=== PATIENT | female | born 1980 | race American Indian/Alaskan Native ===

== ENCOUNTER 2017-04-12 13:33 | Emergency (ER) | payer MEDICAID ==
[2017-04-12 13:44] VITALS: BMI 25.9
[2017-04-12] MEDS ORDERED: Sodium Chloride 0.9% 1,000 ML IV ONE (14:11)
--- NOTE | 2017-04-12 14:15 | C.PDOC ---
History Of Present Illness <Beryl Arenas - Last Filed: 04/12/17 20:17> <Hamlet Gonzalez DO - Last Filed: 04/13/17 08:08> 36 y/o female presents to ED with complaints of nausea and vomiting associated with decreased PO intake that began few days ago. Patient also reports few episodes of diarrhea since last night. Denies fever, blood in vomit or stool. Patient states she had an endoscopy done yesterday at another facility. She will follow up with PMD in 2 days then a GI the following days. (Carlos WARRENHamlet) <Beryl Arenas - Last Filed: 04/12/17 20:17> History Per: Patient History/Exam Limitations: no limitations Onset/Duration Of Symptoms: Days Current Symptoms Are (Timing): Still Present Radiation Of Pain To:: None Associated Symptoms: Nausea, Vomiting, Diarrhea. denies: Fever, Chest Pain, Constipation Exacerbating Factors: None Alleviating Factors: None Recent travel outside of the [place]: No Abnormal Vaginal Bleeding: No <Carlos WARRENHamlet - Last Filed: 04/13/17 08:08> Chief Complaint (Nursing): Abdominal Pain Past Medical History Reviewed: Historical Data, Nursing Documentation, Vital Signs - Medical History PMH: Seizures Surgical History: No Surg Hx Family History: States: No Known Family Hx - Social History Hx Alcohol Use: No Hx Substance Use: No - Immunization History Hx Tetanus Toxoid Vaccination: No Hx Influenza Vaccination: Yes Hx Pneumococcal Vaccination: No <Juliandavie Hamlet WARREN - Last Filed: 04/13/17 08:08> Vital Signs: Last Vital Signs Temp 97.8 F 04/12/17 19:24 Pulse 80 04/12/17 19:24 Resp 16 04/12/17 19:24 BP 132/81 04/12/17 19:24 Pulse Ox 100 04/12/17 19:24 Review Of Systems Constitutional: Negative for: Fever, Chills Cardiovascular: Negative for: Chest Pain Respiratory: Negative for: Cough, Shortness of Breath Gastrointestinal: Positive for: Nausea, Vomiting, Diarrhea Genitourinary: Negative for: Dysuria, Hematuria, Vaginal Bleeding Neurological: Negative for: Weakness, Numbness <Carlos WARRENHamlet - Last Filed: 04/13/17 08:08> Physical Exam - Physical Exam Appears: Well, Non-toxic, No Acute Distress Skin: Normal Color, Warm, Dry Head: Atraumatic, Normacephalic Eye(s): bilateral: Normal Inspection Oral Mucosa: Moist Neck: Supple Chest: Symmetrical, No Tenderness Cardiovascular: Rhythm Regular Respiratory: Normal Breath Sounds, No Decreased Breath Sounds, No Rales, No Rhonchi, No Wheezing Gastrointestinal/Abdominal: Soft, Tenderness (mild epigastric ), No Distention, No Guarding, No Rebound Neurological/Psych: Oriented x3, Normal Speech, Normal Cognition <Hamlet Gonzalez DO - Last Filed: 04/13/17 08:08> ED Course And Treatment - Laboratory Results Result Diagrams: 04/12/17 15:12 04/12/17 15:12 Pulse Ox Interpretation: Normal Progress Note: tolerating po Reevaluation Time: 20:17 Reassessment Condition: Improved <Beryl Arenas - Last Filed: 04/12/17 20:17> - Laboratory Results Result Diagrams: 04/12/17 15:12 04/12/17 15:12 O2 Sat by Pulse Oximetry: 96 (RA) Pulse Ox Interpretation: Normal - CT Scan/US Abdomen US Other Rad Studies (CT/US): Read By Radiologist, Radiology Report Reviewed CT/US Interpretation: Right upper quadrant abdominal ultrasound. History: Epigastric abdominal pain. Elevated liver enzymes. Comparison: None available. Technique: Real-time sonography was performed through the right upper quadrant of the abdomen. Findings: Liver: 17.9 centimeters in length. Increased echogenicity of hepatic parenchymal cortex suggestive for fatty infiltration versus hepatic parenchymal disease. Clinical correlation. Gallbladder: Cholelithiasis. Normal gallbladder wall thickness of 2 millimeters. Negative sonographic Pinzon's sign. Common bile duct measures 4 millimeters, within normal limits. Visualized portions of the pancreas are preserved. Pancreatic tail not well visualized. Visualized aorta and IVC are preserved. Right kidney: 11.8 x 5.3 x 5.8 centimeters. No calculi or hydronephrosis. Impression: 1. Cholelithiasis. Normal gallbladder wall thickness of 2 millimeters. No gross wall edema. Negative sonographic Pinzon's sign. 2. Prominent liver with diffuse increased echogenicity suggestive for fatty infiltration versus hepatic parenchymal disease. Clinical correlation. 3. Limited visualization of the pancreas. <Hamlet Gonzalez DO - Last Filed: 04/13/17 08:08> Medical Decision Making <Beryl Arenas - Last Filed: 04/12/17 20:17> <Hamlet Gonzalez DO - Last Filed: 04/13/17 08:08> Medical Decision Making: Administered Pepcid, Zofran, IV fluids. Ordered CT abdomen&pelvis, US of abdomen, blood work, urine culture and urinalysis. (Hamlet Gonzalez DO) Disposition Counseled Patient/Family Regarding: Studies Performed, Diagnosis, Need For Followup, Rx Given - Disposition Disposition Time: 20:18 <Beryl Arenas - Last Filed: 04/12/17 20:17> <Carlos WARRENHamlet - Last Filed: 04/13/17 08:08> - Disposition Referrals: Darvin Fortune MD [Staff Provider] - Disposition: HOME/ ROUTINE Condition: FAIR Additional Instructions: Please return if symptoms recur Prescriptions: Ondansetron ODT [Zofran ODT] 1 odt PO TID #15 odt Instructions: Nausea and Vomiting, Adult, Colic (DC) Forms: [employer] ([place]), Work Excuse - Clinical Impression Clinical Impression: Abdominal pain, Nausea, Vomiting, Diarrhea <Beryl Arenas - Last Filed: 04/12/17 20:17> - Scribe Statement The provider has reviewed the documentation as recorded by the Scribe <Carlos WARRENHamlet - Last Filed: 04/13/17 08:08> - Scribe Statement Flores Phillips All medical record entries made by the Scribe were at my direction and personally dictated by me. I have reviewed the chart and agree that the record accurately reflects my personal performance of the history, physical exam, medical decision making, and the department course for this patient. I have also personally directed, reviewed, and agree with the discharge instructions and disposition. (Hamlet Gonzalez DO)
[2017-04-12] MEDS ORDERED: Sodium Chloride 0.9% 1,000 ML ONE (14:37)
[2017-04-12 15:15] LABS: BASO % 0.3 % (0.0-2.0); EOS % 0.3 % (0.0-4.0); HEMOGLOBIN 10.8 g/dL (11.0-16.0); LYMPH # 0.7 K/uL (1.0-4.3); LYMPH % 15.7 % (20.0-40.0); MEAN CELL VOLUME 85.6 fL (81.0-99.0); MEAN CORPUSCULAR HEMOGLOBIN 28.6 pg (27.0-31.0); MEAN CORPUSCULAR HGB CONC 33.4 g/dL (33.0-37.0); MEAN PLATELET VOLUME 9.6 fL (7.2-11.7); MONO # 0.4 K/uL (0.0-0.8); MONO % 8.2 % (0.0-10.0); NEUT # 3.3 K/uL (1.8-7.0); NEUT % 75.5 % (50.0-75.0); NRBC % 0.1 % (0.0-2.0); RBC 3.76 Mil/uL (3.80-5.20); RED CELL DISTRIBUTION WIDTH 13.1 % (11.5-14.5); WHITE BLOOD COUNT 4.4 K/uL (4.8-10.8)
[2017-04-12 15:27] LABS: ALB/GLOB RATIO 0.7 (1.0-2.1); ALBUMIN 3.5 g/dL (3.5-5.0); CALCIUM 8.8 mg/dl (8.6-10.4)
--- NOTE | 2017-04-12 16:53 | US ---
Right upper quadrant abdominal ultrasound History: Epigastric abdominal pain. Elevated liver enzymes. Comparison: None available. Technique: Real-time sonography was performed through the right upper quadrant of the abdomen. Findings: Liver: 17.9 centimeters in length. Increased echogenicity of hepatic parenchymal cortex suggestive for fatty infiltration versus hepatic parenchymal disease. Clinical correlation. Gallbladder: Cholelithiasis. Normal gallbladder wall thickness of 2 millimeters. Negative sonographic Pinzon's sign. Common bile duct measures 4 millimeters, within normal limits. Visualized portions of the pancreas are preserved. Pancreatic tail not well visualized. Visualized aorta and IVC are preserved. Right kidney: 11.8 x 5.3 x 5.8 centimeters. No calculi or hydronephrosis. Impression: 1. Cholelithiasis. Normal gallbladder wall thickness of 2 millimeters. No gross wall edema. Negative sonographic Pinzon's sign. 2. Prominent liver with diffuse increased echogenicity suggestive for fatty infiltration versus hepatic parenchymal disease. Clinical correlation. 3. Limited visualization of the pancreas.
[2017-04-12 17:04] LABS: SQUAMOUS EPITHIAL 1 /hpf (0-5); URINE BACTERIA RARE (<OCC); URINE BILIRUBIN NEGATIVE (NEGATIVE); URINE BLOOD NEGATIVE (NEGATIVE); URINE CLARITY Hazy (Clear); URINE COLOR Yellow (YELLOW); URINE GLUCOSE (UA) NORMAL (Normal); URINE LEUKOCYTE ESTERASE NEG Leu/uL (Negative); URINE NITRATE NEGATIVE (NEGATIVE); URINE PROTEIN 2+ mg/dL (NEGATIVE); URINE UROBILINOGEN NORMAL mg/dL (0.2-1.0)
[2017-04-12 19:25] VITALS: BP 132/81; PULSE 80; RESP 16; TEMP 97.8
--- NOTE | 2017-04-12 20:02 | CT ---
EXAM: CT Abdomen and Pelvis Without Intravenous Contrast EXAM DATE/TIME: Exam ordered 04/12/2017 5:46 PM CLINICAL HISTORY: 36 years old, female; Pain; Abdominal pain; Flank; Right upper quadrant (ruq); Additional info: Upper abdominal pain TECHNIQUE: Axial computed tomography images of the abdomen and pelvis without intravenous contrast. All CT scans at this facility use one or more dose reduction techniques, viz.: automated exposure control; ma/kV adjustment per patient size (including targeted exams where dose is matched to indication; i.e. head); or iterative reconstruction technique. Coronal and sagittal reformatted images were created and reviewed. COMPARISON: No relevant prior studies available. FINDINGS: Lower thorax: Hypoventilatory changes are noted in the dependent portion of both lung bases. ABDOMEN: Liver: Unremarkable. Gallbladder and bile ducts: Unremarkable. No calcified stones. No ductal dilation. Pancreas: Unremarkable. No ductal dilation. Spleen: Unremarkable. No splenomegaly. Adrenals: Unremarkable. No mass. Kidneys and ureters: There is a 2.2 mm calcification in the lower pole the right kidney. The distal right ureter is not clearly seen. A 2 mm calcification is noted in the region of the right distal ureter proximal to the ureterovesicular junction. There is minimal asymmetric stranding of the intrarenal that of the right kidney. Stomach and bowel: Unremarkable. No obstruction. No mucosal thickening. Appendix: No findings to suggest acute appendicitis. PELVIS: Bladder: Unremarkable. No stones. Reproductive: Unremarkable as visualized. ABDOMEN and PELVIS: Intraperitoneal space: Unremarkable. No free air. No significant fluid collection. Bones/joints: A cyst is noted on the iliac side of the left sacroiliac joint. No acute fracture. No dislocation. Soft tissues: Unremarkable. Vasculature: Unremarkable. No abdominal aortic aneurysm. Lymph nodes: Unremarkable. No enlarged lymph nodes. IMPRESSION: 1. 2.2 mm calcification in the lower pole of the right kidney with minimal asymmetric stranding of the intrarenal fat. 2. Poor visualization of the distal ureter as a discrete structure. 2 mm calcification noted in the region of the distal right ureter proximal to the ureterovesicular junction. This could represent a ureteral calculus or a vascular calcification.
[2017-04-13 08:09] VITALS: O2SAT 96
== END 2017-04-12 20:45 | disposition home or self-care (01) ==
LOC: C.ER 13:33
DX: R19.7 Diarrhea, unspecified (principal); R11.2 Nausea with vomiting, unspecified; R10.9 Unspecified abdominal pain
CPT/HCPCS: 74176; 76705; 80053; 81001; 83690; 85025; 87086; 87181; 96374; 96375; 99285; J2405; J7040

== ENCOUNTER 2017-05-04 14:28 | Emergency (ER) | payer MEDICAID ==
[2017-05-04 14:57] VITALS: BMI 25.8
[2017-05-04] MEDS ORDERED: Sodium Chloride 0.9% 1,000 ML IV ONE (15:34)
[2017-05-04] MEDS ORDERED: DiphenhydrAMINE 50 mg/ml Inj IVP STA (15:35)
--- NOTE | 2017-05-04 15:39 | C.PDOC ---
History Of Present Illness 36 yo female w/PMHx of SLE come in for evaluation of gradual onset of generalized bodyaches since today 5 AM. Pt sts, " all my muscle hurts". Pt denies recent illness, fever, chills, headache, dizziness, visual changes, neck pain, drooling, dysphasia, cough, dyspnea, CP, SOB, wheezing, palpitation, abd. pain, N/V/D, UTi sx, vaginal irritation or discharges. Ambulate to Ed, appears in pain, crying. Time Seen by Provider: 05/04/17 14:58 Chief Complaint (Nursing): Pain, Chronic History Per: Patient Onset/Duration Of Symptoms: Gradual Past Medical History Reviewed: Historical Data, Nursing Documentation, Vital Signs Vital Signs: Last Vital Signs Temp 98 F 05/04/17 17:14 Pulse 100 H 05/04/17 17:14 Resp 25 H 05/04/17 17:14 BP 154/100 H 05/04/17 17:14 Pulse Ox 100 05/04/17 17:14 - Medical History PMH: Gall Bladder Disease (Gallstones), Seizures Family History: States: No Known Family Hx - Social History Hx Tobacco Use: No Hx Alcohol Use: No Hx Substance Use: No - Immunization History Hx Tetanus Toxoid Vaccination: No Hx Influenza Vaccination: No Hx Pneumococcal Vaccination: No Review Of Systems Except As Marked, All Systems Reviewed And Found Negative. Constitutional: Negative for: Fever, Chills Eyes: Negative for: Vision Change ENT: Negative for: Ear Discharge, Nose Discharge, Throat Pain Cardiovascular: Negative for: Chest Pain Respiratory: Negative for: Cough, Shortness of Breath, Wheezing Gastrointestinal: Negative for: Nausea, Vomiting, Abdominal Pain, Diarrhea Genitourinary: Negative for: Dysuria Musculoskeletal: Positive for: Other (generalized bodyaches) Skin: Negative for: Rash Neurological: Negative for: Weakness, Numbness, Altered Mental Status, Headache , Dizziness Physical Exam - Physical Exam Appears: Well, Non-toxic, No Acute Distress Skin: Normal Color, Warm, Dry, No Rash Head: Normacephalic Eye(s): bilateral: PERRL Ear(s): Bilateral: Normal Nose: No Flaring, No Discharge Oral Mucosa: Moist, No Drooling Gingiva: No Erythema Throat: No Erythema, No Drooling Neck: Trachea Midline, No Midline Cervical Tenderness, No Paracervical Tenderness, No Step Off Deformity, Supple Cardiovascular: Rhythm Regular, No Murmur, No JVD Respiratory: No Decreased Breath Sounds, No Accessory Muscle Use, No Stridor, No Wheezing Gastrointestinal/Abdominal: Soft, No Tenderness, No Distention, No Guarding Back: No CVA Tenderness Extremity: Normal ROM, No Deformity, No Swelling Neurological/Psych: Oriented x3, Normal Speech, Normal Motor, Normal Sensation, Normal Reflexes ED Course And Treatment - Laboratory Results Result Diagrams: 05/04/17 15:48 05/04/17 15:48 Lab Interpretation: No Changes Compared To Prior Results ECG: Interpreted By Me, Viewed By Me (and ED attending) ECG Rhythm: Sinus Tachycardia Interpretation Of ECG: Sinus tachy@102/min, LAD, no acute T wave or ST-T changes. - Radiology CXR: Interpreted by Me, Viewed By Me CXR Interpretation: Yes: No Acute Disease Progress Note: AT 16:30, pt still in pain, crying, c/o generalized pain " my all muscle and joint aches". Morphine given. Pt was OBS in ED for 3.5 hour in ED. At 18:02, pt resting comfortably in bed, not in any apparent distress now. Pt admits, moderate improvement in pain after ED treatment. On re-evaluation, pt is afebrile, hemodynamicaly stable. Non-toxic. Ambulatory in ED with stable gait. PulseOx 100% RA. Neck: Supple, (-) meningeal sign, (-) JVD, (-) carotid bruits B/L. ENT: no acute findings. Lungs: CTA B/L, BS equal B/L. CVS : (+)S1S2, reg. Abd: benign, (-) guarding, (-) rebound. back: (-) CVA tenderness. Neurologicaly intact. Case discussed with ED attending , blood work review and appears without acute changes compare to previous visits. UA- (+)RBC pt admits on menstrual now. As per , steroid initiated, pt improved, and pt is stable for discharge with outpt f/u now. Attempt to call and have made, no response for 3 hours. results review and discussed with patient. Pt advised. ref. to f/u with PMD, Rh in 1 day for re- eval without fail. Return to ED if any worsening or new changes. Pt understand and agrees with discharges. Disposition Counseled Patient/Family Regarding: Studies Performed, Diagnosis, Need For Followup, Rx Given - Disposition Referrals: Hamlet Gillette DO [Doctor Osteopathy] - Darvin Fortune MD [Staff Provider] - Disposition: HOME/ ROUTINE Disposition Time: 18:15 Condition: STABLE Additional Instructions: Encourage fluids Take medication as prescribed Follow up with PMD, Rheumatology in 1 day without fail for re-evaluation. Return to ED if any worsening or new changes. Prescriptions: Prednisone [Deltasone] 40 mg PO DAILY #8 tablet traMADol [Ultram] 50 mg PO TID #10 tab Instructions: Lupus Forms: [facility] (Japanese), Work Excuse - Clinical Impression Clinical Impression: Myalgia, Arthralgia, Lupus (systemic lupus erythematosus)
[2017-05-04] MEDS ORDERED: DiphenhydrAMINE 50 mg/ml Inj ONE (15:40)
[2017-05-04] MEDS ORDERED: Sodium Chloride 0.9% 1,000 ML ONE (15:42)
[2017-05-04 15:56] LABS: BASO % 0.2 % (0.0-2.0); EOS % 0.9 % (0.0-4.0); HEMOGLOBIN 10.5 g/dL (11.0-16.0); LYMPH # 0.7 K/uL (1.0-4.3); LYMPH % 15.3 % (20.0-40.0); MEAN CELL VOLUME 84.6 fL (81.0-99.0); MEAN CORPUSCULAR HEMOGLOBIN 28.2 pg (27.0-31.0); MEAN CORPUSCULAR HGB CONC 33.3 g/dL (33.0-37.0); MEAN PLATELET VOLUME 9.5 fL (7.2-11.7); MONO # 0.3 K/uL (0.0-0.8); MONO % 6.1 % (0.0-10.0); NEUT # 3.8 K/uL (1.8-7.0); NEUT % 77.5 % (50.0-75.0); RBC 3.74 Mil/uL (3.80-5.20); RED CELL DISTRIBUTION WIDTH 13.5 % (11.5-14.5); WHITE BLOOD COUNT 4.9 K/uL (4.8-10.8)
[2017-05-04 16:09] LABS: ALB/GLOB RATIO 0.6 (1.0-2.1); ALBUMIN 3.5 g/dL (3.5-5.0); CALCIUM 8.5 mg/dl (8.6-10.4)
[2017-05-04 16:19] LABS: HCG,QUALITATIVE URINE NEGATIVE (NEGATIVE)
[2017-05-04 16:28] LABS: SQUAMOUS EPITHIAL 2 /hpf (0-5); URINE BACTERIA RARE (<OCC); URINE BILIRUBIN NEGATIVE (NEGATIVE); URINE BLOOD 2+ (NEGATIVE); URINE CLARITY Hazy (Clear); URINE COLOR Yellow (YELLOW); URINE GLUCOSE (UA) NORMAL (Normal); URINE HYALINE CAST 0-2 /lpf (0-2); URINE LEUKOCYTE ESTERASE TRACE Leu/uL (Negative); URINE PROTEIN 2+ mg/dL (NEGATIVE); URINE UROBILINOGEN NORMAL mg/dL (0.2-1.0)
[2017-05-04] MEDS ORDERED: Morphine 4 MG/ML VIAL ONE (16:47)
--- NOTE | 2017-05-04 17:12 | RAD ---
HISTORY: pain gen COMPARISON: No prior. TECHNIQUE: Chest PA and lateral FINDINGS: LUNGS: No active pulmonary disease. PLEURA: No significant pleural effusion identified. No pneumothorax apparent. CARDIOVASCULAR: Normal. OSSEOUS STRUCTURES: No significant abnormalities. VISUALIZED UPPER ABDOMEN: Normal. OTHER FINDINGS: None. IMPRESSION: No active disease.
[2017-05-04 18:13] LABS: BARBITURATES, UR NEGATIVE (NEGATIVE); BENZODIAZEPINES, UR NEGATIVE (NEGATIVE); OPIATES, UR NEGATIVE (NEGATIVE); PHENCYCLIDINE, UR NEGATIVE (NEGATIVE)
[2017-05-04 18:33] VITALS: BP 120/97; PULSE 101; TEMP 98.3
[2017-05-04 18:54] VITALS: RESP 18; O2SAT 100
== END 2017-05-04 18:54 | disposition home or self-care (01) ==
LOC: C.ER 14:28
DX: M79.1 Myalgia (principal); M32.9 Systemic lupus erythematosus, unspecified; M25.50 Pain in unspecified joint
CPT/HCPCS: 71046; 80053; 80324; 80345; 80346; 80349; 80353; 80358; 80361; 81001; 82550; 83992; 84703; 85025; 87804; 93005; 96361; 96374; 96375; 99285; J1200; J1885; J2270; J2930; J7040

== ENCOUNTER 2017-05-11 21:15 | Inpatient (IN) | payer BC, MEDICAID ==
[2017-05-11 21:16] VITALS: BMI 25.8
[2017-05-11] MEDS ORDERED: Sodium Chloride 0.9% 1,000 ML IV ONE (21:45)
--- NOTE | 2017-05-11 21:50 | C.PDOC ---
History Of Present Illness 36 y/o female presents to the ED with abdominal pain. Patient seen here for the same complaint earlier this month and was diagnosed with gall stones. States she followed up with Dr. Edward, with no plan for surgical intervention and was advised to return for persisting pain. Today patient had creamy soup and around 8pm she developed sudden onset of right upper quadrant pain associated with nausea and vomiting. No fevers or diarrhea. Time Seen by Provider: 05/11/17 21:37 Chief Complaint (Nursing): Abdominal Pain History Per: Patient History/Exam Limitations: no limitations Onset/Duration Of Symptoms: Hrs Current Symptoms Are (Timing): Still Present Context: Food Location Of Pain/Discomfort: RUQ Past Medical History Reviewed: Historical Data, Nursing Documentation, Vital Signs Vital Signs: Last Vital Signs Temp 97.8 F 05/11/17 21:31 Pulse 91 H 05/11/17 21:31 Resp 18 05/11/17 21:31 BP 128/83 05/11/17 21:31 Pulse Ox 96 05/11/17 22:37 - Medical History PMH: Gall Bladder Disease (Gallstones), HTN, Seizures Denies: Chronic Kidney Disease Surgical History: No Surg Hx Family History: States: No Known Family Hx - Social History Hx Tobacco Use: No Hx Alcohol Use: No Hx Substance Use: No - Immunization History Hx Tetanus Toxoid Vaccination: No Hx Influenza Vaccination: Yes Hx Pneumococcal Vaccination: No Review Of Systems Except As Marked, All Systems Reviewed And Found Negative. Constitutional: Negative for: Fever, Chills Gastrointestinal: Positive for: Nausea, Vomiting, Abdominal Pain (RUQ). Negative for: Diarrhea Physical Exam - Physical Exam Appears: No Acute Distress, Other (Uncomfortable) Skin: Normal Color, Warm, Dry Head: Atraumatic, Normacephalic Eye(s): bilateral: Normal Inspection, PERRL, EOMI Nose: Normal Oral Mucosa: Moist Neck: Normal ROM, Supple Chest: Symmetrical Cardiovascular: Rhythm Regular Respiratory: Normal Breath Sounds, No Accessory Muscle Use Gastrointestinal/Abdominal: Soft, Tenderness (to epigastrium and right upper quadrant), Guarding Back: Normal Inspection, No CVA Tenderness, No Vertebral Tenderness Extremity: Bilateral: Atraumatic, Normal Color And Temperature, Normal ROM Neurological/Psych: Oriented x3, Normal Speech ED Course And Treatment - Laboratory Results Result Diagrams: 05/11/17 21:55 05/11/17 21:55 Lab Interpretation: Abnormal (Lipase 730, BUN 28, AST 52) O2 Sat by Pulse Oximetry: 96 (RA) Pulse Ox Interpretation: Normal Progress Note: Patient seen in the ED by surgery resident covering Dr Edward. - Physician Consult Information Time Consulting Physician Contacted: 23:27 Physician Contacted: Blane Edward Jr. Outcome Of Conversation: Patient to be admitted for treatment of gallstone pancreatitis. Medical Decision Making Medical Decision Making: Time: 21:43 Initial Plan: --Basic blood work --Lipase --IVF hydration --Toradol 30 mg IVP -- urine preg --US Abdomen Complete Disposition - Disposition Disposition: HOSPITALIZED Disposition Time: 23:27 Condition: STABLE - POA Present On Arrival: None - Clinical Impression Clinical Impression: Gallstone pancreatitis - Scribe Statement The provider has reviewed the documentation as recorded by the Lavern Méndez Provider Attestation: All medical record entries made by the Lavern were at my direction and personally dictated by me. I have reviewed the chart and agree that the record accurately reflects my personal performance of the history, physical exam, medical decision making, and the department course for this patient. I have also personally directed, reviewed, and agree with the discharge instructions and disposition.
[2017-05-11 21:58] LABS: BASO % 0.1 % (0.0-2.0); EOS % 0.2 % (0.0-4.0); HEMOGLOBIN 10.2 g/dL (11.0-16.0); LYMPH % 19.4 % (20.0-40.0); MEAN CELL VOLUME 84.1 fL (81.0-99.0); MEAN CORPUSCULAR HEMOGLOBIN 27.7 pg (27.0-31.0); MEAN CORPUSCULAR HGB CONC 32.9 g/dL (33.0-37.0); MEAN PLATELET VOLUME 8.6 fL (7.2-11.7); MONO # 0.4 K/uL (0.0-0.8); MONO % 7.5 % (0.0-10.0); NEUT # 3.8 K/uL (1.8-7.0); NEUT % 72.8 % (50.0-75.0); NRBC % 0.1 % (0.0-2.0); RBC 3.7 Mil/uL (3.80-5.20); RED CELL DISTRIBUTION WIDTH 13.8 % (11.5-14.5); WHITE BLOOD COUNT 5.2 K/uL (4.8-10.8)
[2017-05-11 22:16] LABS: ALB/GLOB RATIO 0.7 (1.0-2.1); ALBUMIN 3.6 g/dL (3.5-5.0); ALT/SGPT 36 U/L (9-52); AST/SGOT 52 U/L (14-36); BLOOD UREA NITROGEN 28 mg/dL (7-17); CALCIUM 8.8 mg/dl (8.6-10.4); GFR AFRICAN-AMERICAN > 60; GFR NON-AFRICAN AMERICAN > 60; LIPASE 730 U/L (23-300)
--- NOTE | 2017-05-11 23:04 | CP.PCM.CON ---
Past Patient History - Infectious Disease Hx of Infectious Diseases: None - Past Social History Smoking Status: Never Smoked - CARDIAC Hx Hypertension: Yes - PULMONARY Hx Respiratory Disorders: No - NEUROLOGICAL Hx Seizures: Yes - HEENT Hx HEENT Problems: No - RENAL Hx Chronic Kidney Disease: No - ENDOCRINE/METABOLIC Hx Endocrine Disorders: Yes Hx Systemic Lupus Erythematosus: Yes - HEMATOLOGICAL/ONCOLOGICAL Hx Blood Disorders: No - INTEGUMENTARY Hx Dermatological Problems: No - MUSCULOSKELETAL/RHEUMATOLOGICAL Hx Musculoskeletal Disorders: No - GASTROINTESTINAL Hx Gall Bladder Disease: Yes (Gallstones) - GENITOURINARY/GYNECOLOGICAL Hx Genitourinary Disorders: No - PSYCHIATRIC Hx Substance Use: No - SURGICAL HISTORY Hx Surgeries: No - ANESTHESIA Hx Anesthesia: No Meds Allergies/Adverse Reactions: Allergies Allergy/AdvReac Type Severity Reaction Status Date / Time No Known Allergies Allergy Verified 05/11/17 21:35 Results - Vital Signs Recent Vital Signs: Last Vital Signs Temp 97.8 F 05/11/17 21:31 Pulse 91 H 05/11/17 21:31 Resp 18 05/11/17 21:31 BP 128/83 05/11/17 21:31 Pulse Ox 96 05/11/17 22:37 - Labs Result Diagrams: 05/11/17 21:55 05/11/17 21:55 Labs: Laboratory Results - last 24 hr 05/11/17 05/11/17 05/11/17 21:55 21:55 22:43 WBC 5.2 RBC 3.70 L Hgb 10.2 L Hct 31.1 L MCV 84.1 MCH 27.7 MCHC 32.9 L RDW 13.8 Plt Count 266 MPV 8.6 Neut % (Auto) 72.8 Lymph % (Auto) 19.4 L [place] % (Auto) 7.5 Eos % (Auto) 0.2 Baso % (Auto) 0.1 Neut # (Auto) 3.8 Lymph # (Auto) 1.0 [place] # (Auto) 0.4 Eos # (Auto) 0.0 Baso # (Auto) 0.0 Sodium 137 Potassium 4.4 Chloride 104 Carbon Dioxide 24 Anion Gap 14 BUN 28 H Creatinine 1.0 Est GFR ( Amer) > 60 Est GFR (Non-Af Amer) > 60 Random Glucose 108 H Calcium 8.8 Total Bilirubin 0.4 AST 52 H ALT 36 Alkaline Phosphatase 124 Total Protein 8.7 H Albumin 3.6 Globulin 5.1 H Albumin/Globulin Ratio 0.7 L Lipase 730 H Urine HCG, Qual Negative
--- NOTE | 2017-05-11 23:29 | US ---
EXAM: US Abdomen Complete CLINICAL HISTORY: 36 years old, female; Pain; Abdominal pain; Generalized; Additional info: Abd pain TECHNIQUE: Real-time ultrasound of the abdomen (complete) with image documentation. COMPARISON: CT - ABD PELVIS W/O PO OR IV CONT 2017-04-12 19:06 FINDINGS: Liver: Fatty infiltration. No mass. No intrahepatic ductal dilatation. Gallbladder: Gallstones. No wall thickening. No pericholecystic fluid. No sonographic Pinzon's sign. Common bile duct: No dilatation. No stones. Pancreas: Unremarkable as visualized. Kidneys: Normal echogenicity. No hydronephrosis. Spleen: No splenomegaly. Aorta: Unremarkable. No aneurysm. Inferior vena cava: Unremarkable. Free fluid: No significant free fluid. IMPRESSION: 1. Cholelithiasis. 2. Incidental/non-acute findings are described above.
[2017-05-11] MEDS ORDERED: Sodium Chloride 0.9% 1,000 ML IV SCH (23:45)
--- NOTE | 2017-05-12 00:07 | CP.PCM.HP ---
History of Present Illness - History of Present Illness History of Present Illness: Surgery H&P. Dr. Edward 36yo F with PMHx of Lupus, Seizures, HTN here for evaluation of abdominal pain. Patient states that the pain is located in the RUQ, described as sharp, started at 8PM today. Last meal was 5PM (cream soup and beans). She reports mild nausea for the past week and vomiting which started today at 8PM, non bilious, non bloody. She reports similar episodes of pain previously and attributes it to her known gallstones. Denies any F/C. No CP/SOB. No headaches. Denies any urinary complaints. Denies any bowel habit changes. No sick contacts. PMHx: Lupus, Seizures, HTN PSHx: Denies Family Hx: DM, HTN (mother and sister) Social Hx: Denies tobacco use, denies ETOH, Denies illicit drugs. Lives at home with family NKDA Present on Admission - Present on Admission Any Indicators Present on Admission: No Review of Systems - Review of Systems All systems: reviewed and no additional remarkable complaints except - Constitutional Constitutional: Anorexia. absent: Chills, Fever - Cardiovascular Cardiovascular: absent: Chest Pain, Dyspnea - Gastrointestinal Gastrointestinal: Abdominal Pain, Nausea, Vomiting. absent: Change in Bowel Habits, Diarrhea, Hematemesis, Hematochezia - Genitourinary Genitourinary: absent: Difficulty Urinating, Dysuria - Neurological Neurological: absent: Dizziness, Headaches Past Patient History - Infectious Disease Hx of Infectious Diseases: None - Past Social History Smoking Status: Never Smoked Alcohol: None Drugs: Denies Home Situation {Lives}: With Family - CARDIAC Hx Hypertension: Yes - PULMONARY Hx Respiratory Disorders: No - NEUROLOGICAL Hx Seizures: Yes - HEENT Hx HEENT Problems: No - RENAL Hx Chronic Kidney Disease: No - ENDOCRINE/METABOLIC Hx Endocrine Disorders: Yes Hx Systemic Lupus Erythematosus: Yes - HEMATOLOGICAL/ONCOLOGICAL Hx Blood Disorders: No - INTEGUMENTARY Hx Dermatological Problems: No - MUSCULOSKELETAL/RHEUMATOLOGICAL Hx Musculoskeletal Disorders: No - GASTROINTESTINAL Hx Gall Bladder Disease: Yes (Gallstones) - GENITOURINARY/GYNECOLOGICAL Hx Genitourinary Disorders: No - PSYCHIATRIC Hx Substance Use: No - SURGICAL HISTORY Hx Surgeries: No - ANESTHESIA Hx Anesthesia: No Meds Allergies/Adverse Reactions: Allergies Allergy/AdvReac Type Severity Reaction Status Date / Time No Known Allergies Allergy Verified 05/11/17 21:35 Physical Exam - Constitutional Appears: Non-toxic, No Acute Distress - Head Exam Head Exam: ATRAUMATIC, NORMAL INSPECTION, NORMOCEPHALIC - Eye Exam Eye Exam: EOMI, Normal appearance. absent: Scleral icterus - ENT Exam ENT Exam: Mucous Membranes Dry - Respiratory Exam Respiratory Exam: NORMAL BREATHING PATTERN. absent: Accessory Muscle Use, Respiratory Distress - Cardiovascular Exam Cardiovascular Exam: RRR. absent: JVD - GI/Abdominal Exam GI & Abdominal Exam: Soft. absent: Distended, Firm, Guarding, Rebound, Rigid Additional comments: Tender to palpation RUQ and epigastric area. Does exhibit positive Pinzon's sign soft, non-distended. No rebound. no guarding. - Extremities Exam Extremities exam: Positive for: normal inspection. Negative for: calf tenderness - Neurological Exam Neurological exam: Alert, Oriented x3 - Skin Skin Exam: Dry, Intact, Normal Color, Warm Results - Vital Signs Recent Vital Signs: Last Vital Signs Temp 97.8 F 05/11/17 21:31 Pulse 91 H 05/11/17 21:31 Resp 18 05/11/17 21:31 BP 128/83 05/11/17 21:31 Pulse Ox 96 05/11/17 23:34 - Labs Result Diagrams: 05/11/17 21:55 05/11/17 21:55 Labs: Laboratory Results - last 24 hr 05/11/17 05/11/17 05/11/17 21:55 21:55 22:43 WBC 5.2 RBC 3.70 L Hgb 10.2 L Hct 31.1 L MCV 84.1 MCH 27.7 MCHC 32.9 L RDW 13.8 Plt Count 266 MPV 8.6 Neut % (Auto) 72.8 Lymph % (Auto) 19.4 L [place] % (Auto) 7.5 Eos % (Auto) 0.2 Baso % (Auto) 0.1 Neut # (Auto) 3.8 Lymph # (Auto) 1.0 [place] # (Auto) 0.4 Eos # (Auto) 0.0 Baso # (Auto) 0.0 Sodium 137 Potassium 4.4 Chloride 104 Carbon Dioxide 24 Anion Gap 14 BUN 28 H Creatinine 1.0 Est GFR ( Amer) > 60 Est GFR (Non-Af Amer) > 60 Random Glucose 108 H Calcium 8.8 Total Bilirubin 0.4 AST 52 H ALT 36 Alkaline Phosphatase 124 Total Protein 8.7 H Albumin 3.6 Globulin 5.1 H Albumin/Globulin Ratio 0.7 L Lipase 730 H Urine HCG, Qual Negative Assessment & Plan - Assessment and Plan (Free Text) Assessment: 36yo F with possible Gallstone pancreatitis Plan: - IVF - NPO except meds - Pain management - anti-emetics - f/u AM labs - f/u GI consult Further recs as per Dr. Wagner Andrade PGY1 surgery pager: [phone]
[2017-05-12] MEDS ORDERED: Sodium Chloride 0.9% 1,000 ML IV ONE (00:18)
[2017-05-12 01:07] LABS: HDL CHOLESTEROL 37 mg/dL (30-70)
[2017-05-12] MEDS: HYDROmorphone 0.5 mg/0.5 ml ISec IVP PRN (01:14)
[2017-05-12 01:18] LABS: LDL CHOLESTEROL 71 mg/dL (0-129)
[2017-05-12] MEDS: Sodium Chloride 0.45% 1,000 ML IV SCH ×2 (01:23→20:30)
[2017-05-12 08:30] LABS: BASO % 0.3 % (0.0-2.0); EOS % 0.6 % (0.0-4.0); HEMOGLOBIN 10.1 g/dL (11.0-16.0); LYMPH % 27.6 % (20.0-40.0); MEAN CELL VOLUME 84.6 fL (81.0-99.0); MEAN CORPUSCULAR HGB CONC 33.1 g/dL (33.0-37.0); MEAN PLATELET VOLUME 8.3 fL (7.2-11.7); MONO # 0.4 K/uL (0.0-0.8); MONO % 9.3 % (0.0-10.0); NEUT # 2.3 K/uL (1.8-7.0); NEUT % 62.2 % (50.0-75.0); RBC 3.59 Mil/uL (3.80-5.20); RED CELL DISTRIBUTION WIDTH 13.6 % (11.5-14.5); WHITE BLOOD COUNT 3.8 K/uL (4.8-10.8)
[2017-05-12 08:34] LABS: PROTHROMBIN TIME 10.8 SECONDS (9.7-12.2)
[2017-05-12 09:42] LABS: ALB/GLOB RATIO 0.7 (1.0-2.1); ALT/SGPT 58 U/L (9-52); AST/SGOT 122 U/L (14-36); BLOOD UREA NITROGEN 23 mg/dL (7-17); CALCIUM 7.9 mg/dl (8.6-10.4); GFR AFRICAN-AMERICAN > 60; GFR NON-AFRICAN AMERICAN > 60
[2017-05-12] MEDS: Enoxaparin 40 mg Syringe SC SCH (10:38)
--- NOTE | 2017-05-12 10:47 | CP.PCM.PN ---
Subjective - Date & Time of Evaluation Date of Evaluation: 05/12/17 Time of Evaluation: 10:25 - Subjective Subjective: Medicine progress note for Dr. Horvath's service: Patient is a 36 year old female with PMHx lupus, HTN, seizures who presented to the ED on 05/11/17 with complaint of epigastric/ RUQ abdominal pain. Patient was first seen in our ED on 04/12/17 with similar complaint and diagnosed with gallstones by abdominal US/ CT. She was discharged at that time to follow up with Dr. Fortune, her PMD. Patient returned on 05/04/17 to the ED with complaint of diffuse pain. Patient advised to follow up with her PMD and sales applications engineer at that time. Patient now returns to the ED with complaint of persistent abdominal pain. Patient states she saw Dr. Edward as outpatient. Patient states she was advised to return to hospital due to persistent nature of pain. Patient currently NPO as per surgical team and states her pain has decreased although she admits to nausea. Objective - Vital Signs/Intake and Output Vital Signs (last 24 hours): Temp Pulse Resp BP Pulse Ox 97.9 F 91 H 20 122/84 96 05/12/17 08:04 05/12/17 08:04 05/12/17 08:04 05/12/17 08:04 05/12/17 08:04 Intake and Output: 05/12/17 05/12/17 06:59 18:59 Intake Total 1999 Balance 1999 - Medications Medications: Current Medications Enoxaparin Sodium (Lovenox) 40 mg SC DAILY [facility] Hydromorphone HCl (Dilaudid) 0.5 mg IVP Q6H PRN PRN Reason: Pain, severe (8-10) Last Admin: 05/12/17 01:14 Dose: 0.5 mg Hydroxychloroquine Sulfate (Plaquenil) 200 mg PO DAILY [facility] PRN Reason: Protocol Sodium Chloride (Sodium Chloride 0.45%) 1,000 mls @ 200 mls/hr IV .Q5H [facility] Last Admin: 05/12/17 01:23 Dose: 200 mls/hr Ketorolac Tromethamine (Toradol) 15 mg IV Q6 PRN PRN Reason: Pain, moderate (4-7) Levetiracetam (Keppra) 500 mg PO TID [facility] Lisinopril (Zestril) 10 mg PO DAILY [facility] Methotrexate (Methotrexate) 10 mg PO QWK [facility] Ondansetron HCl (Zofran Inj) 4 mg IVP Q6 PRN PRN Reason: Nausea/Vomiting Pneumococcal Polyvalent Vaccine (Pneumovax 23 Vaccine) 0.5 ml IM .ONCE ONE Stop: 05/15/17 10:01 - Labs Labs: 05/12/17 08:27 05/12/17 09:21 PT 10.8 SECONDS (9.7-12.2) 05/12/17 08:27 INR 1.0 05/12/17 08:27 APTT 24 SECONDS (21-34) 05/12/17 08:27 - Eye Exam Eye Exam: EOMI - ENT Exam ENT Exam: Mucous Membranes Moist - Respiratory Exam Respiratory Exam: Clear to Ausculation Bilateral, NORMAL BREATHING PATTERN - Cardiovascular Exam Cardiovascular Exam: +S1, +S2 - GI/Abdominal Exam GI & Abdominal Exam: Soft, Tenderness (epigastric), Normal Bowel Sounds. absent : Distended, Guarding, Rigid - Extremities Exam Extremities Exam: Normal Inspection. absent: Pedal Edema - Neurological Exam Neurological Exam: Alert, Awake - Psychiatric Exam Psychiatric exam: Normal Affect - Skin Skin Exam: Warm Assessment and Plan - Assessment and Plan (Free Text) Assessment: 36 year old female with persistent epigastric/ RUQ pain, possible gallstone pancreatitis Gallstone pancreatitis initial lipase 730 patient NPO per surgical team Abd US 05/11/17: cholelithiasis, no wall thickening or pericholecystic fluid. pancreas unremarkable as visualized Surgery, Dr. Edward, consulted- help appreciated GI, Dr. Oliver, consulted- help appreciated continue toradol and zofran for pain control and nausea, respectively History Lupus continue home medication plaquenil 200mg PO daily continue methotrexate 10mg PO weekly (takes four 2.5mg tablets on Friday) prednisone listed in home medications only for lupus flares- not currently taking History seizures continue home medication keppra 500mg PO TID History HTN continue home medication lisinopril 10mg PO daily Prophylactic measure lovenox 40mg SC daily all management as per Dr. Horvath
--- NOTE | 2017-05-12 12:18 | CP.PCM.CON ---
<Marie Horvath - Last Filed: 05/12/17 12:31> History of Present Illness - History of Present Illness History of Present Illness: PGY 4 GI Initial Consult Note Yanci Fernández is a 36F w/ hx of Lupus, seizures, HTN who presents to the ER with complaints of abd pain. Patient states that the pain is located in the RUQ , described as sharp and radiating towards the back. She states that it started last night after her last meal of cream soup and beans. She reports mild nausea for the past week and vomiting, non bilious, non bloody. She reports similar episode of pain for which she presented to the ER in 03/2017 week prior. At that time it was previously attributes her known gallstones. She was again seen in the ER 1 week ago for joint pain. She was discharged on prednisone 20mg PO daily for likely lupus flare. She notes that she is chronically constipated and only has a BM weekly. She describes her stools as hard. She denies any recent weightloss. She does take plaquenil daily but denies any recent medication changes. She reports have an EGD in Dec at [facility] for abd pain. she was found to have gastritis. She denies any melena or hematemesis. PMHx: Lupus, Seizures, HTN PSHx: Denies Family Hx: DM, HTN (mother and sister) Social Hx: Denies tobacco use, denies ETOH, Denies illicit drugs. Lives at home with family Endo hx: EGD DEC 2016 ROS: 12 point ROS conducted, neg other than above. Past Patient History - Infectious Disease Hx of Infectious Diseases: None - Past Medical History & Family History Past Medical History?: Yes - Past Social History Smoking Status: Never Smoked - CARDIAC Hx Hypertension: Yes - PULMONARY Hx Respiratory Disorders: No - NEUROLOGICAL Hx Neurological Disorder: Yes Hx Seizures: Yes (10/2016 last seizure) - HEENT Hx HEENT Problems: No - RENAL Hx Chronic Kidney Disease: No - ENDOCRINE/METABOLIC Hx Endocrine Disorders: Yes Hx Systemic Lupus Erythematosus: Yes - HEMATOLOGICAL/ONCOLOGICAL Hx Blood Disorders: No - INTEGUMENTARY Hx Dermatological Problems: No - MUSCULOSKELETAL/RHEUMATOLOGICAL Hx Falls: No - GASTROINTESTINAL Hx Gastrointestinal Disorders: Yes Hx Gall Bladder Disease: Yes (Gallstones) - GENITOURINARY/GYNECOLOGICAL Hx Genitourinary Disorders: No - PSYCHIATRIC Hx Substance Use: No - SURGICAL HISTORY Hx Surgeries: No - ANESTHESIA Hx Anesthesia: No Hx Anesthesia Reactions: No Hx Malignant Hyperthermia: No Has any member of the family had a problem w/ anesthesia?: No Meds Allergies/Adverse Reactions: Allergies Allergy/AdvReac Type Severity Reaction Status Date / Time No Known Allergies Allergy Verified 05/11/17 21:35 - Medications Medications: Current Medications Enoxaparin Sodium (Lovenox) 40 mg SC DAILY [facility] Last Admin: 05/12/17 10:38 Dose: Not Given Hydromorphone HCl (Dilaudid) 0.5 mg IVP Q6H PRN PRN Reason: Pain, severe (8-10) Last Admin: 05/12/17 01:14 Dose: 0.5 mg Hydroxychloroquine Sulfate (Plaquenil) 200 mg PO DAILY [facility] PRN Reason: Protocol Last Admin: 05/12/17 10:52 Dose: 200 mg Sodium Chloride (Sodium Chloride 0.45%) 1,000 mls @ 200 mls/hr IV .Q5H [facility] Last Admin: 05/12/17 01:23 Dose: 200 mls/hr Ketorolac Tromethamine (Toradol) 15 mg IV Q6 PRN PRN Reason: Pain, moderate (4-7) Levetiracetam (Keppra) 500 mg PO TID [facility] Last Admin: 05/12/17 10:40 Dose: 500 mg Lisinopril (Zestril) 10 mg PO DAILY [facility] Last Admin: 05/12/17 10:40 Dose: 10 mg Methotrexate (Methotrexate) 10 mg PO QWK [facility] Ondansetron HCl (Zofran Inj) 4 mg IVP Q6 PRN PRN Reason: Nausea/Vomiting Pneumococcal Polyvalent Vaccine (Pneumovax 23 Vaccine) 0.5 ml IM .ONCE ONE Stop: 05/15/17 10:01 Physical Exam - Constitutional Appears: Well, No Acute Distress - Head Exam Head Exam: ATRAUMATIC, NORMOCEPHALIC - Eye Exam Eye Exam: Normal appearance - ENT Exam ENT Exam: Mucous Membranes Moist, Normal Exam - Neck Exam Neck exam: Positive for: Normal Inspection - Respiratory Exam Respiratory Exam: Clear to Auscultation Bilateral, NORMAL BREATHING PATTERN. absent: Rales, Rhonchi, Wheezes, Respiratory Distress - Cardiovascular Exam Cardiovascular Exam: REGULAR RHYTHM, +S1, +S2 - GI/Abdominal Exam GI & Abdominal Exam: Normal Bowel Sounds, Soft, Tenderness (RUQ). absent: Firm , Guarding, Hernia - Extremities Exam Extremities exam: Negative for: joint swelling, pedal edema - Neurological Exam Neurological exam: Alert, Oriented x3 - Psychiatric Exam Psychiatric exam: Normal Affect, Normal Mood - Skin Skin Exam: Dry, Intact, Normal Color, Warm Results - Vital Signs Recent Vital Signs: Last Vital Signs Temp 97.9 F 05/12/17 08:04 Pulse 91 H 05/12/17 08:04 Resp 20 05/12/17 08:04 BP 122/84 05/12/17 08:04 Pulse Ox 96 05/12/17 08:04 - Labs Result Diagrams: 05/12/17 08:27 05/12/17 09:21 Labs: Laboratory Results - last 24 hr 05/11/17 05/11/17 05/11/17 21:55 21:55 22:43 WBC 5.2 RBC 3.70 L Hgb 10.2 L Hct 31.1 L MCV 84.1 MCH 27.7 MCHC 32.9 L RDW 13.8 Plt Count 266 MPV 8.6 Neut % (Auto) 72.8 Lymph % (Auto) 19.[address] [place] % (Auto) 7.5 Eos % (Auto) 0.2 Baso % (Auto) 0.1 Neut # (Auto) 3.8 Lymph # (Auto) 1.0 [place] # (Auto) 0.4 Eos # (Auto) 0.0 Baso # (Auto) 0.0 PT INR APTT Sodium 137 Potassium 4.4 Chloride 104 Carbon Dioxide 24 Anion Gap 14 BUN 28 H Creatinine 1.0 Est GFR ( Amer) > 60 Est GFR (Non-Af Amer) > 60 Random Glucose 108 H Calcium 8.8 Total Bilirubin 0.4 AST 52 H ALT 36 Alkaline Phosphatase 124 Total Protein 8.7 H Albumin 3.6 Globulin 5.1 H Albumin/Globulin Ratio 0.7 L Triglycerides Cholesterol LDL Cholesterol Direct HDL Cholesterol Lipase 730 H Urine HCG, Qual Negative Alcohol, Quantitative 05/12/17 05/12/17 05/12/17 00:58 08:27 08:27 WBC 3.8 L RBC 3.59 L Hgb 10.1 L Hct 30.4 L MCV 84.6 MCH 28.0 MCHC 33.1 RDW 13.6 Plt Count 216 MPV 8.3 Neut % (Auto) 62.2 Lymph % (Auto) 27.6 [place] % (Auto) 9.3 Eos % (Auto) 0.6 Baso % (Auto) 0.3 Neut # (Auto) 2.3 Lymph # (Auto) 1.0 [place] # (Auto) 0.4 Eos # (Auto) 0.0 Baso # (Auto) 0.0 PT 10.8 INR 1.0 APTT 24 Sodium Potassium Chloride Carbon Dioxide Anion Gap BUN Creatinine Est GFR ( Amer) Est GFR (Non-Af Amer) Random Glucose Calcium Total Bilirubin AST ALT Alkaline Phosphatase Total Protein Albumin Globulin Albumin/Globulin Ratio Triglycerides 141 Cholesterol 175 LDL Cholesterol Direct 71 HDL Cholesterol 37 Lipase Urine HCG, Qual Alcohol, Quantitative < 10 05/12/17 09:21 WBC RBC Hgb Hct MCV MCH MCHC RDW Plt Count MPV Neut % (Auto) Lymph % (Auto) [place] % (Auto) Eos % (Auto) Baso % (Auto) Neut # (Auto) Lymph # (Auto) [place] # (Auto) Eos # (Auto) Baso # (Auto) PT INR APTT Sodium 142 Potassium 3.9 Chloride 110 H Carbon Dioxide 21 L Anion Gap 15 BUN 23 H Creatinine 0.9 Est GFR ( Amer) > 60 Est GFR (Non-Af Amer) > 60 Random Glucose 81 Calcium 7.9 L Total Bilirubin 0.4 AST 122 H D ALT 58 H D Alkaline Phosphatase 156 H D Total Protein 7.4 Albumin 3.0 L Globulin 4.3 H Albumin/Globulin Ratio 0.7 L Triglycerides Cholesterol LDL Cholesterol Direct HDL Cholesterol Lipase Urine HCG, Qual Alcohol, Quantitative Assessment & Plan - Assessment and Plan (Free Text) Assessment: Yanci Fletcher is a 36F w/ hx of lupus, seizures, HTN who presents with abd pain. Abd U/S revealed normal CBD, pancreas, + cholelithiasis Abd pain likely 2/2 gastritis vs biliary colic Cholelithiasis Elevated Lipase Transaminema etiology likely medication vesus lupus Chronic constipation Plan: -will get an MRCP to r/o CBD filling defects -will decide on ERCP after MRI -can start clears from GI standpoint -start in miralax BID -trend LFTs -continue protonix 40mg daily -recommend f/u with primary GI as an outpt at [place] -will follow D/w Dr. Bueno <Jocelyn Bueno - Last Filed: 05/12/17 15:34> Meds - Medications Medications: Current Medications Enoxaparin Sodium (Lovenox) 40 mg SC DAILY [facility] Last Admin: 05/12/17 10:38 Dose: Not Given Hydromorphone HCl (Dilaudid) 0.5 mg IVP Q6H PRN PRN Reason: Pain, severe (8-10) Last Admin: 05/12/17 01:14 Dose: 0.5 mg Hydroxychloroquine Sulfate (Plaquenil) 200 mg PO DAILY [facility] PRN Reason: Protocol Last Admin: 05/12/17 10:52 Dose: 200 mg Sodium Chloride (Sodium Chloride 0.45%) 1,000 mls @ 200 mls/hr IV .Q5H [facility] Last Admin: 05/12/17 01:23 Dose: 200 mls/hr Ketorolac Tromethamine (Toradol) 15 mg IV Q6 PRN PRN Reason: Pain, moderate (4-7) Levetiracetam (Keppra) 500 mg PO TID [facility] Last Admin: 05/12/17 13:50 Dose: Not Given Lisinopril (Zestril) 10 mg PO DAILY [facility] Last Admin: 05/12/17 10:40 Dose: 10 mg Methotrexate (Methotrexate) 10 mg PO QWK [facility] Ondansetron HCl (Zofran Inj) 4 mg IVP Q6 PRN PRN Reason: Nausea/Vomiting Pantoprazole Sodium (Protonix Inj) 40 mg IVP DAILY [facility] Last Admin: 05/12/17 13:50 Dose: Not Given Pneumococcal Polyvalent Vaccine (Pneumovax 23 Vaccine) 0.5 ml IM .ONCE ONE Stop: 05/15/17 10:01 Polyethylene Glycol (Miralax) 17 gm PO BID [facility] Last Admin: 05/12/17 13:45 Dose: Not Given Results - Vital Signs Recent Vital Signs: Last Vital Signs Temp 97.9 F 05/12/17 08:04 Pulse 91 H 05/12/17 08:04 Resp 20 05/12/17 08:04 BP 122/84 05/12/17 08:04 Pulse Ox 96 05/12/17 08:04 - Labs Result Diagrams: 05/12/17 08:27 05/12/17 09:21 Labs: Laboratory Results - last 24 hr 05/11/17 05/11/17 05/11/17 21:55 21:55 22:43 WBC 5.2 RBC 3.70 L Hgb 10.2 L Hct 31.1 L MCV 84.1 MCH 27.7 MCHC 32.9 L RDW 13.8 Plt Count 266 MPV 8.6 Neut % (Auto) 72.8 Lymph % (Auto) 19.[address] [place] % (Auto) 7.5 Eos % (Auto) 0.2 Baso % (Auto) 0.1 Neut # (Auto) 3.8 Lymph # (Auto) 1.0 [place] # (Auto) 0.4 Eos # (Auto) 0.0 Baso # (Auto) 0.0 PT INR APTT Sodium 137 Potassium 4.4 Chloride 104 Carbon Dioxide 24 Anion Gap 14 BUN 28 H Creatinine 1.0 Est GFR ( Amer) > 60 Est GFR (Non-Af Amer) > 60 Random Glucose 108 H Calcium 8.8 Total Bilirubin 0.4 AST 52 H ALT 36 Alkaline Phosphatase 124 Total Protein 8.7 H Albumin 3.6 Globulin 5.1 H Albumin/Globulin Ratio 0.7 L Triglycerides Cholesterol LDL Cholesterol Direct HDL Cholesterol Lipase 730 H Urine HCG, Qual Negative Alcohol, Quantitative 05/12/17 05/12/17 05/12/17 00:58 08:27 08:27 WBC 3.8 L RBC 3.59 L Hgb 10.1 L Hct 30.4 L MCV 84.6 MCH 28.0 MCHC 33.1 RDW 13.6 Plt Count 216 MPV 8.3 Neut % (Auto) 62.2 Lymph % (Auto) 27.6 [place] % (Auto) 9.3 Eos % (Auto) 0.6 Baso % (Auto) 0.3 Neut # (Auto) 2.3 Lymph # (Auto) 1.0 [place] # (Auto) 0.4 Eos # (Auto) 0.0 Baso # (Auto) 0.0 PT 10.8 INR 1.0 APTT 24 Sodium Potassium Chloride Carbon Dioxide Anion Gap BUN Creatinine Est GFR ( Amer) Est GFR (Non-Af Amer) Random Glucose Calcium Total Bilirubin AST ALT Alkaline Phosphatase Total Protein Albumin Globulin Albumin/Globulin Ratio Triglycerides 141 Cholesterol 175 LDL Cholesterol Direct 71 HDL Cholesterol 37 Lipase Urine HCG, Qual Alcohol, Quantitative < 10 03/26/18 09:21 WBC RBC Hgb Hct MCV MCH MCHC RDW Plt Count MPV Neut % (Auto) Lymph % (Auto) [place] % (Auto) Eos % (Auto) Baso % (Auto) Neut # (Auto) Lymph # (Auto) [place] # (Auto) Eos # (Auto) Baso # (Auto) PT INR APTT Sodium 142 Potassium 3.9 Chloride 110 H Carbon Dioxide 21 L Anion Gap 15 BUN 23 H Creatinine 0.9 Est GFR ( Amer) > 60 Est GFR (Non-Af Amer) > 60 Random Glucose 81 Calcium 7.9 L Total Bilirubin 0.4 AST 122 H D ALT 58 H D Alkaline Phosphatase 156 H D Total Protein 7.4 Albumin 3.0 L Globulin 4.3 H Albumin/Globulin Ratio 0.7 L Triglycerides Cholesterol LDL Cholesterol Direct HDL Cholesterol Lipase Urine HCG, Qual Alcohol, Quantitative Attending/Attestation - Attestation I have personally seen and examined this patient.: Yes I have fully participated in the care of the patient.: Yes I have reviewed all pertinent clinical information: Yes Notes (Text): 05/12/17 15:32 Patient seen at bedside on rounds. This is a 36F w/ hx of lupus, seizures, HTN who presents with abdominal pain. Abd U/S revealed normal CBD, pancreas, with cholelithiasis and slightly elevated lipase. Had EGD 3 weeks ago at [place] showing gastritis biopsies unknown. Pain has been similar to previous episodes. scheduled for OR for lap nelson on friday. No biliary dilatation on sonogram but will get MRCP. Clear liquid diet and stool softeners for chronic constipation. Will follow
[2017-05-12] MEDS: POLYETHYLENE GLYCOL 3350 17 GM/Dose PACKET PO SCH ×2 (13:45→17:48)
[2017-05-12] MEDS ORDERED: Gadodiamide 287 MG/ML VIAL (15ML) IV ONE (13:54)
--- NOTE | 2017-05-12 14:20 | CP.PCM.HP ---
Past Patient History - Infectious Disease Hx of Infectious Diseases: None - Past Medical History & Family History Past Medical History?: Yes - Past Social History Smoking Status: Never Smoked - CARDIAC Hx Hypertension: Yes - PULMONARY Hx Respiratory Disorders: No - NEUROLOGICAL Hx Neurological Disorder: Yes Hx Seizures: Yes (10/2016 last seizure) - HEENT Hx HEENT Problems: No - RENAL Hx Chronic Kidney Disease: No - ENDOCRINE/METABOLIC Hx Endocrine Disorders: Yes Hx Systemic Lupus Erythematosus: Yes - HEMATOLOGICAL/ONCOLOGICAL Hx Blood Disorders: No - INTEGUMENTARY Hx Dermatological Problems: No - MUSCULOSKELETAL/RHEUMATOLOGICAL Hx Falls: No - GASTROINTESTINAL Hx Gastrointestinal Disorders: Yes Hx Gall Bladder Disease: Yes (Gallstones) - GENITOURINARY/GYNECOLOGICAL Hx Genitourinary Disorders: No - PSYCHIATRIC Hx Substance Use: No - SURGICAL HISTORY Hx Surgeries: No - ANESTHESIA Hx Anesthesia: No Hx Anesthesia Reactions: No Hx Malignant Hyperthermia: No Has any member of the family had a problem w/ anesthesia?: No Meds Allergies/Adverse Reactions: Allergies Allergy/AdvReac Type Severity Reaction Status Date / Time No Known Allergies Allergy Verified 05/11/17 21:35 Physical Exam - Constitutional Appears: Well - Head Exam Head Exam: ATRAUMATIC, NORMAL INSPECTION, NORMOCEPHALIC - Eye Exam Eye Exam: EOMI, Normal appearance, PERRL Pupil Exam: NORMAL ACCOMODATION, PERRL - ENT Exam ENT Exam: Mucous Membranes Moist, Normal Exam - Neck Exam Neck exam: Positive for: Normal Inspection - Respiratory Exam Respiratory Exam: Decreased Breath Sounds - Cardiovascular Exam Cardiovascular Exam: REGULAR RHYTHM, +S1, +S2 - GI/Abdominal Exam GI & Abdominal Exam: Diminished Bowel Sounds, Soft - Rectal Exam Rectal Exam: Deferred Results - Vital Signs Recent Vital Signs: Last Vital Signs Temp 97.9 F 05/12/17 08:04 Pulse 91 H 05/12/17 08:04 Resp 20 05/12/17 08:04 BP 122/84 05/12/17 08:04 Pulse Ox 96 05/12/17 08:04 - Labs Result Diagrams: 05/12/17 08:27 05/12/17 09:21 Labs: Laboratory Results - last 24 hr 05/11/17 05/11/17 05/11/17 21:55 21:55 22:43 WBC 5.2 RBC 3.70 L Hgb 10.2 L Hct 31.1 L MCV 84.1 MCH 27.7 MCHC 32.9 L RDW 13.8 Plt Count 266 MPV 8.6 Neut % (Auto) 72.8 Lymph % (Auto) 19.4 L [place] % (Auto) 7.5 Eos % (Auto) 0.2 Baso % (Auto) 0.1 Neut # (Auto) 3.8 Lymph # (Auto) 1.0 [place] # (Auto) 0.4 Eos # (Auto) 0.0 Baso # (Auto) 0.0 PT INR APTT Sodium 137 Potassium 4.4 Chloride 104 Carbon Dioxide 24 Anion Gap 14 BUN 28 H Creatinine 1.0 Est GFR ( Amer) > 60 Est GFR (Non-Af Amer) > 60 Random Glucose 108 H Calcium 8.8 Total Bilirubin 0.4 AST 52 H ALT 36 Alkaline Phosphatase 124 Total Protein 8.7 H Albumin 3.6 Globulin 5.1 H Albumin/Globulin Ratio 0.7 L Triglycerides Cholesterol LDL Cholesterol Direct HDL Cholesterol Lipase 730 H Urine HCG, Qual Negative Alcohol, Quantitative 05/12/17 05/12/17 05/12/17 00:58 08:27 08:27 WBC 3.8 L RBC 3.59 L Hgb 10.1 L Hct 30.4 L MCV 84.6 MCH 28.0 MCHC 33.1 RDW 13.6 Plt Count 216 MPV 8.3 Neut % (Auto) 62.2 Lymph % (Auto) 27.6 [place] % (Auto) 9.3 Eos % (Auto) 0.6 Baso % (Auto) 0.3 Neut # (Auto) 2.3 Lymph # (Auto) 1.0 [place] # (Auto) 0.4 Eos # (Auto) 0.0 Baso # (Auto) 0.0 PT 10.8 INR 1.0 APTT 24 Sodium Potassium Chloride Carbon Dioxide Anion Gap BUN Creatinine Est GFR ( Amer) Est GFR (Non-Af Amer) Random Glucose Calcium Total Bilirubin AST ALT Alkaline Phosphatase Total Protein Albumin Globulin Albumin/Globulin Ratio Triglycerides 141 Cholesterol 175 LDL Cholesterol Direct 71 HDL Cholesterol 37 Lipase Urine HCG, Qual Alcohol, Quantitative < 10 05/12/17 09:21 WBC RBC Hgb Hct MCV MCH MCHC RDW Plt Count MPV Neut % (Auto) Lymph % (Auto) [place] % (Auto) Eos % (Auto) Baso % (Auto) Neut # (Auto) Lymph # (Auto) [place] # (Auto) Eos # (Auto) Baso # (Auto) PT INR APTT Sodium 142 Potassium 3.9 Chloride 110 H Carbon Dioxide 21 L Anion Gap 15 BUN 23 H Creatinine 0.9 Est GFR ( Amer) > 60 Est GFR (Non-Af Amer) > 60 Random Glucose 81 Calcium 7.9 L Total Bilirubin 0.4 AST 122 H D ALT 58 H D Alkaline Phosphatase 156 H D Total Protein 7.4 Albumin 3.0 L Globulin 4.3 H Albumin/Globulin Ratio 0.7 L Triglycerides Cholesterol LDL Cholesterol Direct HDL Cholesterol Lipase Urine HCG, Qual Alcohol, Quantitative
--- NOTE | 2017-05-12 15:18 | CP.PCM.PN ---
Subjective - Date & Time of Evaluation Date of Evaluation: 05/12/17 Time of Evaluation: 08:00 - Subjective Subjective: Surgery: Dr. Edward Pt seen and examined. No acute overnight events. States she feels better this morning but pain is still present. Denies N/V, F/C. Objective - Vital Signs/Intake and Output Vital Signs (last 24 hours): Temp Pulse Resp BP Pulse Ox 97.9 F 91 H 20 122/84 96 05/12/17 08:04 05/12/17 08:04 05/12/17 08:04 05/12/17 08:04 05/12/17 08:04 Intake and Output: 05/12/17 05/12/17 06:59 18:59 Intake Total 1999 Balance 1999 - Medications Medications: Current Medications Enoxaparin Sodium (Lovenox) 40 mg SC DAILY [facility] Last Admin: 05/12/17 10:38 Dose: Not Given Hydromorphone HCl (Dilaudid) 0.5 mg IVP Q6H PRN PRN Reason: Pain, severe (8-10) Last Admin: 05/12/17 01:14 Dose: 0.5 mg Hydroxychloroquine Sulfate (Plaquenil) 200 mg PO DAILY [facility] PRN Reason: Protocol Last Admin: 05/12/17 10:52 Dose: 200 mg Sodium Chloride (Sodium Chloride 0.45%) 1,000 mls @ 200 mls/hr IV .Q5H [facility] Last Admin: 05/12/17 01:23 Dose: 200 mls/hr Ketorolac Tromethamine (Toradol) 15 mg IV Q6 PRN PRN Reason: Pain, moderate (4-7) Levetiracetam (Keppra) 500 mg PO TID [facility] Last Admin: 05/12/17 13:50 Dose: Not Given Lisinopril (Zestril) 10 mg PO DAILY [facility] Last Admin: 05/12/17 10:40 Dose: 10 mg Methotrexate (Methotrexate) 10 mg PO QWK [facility] Ondansetron HCl (Zofran Inj) 4 mg IVP Q6 PRN PRN Reason: Nausea/Vomiting Pantoprazole Sodium (Protonix Inj) 40 mg IVP DAILY [facility] Last Admin: 05/12/17 13:50 Dose: Not Given Pneumococcal Polyvalent Vaccine (Pneumovax 23 Vaccine) 0.5 ml IM .ONCE ONE Stop: 05/15/17 10:01 Polyethylene Glycol (Miralax) 17 gm PO BID [facility] Last Admin: 05/12/17 13:45 Dose: Not Given - Labs Labs: 05/12/17 08:27 05/12/17 09:21 PT 10.8 SECONDS (9.7-12.2) 05/12/17 08:27 INR 1.0 05/12/17 08:27 APTT 24 SECONDS (21-34) 05/12/17 08:27 - Constitutional Appears: Well, No Acute Distress - Head Exam Head Exam: ATRAUMATIC, NORMOCEPHALIC - Eye Exam Eye Exam: Normal appearance - ENT Exam ENT Exam: Mucous Membranes Moist - Respiratory Exam Respiratory Exam: NORMAL BREATHING PATTERN - Cardiovascular Exam Cardiovascular Exam: RRR - GI/Abdominal Exam GI & Abdominal Exam: Soft, Tenderness (epigastric/RUQ ). absent: Distended - Neurological Exam Neurological Exam: Alert, Awake, Oriented x3 - Skin Skin Exam: Dry, Warm Assessment and Plan - Assessment and Plan (Free Text) Assessment: 36F with gallstone pancreatitis Plan: - plan for OR on Friday for lap nelson - f/u MRCP ordered by GI - medically optimize for OR - d/w Dr. Edward who agrees with above Loren, PGY-3
--- NOTE | 2017-05-12 18:19 | CP.PCM.HP ---
History of Present Illness - History of Present Illness History of Present Illness: Patient is a 36 year old female with PMHx lupus, HTN, seizures who presented to the ED on 05/11/17 with complaint of epigastric/ RUQ abdominal pain. Patient was first seen in our ED on 04/12/17 with similar complaint and diagnosed with gallstones by abdominal US/ CT. She was discharged at that time to follow up with Dr. Fortune, her PMD. Patient returned on 05/04/17 to the ED with complaint of diffuse pain. Patient advised to follow up with her PMD and hand outside cutter at that time. Patient now returns to the ED with complaint of persistent abdominal pain. Patient states she saw Dr. Edward as outpatient. Patient states she was advised to return to hospital due to persistent nature of pain. Patient currently NPO as per surgical team and states her pain has decreased although she admits to nausea. Present on Admission - Present on Admission Any Indicators Present on Admission: No Past Patient History - Infectious Disease Hx of Infectious Diseases: None - Past Medical History & Family History Past Medical History?: Yes - Past Social History Smoking Status: Never Smoked - CARDIAC Hx Hypertension: Yes - PULMONARY Hx Respiratory Disorders: No - NEUROLOGICAL Hx Neurological Disorder: Yes Hx Seizures: Yes (10/2016 last seizure) - HEENT Hx HEENT Problems: No - RENAL Hx Chronic Kidney Disease: No - ENDOCRINE/METABOLIC Hx Endocrine Disorders: Yes Hx Systemic Lupus Erythematosus: Yes - HEMATOLOGICAL/ONCOLOGICAL Hx Blood Disorders: No - INTEGUMENTARY Hx Dermatological Problems: No - MUSCULOSKELETAL/RHEUMATOLOGICAL Hx Falls: No - GASTROINTESTINAL Hx Gastrointestinal Disorders: Yes Hx Gall Bladder Disease: Yes (Gallstones) - GENITOURINARY/GYNECOLOGICAL Hx Genitourinary Disorders: No - PSYCHIATRIC Hx Substance Use: No - SURGICAL HISTORY Hx Surgeries: No - ANESTHESIA Hx Anesthesia: No Hx Anesthesia Reactions: No Hx Malignant Hyperthermia: No Has any member of the family had a problem w/ anesthesia?: No Meds Home Medications: Home Medication List Medication Instructions Recorded Confirmed Type oxyCODONE/Acetaminophen [Percocet 1 tab PO Q4H PRN #20 tab 05/15/17 Rx 5/325 mg Tab] Allergies/Adverse Reactions: Allergies Allergy/AdvReac Type Severity Reaction Status Date / Time No Known Allergies Allergy Verified 05/11/17 21:35 Results - Vital Signs Recent Vital Signs: Last Vital Signs Temp 98.1 F 05/12/17 15:00 Pulse 78 05/12/17 15:00 Resp 20 05/12/17 15:00 BP 122/80 05/12/17 15:00 Pulse Ox 97 05/12/17 15:00 - Labs Result Diagrams: 05/14/17 07:20 05/14/17 07:20 Labs: Laboratory Results - last 24 hr 05/11/17 05/11/17 05/11/17 21:55 21:55 22:43 WBC 5.2 RBC 3.70 L Hgb 10.2 L Hct 31.1 L MCV 84.1 MCH 27.7 MCHC 32.9 L RDW 13.8 Plt Count 266 MPV 8.6 Neut % (Auto) 72.8 Lymph % (Auto) 19.4 L [place] % (Auto) 7.5 Eos % (Auto) 0.2 Baso % (Auto) 0.1 Neut # (Auto) 3.8 Lymph # (Auto) 1.0 [place] # (Auto) 0.4 Eos # (Auto) 0.0 Baso # (Auto) 0.0 PT INR APTT Sodium 137 Potassium 4.4 Chloride 104 Carbon Dioxide 24 Anion Gap 14 BUN 28 H Creatinine 1.0 Est GFR ( Amer) > 60 Est GFR (Non-Af Amer) > 60 Random Glucose 108 H Calcium 8.8 Total Bilirubin 0.4 AST 52 H ALT 36 Alkaline Phosphatase 124 Total Protein 8.7 H Albumin 3.6 Globulin 5.1 H Albumin/Globulin Ratio 0.7 L Triglycerides Cholesterol LDL Cholesterol Direct HDL Cholesterol Lipase 730 H Urine HCG, Qual Negative Alcohol, Quantitative 05/12/17 05/12/17 05/12/17 00:58 08:27 08:27 WBC 3.8 L RBC 3.59 L Hgb 10.1 L Hct 30.4 L MCV 84.6 MCH 28.0 MCHC 33.1 RDW 13.6 Plt Count 216 MPV 8.3 Neut % (Auto) 62.2 Lymph % (Auto) 27.6 [place] % (Auto) 9.3 Eos % (Auto) 0.6 Baso % (Auto) 0.3 Neut # (Auto) 2.3 Lymph # (Auto) 1.0 [place] # (Auto) 0.4 Eos # (Auto) 0.0 Baso # (Auto) 0.0 PT 10.8 INR 1.0 APTT 24 Sodium Potassium Chloride Carbon Dioxide Anion Gap BUN Creatinine Est GFR ( Amer) Est GFR (Non-Af Amer) Random Glucose Calcium Total Bilirubin AST ALT Alkaline Phosphatase Total Protein Albumin Globulin Albumin/Globulin Ratio Triglycerides 141 Cholesterol 175 LDL Cholesterol Direct 71 HDL Cholesterol 37 Lipase Urine HCG, Qual Alcohol, Quantitative < 10 05/12/17 09:21 WBC RBC Hgb Hct MCV MCH MCHC RDW Plt Count MPV Neut % (Auto) Lymph % (Auto) [place] % (Auto) Eos % (Auto) Baso % (Auto) Neut # (Auto) Lymph # (Auto) [place] # (Auto) Eos # (Auto) Baso # (Auto) PT INR APTT Sodium 142 Potassium 3.9 Chloride 110 H Carbon Dioxide 21 L Anion Gap 15 BUN 23 H Creatinine 0.9 Est GFR ( Amer) > 60 Est GFR (Non-Af Amer) > 60 Random Glucose 81 Calcium 7.9 L Total Bilirubin 0.4 AST 122 H D ALT 58 H D Alkaline Phosphatase 156 H D Total Protein 7.4 Albumin 3.0 L Globulin 4.3 H Albumin/Globulin Ratio 0.7 L Triglycerides Cholesterol LDL Cholesterol Direct HDL Cholesterol Lipase Urine HCG, Qual Alcohol, Quantitative Assessment & Plan (1) Gallstone pancreatitis Status: Acute (2) Abdominal pain Status: Acute (3) Arthralgia Status: Acute (4) Diarrhea Status: Acute (5) Lupus (systemic lupus erythematosus) Status: Acute (6) Myalgia Status: Acute (7) Nausea Status: Acute (8) Vomiting Status: Acute - Assessment and Plan (Free Text) Plan: surg on board meds and labs reviewed [place] mx as ordered gi dvt prophylaxis
--- NOTE | 2017-05-12 18:42 | CP.PCM.CON ---
Past Patient History - Infectious Disease Hx of Infectious Diseases: None - Past Medical History & Family History Past Medical History?: Yes - Past Social History Smoking Status: Never Smoked - CARDIAC Hx Hypertension: Yes - PULMONARY Hx Respiratory Disorders: No - NEUROLOGICAL Hx Neurological Disorder: Yes Hx Seizures: Yes (10/2016 last seizure) - HEENT Hx HEENT Problems: No - RENAL Hx Chronic Kidney Disease: No - ENDOCRINE/METABOLIC Hx Endocrine Disorders: Yes Hx Systemic Lupus Erythematosus: Yes - HEMATOLOGICAL/ONCOLOGICAL Hx Blood Disorders: No - INTEGUMENTARY Hx Dermatological Problems: No - MUSCULOSKELETAL/RHEUMATOLOGICAL Hx Falls: No - GASTROINTESTINAL Hx Gastrointestinal Disorders: Yes Hx Gall Bladder Disease: Yes (Gallstones) - GENITOURINARY/GYNECOLOGICAL Hx Genitourinary Disorders: No - PSYCHIATRIC Hx Substance Use: No - SURGICAL HISTORY Hx Surgeries: No - ANESTHESIA Hx Anesthesia: No Hx Anesthesia Reactions: No Hx Malignant Hyperthermia: No Has any member of the family had a problem w/ anesthesia?: No Meds Allergies/Adverse Reactions: Allergies Allergy/AdvReac Type Severity Reaction Status Date / Time No Known Allergies Allergy Verified 05/11/17 21:35 - Medications Medications: Current Medications Enoxaparin Sodium (Lovenox) 40 mg SC DAILY [facility] Last Admin: 05/12/17 10:38 Dose: Not Given Hydromorphone HCl (Dilaudid) 0.5 mg IVP Q6H PRN PRN Reason: Pain, severe (8-10) Last Admin: 05/12/17 01:14 Dose: 0.5 mg Hydroxychloroquine Sulfate (Plaquenil) 200 mg PO DAILY [facility] PRN Reason: Protocol Last Admin: 05/12/17 10:52 Dose: 200 mg Sodium Chloride (Sodium Chloride 0.45%) 1,000 mls @ 200 mls/hr IV .Q5H [facility] Last Admin: 05/12/17 01:23 Dose: 200 mls/hr Ketorolac Tromethamine (Toradol) 15 mg IV Q6 PRN PRN Reason: Pain, moderate (4-7) Levetiracetam (Keppra) 500 mg PO TID [facility] Last Admin: 05/12/17 17:42 Dose: 500 mg Lisinopril (Zestril) 10 mg PO DAILY [facility] Last Admin: 05/12/17 10:40 Dose: 10 mg Methotrexate (Methotrexate) 10 mg PO QWK [facility] Ondansetron HCl (Zofran Inj) 4 mg IVP Q6 PRN PRN Reason: Nausea/Vomiting Pantoprazole Sodium (Protonix Inj) 40 mg IVP DAILY [facility] Last Admin: 05/12/17 13:50 Dose: Not Given Pneumococcal Polyvalent Vaccine (Pneumovax 23 Vaccine) 0.5 ml IM .ONCE ONE Stop: 05/15/17 10:01 Polyethylene Glycol (Miralax) 17 gm PO BID [facility] Last Admin: 05/12/17 13:45 Dose: Not Given Results - Vital Signs Recent Vital Signs: Last Vital Signs Temp 98.1 F 05/12/17 15:00 Pulse 78 05/12/17 15:00 Resp 20 05/12/17 15:00 BP 122/80 05/12/17 15:00 Pulse Ox 97 05/12/17 15:00 - Labs Result Diagrams: 05/12/17 08:27 05/12/17 09:21 Labs: Laboratory Results - last 24 hr 05/11/17 05/11/17 05/11/17 21:55 21:55 22:43 WBC 5.2 RBC 3.70 L Hgb 10.2 L Hct 31.1 L MCV 84.1 MCH 27.7 MCHC 32.9 L RDW 13.8 Plt Count 266 MPV 8.6 Neut % (Auto) 72.8 Lymph % (Auto) 19.4 L [place] % (Auto) 7.5 Eos % (Auto) 0.2 Baso % (Auto) 0.1 Neut # (Auto) 3.8 Lymph # (Auto) 1.0 [place] # (Auto) 0.4 Eos # (Auto) 0.0 Baso # (Auto) 0.0 PT INR APTT Sodium 137 Potassium 4.4 Chloride 104 Carbon Dioxide 24 Anion Gap 14 BUN 28 H Creatinine 1.0 Est GFR ( Amer) > 60 Est GFR (Non-Af Amer) > 60 Random Glucose 108 H Calcium 8.8 Total Bilirubin 0.4 AST 52 H ALT 36 Alkaline Phosphatase 124 Total Protein 8.7 H Albumin 3.6 Globulin 5.1 H Albumin/Globulin Ratio 0.7 L Triglycerides Cholesterol LDL Cholesterol Direct HDL Cholesterol Lipase 730 H Urine HCG, Qual Negative Alcohol, Quantitative 05/12/17 05/12/17 05/12/17 00:58 08:27 08:27 WBC 3.8 L RBC 3.59 L Hgb 10.1 L Hct 30.4 L MCV 84.6 MCH 28.0 MCHC 33.1 RDW 13.6 Plt Count 216 MPV 8.3 Neut % (Auto) 62.2 Lymph % (Auto) 27.6 [place] % (Auto) 9.3 Eos % (Auto) 0.6 Baso % (Auto) 0.3 Neut # (Auto) 2.3 Lymph # (Auto) 1.0 [place] # (Auto) 0.4 Eos # (Auto) 0.0 Baso # (Auto) 0.0 PT 10.8 INR 1.0 APTT 24 Sodium Potassium Chloride Carbon Dioxide Anion Gap BUN Creatinine Est GFR ( Amer) Est GFR (Non-Af Amer) Random Glucose Calcium Total Bilirubin AST ALT Alkaline Phosphatase Total Protein Albumin Globulin Albumin/Globulin Ratio Triglycerides 141 Cholesterol 175 LDL Cholesterol Direct 71 HDL Cholesterol 37 Lipase Urine HCG, Qual Alcohol, Quantitative < 10 05/12/17 09:21 WBC RBC Hgb Hct MCV MCH MCHC RDW Plt Count MPV Neut % (Auto) Lymph % (Auto) [place] % (Auto) Eos % (Auto) Baso % (Auto) Neut # (Auto) Lymph # (Auto) [place] # (Auto) Eos # (Auto) Baso # (Auto) PT INR APTT Sodium 142 Potassium 3.9 Chloride 110 H Carbon Dioxide 21 L Anion Gap 15 BUN 23 H Creatinine 0.9 Est GFR ( Amer) > 60 Est GFR (Non-Af Amer) > 60 Random Glucose 81 Calcium 7.9 L Total Bilirubin 0.4 AST 122 H D ALT 58 H D Alkaline Phosphatase 156 H D Total Protein 7.4 Albumin 3.0 L Globulin 4.3 H Albumin/Globulin Ratio 0.7 L Triglycerides Cholesterol LDL Cholesterol Direct HDL Cholesterol Lipase Urine HCG, Qual Alcohol, Quantitative
[2017-05-13] MEDS: Sodium Chloride 0.45% 1,000 ML IV SCH ×4 (01:31→21:15)
[2017-05-13 07:55] LABS: BASO % 0.5 % (0.0-2.0); EOS # 0.1 K/uL (0.0-0.7); EOS % 2.2 % (0.0-4.0); HEMOGLOBIN 9.6 g/dL (11.0-16.0); LYMPH # 0.8 K/uL (1.0-4.3); MEAN CELL VOLUME 84.4 fL (81.0-99.0); MEAN CORPUSCULAR HEMOGLOBIN 28.5 pg (27.0-31.0); MEAN CORPUSCULAR HGB CONC 33.8 g/dL (33.0-37.0); MEAN PLATELET VOLUME 8.6 fL (7.2-11.7); MONO # 0.3 K/uL (0.0-0.8); MONO % 9.4 % (0.0-10.0); NEUT % 62.9 % (50.0-75.0); RBC 3.38 Mil/uL (3.80-5.20); RED CELL DISTRIBUTION WIDTH 13.8 % (11.5-14.5); WHITE BLOOD COUNT 3.2 K/uL (4.8-10.8)
[2017-05-13 08:10] LABS: ALB/GLOB RATIO 0.7 (1.0-2.1); ALBUMIN 2.7 g/dL (3.5-5.0); ALT/SGPT 35 U/L (9-52); AST/SGOT 46 U/L (14-36); BLOOD UREA NITROGEN 8 mg/dL (7-17); CALCIUM 7.9 mg/dl (8.6-10.4); GFR AFRICAN-AMERICAN > 60; GFR NON-AFRICAN AMERICAN > 60; LIPASE 345 U/L (23-300)
--- NOTE | 2017-05-13 09:16 | CP.PCM.PN ---
<Marie Horvath - Last Filed: 05/13/17 09:17> Subjective - Date & Time of Evaluation Date of Evaluation: 05/13/17 Time of Evaluation: 07:10 - Subjective Subjective: PGY4 GI Follow-up Pt seen and examined bedside tolerating diet last BM was friday Mild abd pain denies any nausea, vomiting or diarrhea ROS: 10 point ROS conducted, neg other than above Objective - Vital Signs/Intake and Output Vital Signs (last 24 hours): Temp Pulse Resp BP Pulse Ox 98.1 F 85 20 123/82 97 05/13/17 07:38 05/13/17 07:38 05/13/17 07:38 05/13/17 07:38 05/13/17 07:38 Intake and Output: 05/13/17 05/13/17 06:59 18:59 Intake Total 3750 Balance 3750 - Medications Medications: Current Medications Enoxaparin Sodium (Lovenox) 40 mg SC DAILY [facility] Last Admin: 05/12/17 10:38 Dose: Not Given Hydromorphone HCl (Dilaudid) 0.5 mg IVP Q6H PRN PRN Reason: Pain, severe (8-10) Last Admin: 05/12/17 01:14 Dose: 0.5 mg Hydroxychloroquine Sulfate (Plaquenil) 200 mg PO DAILY [facility] PRN Reason: Protocol Last Admin: 05/12/17 10:52 Dose: 200 mg Sodium Chloride (Sodium Chloride 0.45%) 1,000 mls @ 200 mls/hr IV .Q5H [facility] Last Admin: 05/13/17 06:46 Dose: 200 mls/hr Ketorolac Tromethamine (Toradol) 15 mg IV Q6 PRN PRN Reason: Pain, moderate (4-7) Levetiracetam (Keppra) 500 mg PO TID [facility] Last Admin: 05/12/17 17:42 Dose: 500 mg Lisinopril (Zestril) 10 mg PO DAILY [facility] Last Admin: 05/12/17 10:40 Dose: 10 mg Methotrexate (Methotrexate) 10 mg PO QWK [facility] Ondansetron HCl (Zofran Inj) 4 mg IVP Q6 PRN PRN Reason: Nausea/Vomiting Pantoprazole Sodium (Protonix Inj) 40 mg IVP DAILY [facility] Last Admin: 05/12/17 13:50 Dose: Not Given Pneumococcal Polyvalent Vaccine (Pneumovax 23 Vaccine) 0.5 ml IM .ONCE ONE Stop: 05/15/17 10:01 Polyethylene Glycol (Miralax) 17 gm PO BID [facility] Last Admin: 05/12/17 13:45 Dose: Not Given - Labs Labs: 05/13/17 07:37 05/13/17 07:37 PT 10.8 SECONDS (9.7-12.2) 05/12/17 08:27 INR 1.0 05/12/17 08:27 APTT 24 SECONDS (21-34) 05/12/17 08:27 - Constitutional Appears: Well, No Acute Distress - Head Exam Head Exam: ATRAUMATIC, NORMOCEPHALIC - Eye Exam Eye Exam: EOMI, Normal appearance - ENT Exam ENT Exam: Mucous Membranes Moist, Normal Exam - Neck Exam Neck Exam: Normal Inspection - Respiratory Exam Respiratory Exam: Clear to Ausculation Bilateral, NORMAL BREATHING PATTERN. absent: Rales, Rhonchi, Wheezes, Respiratory Distress - Cardiovascular Exam Cardiovascular Exam: REGULAR RHYTHM, +S1, +S2 - GI/Abdominal Exam GI & Abdominal Exam: Soft, Tenderness (epigastric), Normal Bowel Sounds. absent : Guarding, Rigid - Extremities Exam Extremities Exam: absent: Joint Swelling, Pedal Edema - Neurological Exam Neurological Exam: Alert, Awake, Oriented x3 - Psychiatric Exam Psychiatric exam: Normal Affect, Normal Mood - Skin Skin Exam: Dry, Intact, Normal Color, Warm Assessment and Plan - Assessment and Plan (Free Text) Assessment: Yanci Fletcher is a 36F w/ hx of lupus, seizures, HTN who presents with abd pain. Abd U/S revealed normal CBD, pancreas, + cholelithiasis Abd pain likely 2/2 gastritis vs biliary colic Cholelithiasis Elevated Lipase Transaminema etiology likely medication versus lupus Chronic constipation Plan: -MRCP neg for filling defect -advance diet from GI standpoint -continue miralax BID, will add enemas -trend LFTs -continue protonix 40mg daily -recommend f/u with primary GI as an outpt at [place] - lap nelson planned for Fri05/14/17 -will sign off D/w Dr. Oliver <Riley Oliver Y - Last Filed: 05/13/17 09:23> Objective - Vital Signs/Intake and Output Vital Signs (last 24 hours): Temp Pulse Resp BP Pulse Ox 98.1 F 85 20 123/82 97 05/13/17 07:38 05/13/17 07:38 05/13/17 07:38 05/13/17 07:38 05/13/17 07:38 Intake and Output: 05/13/17 05/13/17 06:59 18:59 Intake Total 3750 Balance 3750 - Medications Medications: Current Medications Enoxaparin Sodium (Lovenox) 40 mg SC DAILY [facility] Last Admin: 05/12/17 10:38 Dose: Not Given Hydromorphone HCl (Dilaudid) 0.5 mg IVP Q6H PRN PRN Reason: Pain, severe (8-10) Last Admin: 05/12/17 01:14 Dose: 0.5 mg Hydroxychloroquine Sulfate (Plaquenil) 200 mg PO DAILY [facility] PRN Reason: Protocol Last Admin: 05/12/17 10:52 Dose: 200 mg Sodium Chloride (Sodium Chloride 0.45%) 1,000 mls @ 200 mls/hr IV .Q5H [facility] Last Admin: 05/13/17 06:46 Dose: 200 mls/hr Ketorolac Tromethamine (Toradol) 15 mg IV Q6 PRN PRN Reason: Pain, moderate (4-7) Levetiracetam (Keppra) 500 mg PO TID [facility] Last Admin: 05/12/17 17:42 Dose: 500 mg Lisinopril (Zestril) 10 mg PO DAILY [facility] Last Admin: 05/12/17 10:40 Dose: 10 mg Methotrexate (Methotrexate) 10 mg PO QWK [facility] Ondansetron HCl (Zofran Inj) 4 mg IVP Q6 PRN PRN Reason: Nausea/Vomiting Pantoprazole Sodium (Protonix Inj) 40 mg IVP DAILY [facility] Last Admin: 05/12/17 13:50 Dose: Not Given Pneumococcal Polyvalent Vaccine (Pneumovax 23 Vaccine) 0.5 ml IM .ONCE ONE Stop: 05/15/17 10:01 Polyethylene Glycol (Miralax) 17 gm PO BID [facility] Last Admin: 05/12/17 13:45 Dose: Not Given - Labs Labs: 05/13/17 07:37 05/13/17 07:37 PT 10.8 SECONDS (9.7-12.2) 05/12/17 08:27 INR 1.0 05/12/17 08:27 APTT 24 SECONDS (21-34) 05/12/17 08:27 Attending/Attestation - Attestation I have personally seen and examined this patient.: Yes I have fully participated in the care of the patient.: Yes I have reviewed all pertinent clinical information, including history, physical exam and plan: Yes Notes (Text): 05/13/17 09:21 I have seen and examined patient with GI fellow. No acute events overnight, she is seen resting in bed comfortably. She continues to endorse mild RUQ abdominal pain but denies nausea, vomiting, diarrhea, fever/chills. Tolerating PO liquids without difficulty. Review of vitals from today are normal. SLE HTN Seizure disorder Abdominal pain, transaminitis Gallstone pancreatitis - Liquid diet as tolerated - MRCP reviewed by me showing no choledocholithiasis, awaiting final read - LFTs trending down, continue to monitor - Follow up surgical recommendations regarding timing of potential cholecystectomy - Maintain bowel regimen to prevent constipation - No further planned GI interventions, will sign off case. Please reconsult as necessary, thank you.
--- NOTE | 2017-05-13 09:42 | CP.PCM.PN ---
<Baron Carlisle S - Last Filed: 05/13/17 15:13> Subjective - Date & Time of Evaluation Date of Evaluation: 05/13/17 Time of Evaluation: 09:40 - Subjective Subjective: Progress note for Dr. Horvath's Service Pt seen and examined at bedside. She is currently on a clear liquid diet which she is tolerating well; she denies vomiting. She continues to have abdominal pain focused in the RUQ. No acute complaints. Objective - Vital Signs/Intake and Output Vital Signs (last 24 hours): Temp Pulse Resp BP Pulse Ox 98.1 F 85 20 123/82 97 05/13/17 07:38 05/13/17 07:38 05/13/17 07:38 05/13/17 07:38 05/13/17 07:38 Intake and Output: 05/13/17 05/13/17 06:59 18:59 Intake Total 3750 Balance 3750 - Medications Medications: Current Medications Enoxaparin Sodium (Lovenox) 40 mg SC DAILY [facility] Last Admin: 05/12/17 10:38 Dose: Not Given Hydromorphone HCl (Dilaudid) 0.5 mg IVP Q6H PRN PRN Reason: Pain, severe (8-10) Last Admin: 05/12/17 01:14 Dose: 0.5 mg Hydroxychloroquine Sulfate (Plaquenil) 200 mg PO DAILY [facility] PRN Reason: Protocol Last Admin: 05/12/17 10:52 Dose: 200 mg Sodium Chloride (Sodium Chloride 0.45%) 1,000 mls @ 200 mls/hr IV .Q5H [facility] Last Admin: 05/13/17 06:46 Dose: 200 mls/hr Ketorolac Tromethamine (Toradol) 15 mg IV Q6 PRN PRN Reason: Pain, moderate (4-7) Levetiracetam (Keppra) 500 mg PO TID [facility] Last Admin: 05/12/17 17:42 Dose: 500 mg Lisinopril (Zestril) 10 mg PO DAILY [facility] Last Admin: 05/12/17 10:40 Dose: 10 mg Methotrexate (Methotrexate) 10 mg PO QWK [facility] Ondansetron HCl (Zofran Inj) 4 mg IVP Q6 PRN PRN Reason: Nausea/Vomiting Pantoprazole Sodium (Protonix Inj) 40 mg IVP DAILY [facility] Last Admin: 05/12/17 13:50 Dose: Not Given Pneumococcal Polyvalent Vaccine (Pneumovax 23 Vaccine) 0.5 ml IM .ONCE ONE Stop: 05/15/17 10:01 Polyethylene Glycol (Miralax) 17 gm PO BID [facility] Last Admin: 05/12/17 13:45 Dose: Not Given - Labs Labs: 05/13/17 07:37 05/13/17 07:37 PT 10.8 SECONDS (9.7-12.2) 05/12/17 08:27 INR 1.0 05/12/17 08:27 APTT 24 SECONDS (21-34) 05/12/17 08:27 - Constitutional Appears: No Acute Distress - Head Exam Head Exam: ATRAUMATIC, NORMOCEPHALIC - Eye Exam Eye Exam: EOMI, Normal appearance - ENT Exam ENT Exam: Mucous Membranes Moist - Respiratory Exam Respiratory Exam: Clear to Ausculation Bilateral, NORMAL BREATHING PATTERN - Cardiovascular Exam Cardiovascular Exam: REGULAR RHYTHM, +S1, +S2 - GI/Abdominal Exam GI & Abdominal Exam: Soft, Tenderness (RUQ and LUQ) - Extremities Exam Extremities Exam: absent: Pedal Edema, Tenderness - Neurological Exam Neurological Exam: Alert, Awake, Oriented x3 - Psychiatric Exam Psychiatric exam: Normal Affect, Normal Mood - Skin Skin Exam: Dry, Warm Assessment and Plan - Assessment and Plan (Free Text) Plan: Gallstone pancreatitis initial lipase 730; now 345 05/13 Abd US 05/11/17: cholelithiasis, no wall thickening or pericholecystic fluid. pancreas unremarkable as visualized GI, Dr. Bueno, consulted- help appreciated -MRCP neg for filling defect -advance diet from GI standpoint -continue miralax BID, will add enemas -trend LFTs -continue protonix 40mg daily -recommend f/u with primary GI as an outpt at [place] -lap nelson planned for Fri05/14/17 -will sign off Surgery, Dr. Edward, consulted- help appreciated -plan for OR on Friday for lap nelson AST/ALT 46/35 Alk Phos 113 MRCP done by GI 05/12- follow up official results Dilaudid 0.5mg IVP Q6hrs prn Toradol 15mg IV Q6hrs prn Zofran 4mg IVP q6hrs prn History Lupus continue home medication plaquenil 200mg PO daily continue methotrexate 10mg PO weekly (takes four 2.5mg tablets on Friday) prednisone listed in home medications only for lupus flares- not currently taking Consult placed to Dr. Green- follow up recs History seizures continue home medication keppra 500mg PO TID History HTN continue home medication lisinopril 10mg PO daily Prophylactic measure lovenox 40mg SC daily Protonix 40mg IV daily case discussed with Dr. Horvath all management as per Dr. Horvath <Dhaval Horvath - Last Filed: 05/15/17 18:35> Objective - Vital Signs/Intake and Output Vital Signs (last 24 hours): Temp Pulse Resp BP Pulse Ox 98.5 F 90 20 113/75 96 05/15/17 07:45 05/15/17 07:45 05/15/17 07:45 05/15/17 07:45 05/15/17 07:45 Intake and Output: 05/15/17 05/15/17 06:59 18:59 Intake Total 1790 1280 Balance 1790 1280 - Labs Labs: 05/14/17 07:20 05/14/17 07:20 PT 10.8 SECONDS (9.7-12.2) 05/12/17 08:27 INR 1.0 05/12/17 08:27 APTT 24 SECONDS (21-34) 05/12/17 08:27 Assessment and Plan (1) Gallstone pancreatitis Status: Acute (2) Abdominal pain Status: Acute (3) Arthralgia Status: Acute (4) Diarrhea Status: Acute (5) Lupus (systemic lupus erythematosus) Status: Acute (6) Myalgia Status: Acute (7) Nausea Status: Acute (8) Vomiting Status: Acute Attending/Attestation - Attestation I have personally seen and examined this patient.: Yes I have fully participated in the care of the patient.: Yes I have reviewed all pertinent clinical information, including history, physical exam and plan: Yes Notes (Text): 05/15/17 18:34 cse seen and d.w staff followup with sx for further followup mx
[2017-05-13] MEDS: Enoxaparin 40 mg Syringe SC SCH (10:33)
[2017-05-13] MEDS: POLYETHYLENE GLYCOL 3350 17 GM/Dose PACKET PO SCH ×2 (10:35→17:48)
--- NOTE | 2017-05-13 11:59 | CP.PCM.PN ---
Subjective - Date & Time of Evaluation Date of Evaluation: 05/13/17 Time of Evaluation: 07:00 - Subjective Subjective: Surgery progress note. Dr. Edward Pt seen and examined at bedside. No acute events overnight. No N/V/D. States that her abdominal pain is improving. No new complaints. Objective - Vital Signs/Intake and Output Vital Signs (last 24 hours): Temp Pulse Resp BP Pulse Ox 98.1 F 85 20 123/82 97 05/13/17 07:38 05/13/17 07:38 05/13/17 07:38 05/13/17 07:38 05/13/17 07:38 Intake and Output: 05/13/17 05/13/17 06:59 18:59 Intake Total 3750 Balance 3750 - Medications Medications: Current Medications Enoxaparin Sodium (Lovenox) 40 mg SC DAILY [facility] Last Admin: 05/13/17 10:33 Dose: 40 mg Hydromorphone HCl (Dilaudid) 0.5 mg IVP Q6H PRN PRN Reason: Pain, severe (8-10) Last Admin: 05/12/17 01:14 Dose: 0.5 mg Hydroxychloroquine Sulfate (Plaquenil) 200 mg PO DAILY [facility] PRN Reason: Protocol Last Admin: 05/13/17 10:32 Dose: 200 mg Sodium Chloride (Sodium Chloride 0.45%) 1,000 mls @ 200 mls/hr IV .Q5H [facility] Last Admin: 05/13/17 06:46 Dose: 200 mls/hr Ketorolac Tromethamine (Toradol) 15 mg IV Q6 PRN PRN Reason: Pain, moderate (4-7) Levetiracetam (Keppra) 500 mg PO TID [facility] Last Admin: 05/13/17 10:33 Dose: 500 mg Lisinopril (Zestril) 10 mg PO DAILY [facility] Last Admin: 05/13/17 10:33 Dose: 10 mg Methotrexate (Methotrexate) 10 mg PO QWK [facility] Ondansetron HCl (Zofran Inj) 4 mg IVP Q6 PRN PRN Reason: Nausea/Vomiting Pantoprazole Sodium (Protonix Inj) 40 mg IVP DAILY [facility] Last Admin: 05/13/17 10:32 Dose: 40 mg Pneumococcal Polyvalent Vaccine (Pneumovax 23 Vaccine) 0.5 ml IM .ONCE ONE Stop: 05/15/17 10:01 Polyethylene Glycol (Miralax) 17 gm PO BID [facility] Last Admin: 05/13/17 10:35 Dose: 17 gm - Labs Labs: 05/13/17 07:37 05/13/17 07:37 PT 10.8 SECONDS (9.7-12.2) 05/12/17 08:27 INR 1.0 05/12/17 08:27 APTT 24 SECONDS (21-34) 05/12/17 08:27 - Constitutional Appears: Well, Non-toxic, No Acute Distress - Head Exam Head Exam: ATRAUMATIC, NORMAL INSPECTION, NORMOCEPHALIC - Eye Exam Eye Exam: EOMI, Normal appearance - ENT Exam ENT Exam: Mucous Membranes Moist - Respiratory Exam Respiratory Exam: NORMAL BREATHING PATTERN. absent: Accessory Muscle Use, Respiratory Distress - Cardiovascular Exam Cardiovascular Exam: absent: JVD - GI/Abdominal Exam GI & Abdominal Exam: Soft, Tenderness (mild epigastric and RUQ tenderness). absent: Guarding - Extremities Exam Extremities Exam: Normal Inspection. absent: Calf Tenderness - Neurological Exam Neurological Exam: Alert, Awake, Oriented x3 - Psychiatric Exam Psychiatric exam: Normal Affect, Normal Mood - Skin Skin Exam: Dry, Intact, Normal Color, Warm Assessment and Plan - Assessment and Plan (Free Text) Assessment: 36F with likely gallstone pancreatitis Plan: - To OR tomorrow for lap nelson - Maximize for OR - NPO past mn - f/u GI recs Further recs as per Dr. Wagner Andrade PGY1 surgery pager: [phone]
--- NOTE | 2017-05-13 15:44 | CP.PCM.PN ---
Subjective - Date & Time of Evaluation Date of Evaluation: 05/13/17 Time of Evaluation: 08:20 - Subjective Subjective: clinically same Objective - Vital Signs/Intake and Output Vital Signs (last 24 hours): Temp Pulse Resp BP Pulse Ox 98.1 F 85 20 123/82 97 05/13/17 07:38 05/13/17 07:38 05/13/17 07:38 05/13/17 07:38 05/13/17 07:38 Intake and Output: 05/13/17 05/13/17 06:59 18:59 Intake Total 3750 Balance 3750 - Medications Medications: Current Medications Enoxaparin Sodium (Lovenox) 40 mg SC DAILY [facility] Last Admin: 05/13/17 10:33 Dose: 40 mg Hydromorphone HCl (Dilaudid) 0.5 mg IVP Q6H PRN PRN Reason: Pain, severe (8-10) Last Admin: 05/12/17 01:14 Dose: 0.5 mg Hydroxychloroquine Sulfate (Plaquenil) 200 mg PO DAILY [facility] PRN Reason: Protocol Last Admin: 05/13/17 10:32 Dose: 200 mg Sodium Chloride (Sodium Chloride 0.45%) 1,000 mls @ 200 mls/hr IV .Q5H [facility] Last Admin: 05/13/17 06:46 Dose: 200 mls/hr Ketorolac Tromethamine (Toradol) 15 mg IV Q6 PRN PRN Reason: Pain, moderate (4-7) Levetiracetam (Keppra) 500 mg PO TID [facility] Last Admin: 05/13/17 14:23 Dose: 500 mg Lisinopril (Zestril) 10 mg PO DAILY [facility] Last Admin: 05/13/17 10:33 Dose: 10 mg Methotrexate (Methotrexate) 10 mg PO QWK [facility] Ondansetron HCl (Zofran Inj) 4 mg IVP Q6 PRN PRN Reason: Nausea/Vomiting Pantoprazole Sodium (Protonix Inj) 40 mg IVP DAILY [facility] Last Admin: 05/13/17 10:32 Dose: 40 mg Pneumococcal Polyvalent Vaccine (Pneumovax 23 Vaccine) 0.5 ml IM .ONCE ONE Stop: 05/15/17 10:01 Polyethylene Glycol (Miralax) 17 gm PO BID [facility] Last Admin: 05/13/17 10:35 Dose: 17 gm - Labs Labs: 05/13/17 07:37 05/13/17 07:37 PT 10.8 SECONDS (9.7-12.2) 05/12/17 08:27 INR 1.0 05/12/17 08:27 APTT 24 SECONDS (21-34) 05/12/17 08:27 - Constitutional Appears: Well - Head Exam Head Exam: ATRAUMATIC, NORMAL INSPECTION, NORMOCEPHALIC - Eye Exam Eye Exam: EOMI, Normal appearance, PERRL Pupil Exam: NORMAL ACCOMODATION, PERRL - ENT Exam ENT Exam: Mucous Membranes Moist, Normal Exam - Neck Exam Neck Exam: Full ROM, Normal Inspection. absent: Lymphadenopathy - Respiratory Exam Respiratory Exam: Decreased Breath Sounds - Cardiovascular Exam Cardiovascular Exam: REGULAR RHYTHM, +S1, +S2 - GI/Abdominal Exam GI & Abdominal Exam: Soft, Diminished Bowel Sounds - Rectal Exam Rectal Exam: Deferred Assessment and Plan (1) Gallstone pancreatitis Status: Acute (2) Abdominal pain Status: Acute (3) Arthralgia Status: Acute (4) Diarrhea Status: Acute (5) Lupus (systemic lupus erythematosus) Status: Acute (6) Myalgia Status: Acute (7) Nausea Status: Acute (8) Vomiting Status: Acute - Assessment and Plan (Free Text) Plan: initial lipase 730; now 345 05/13 Abd US 05/11/17: cholelithiasis, no wall thickening or pericholecystic fluid. pancreas unremarkable as visualized GI, Dr. Bueno, consulted- help appreciated -MRCP neg for filling defect -advance diet from GI standpoint -continue miralax BID, will add enemas -trend LFTs -continue protonix 40mg daily -recommend f/u with primary GI as an outpt at [place] -lap nelson planned for Fri05/14/17 -will sign off Surgery, Dr. Edward, consulted- help appreciated -plan for OR on Friday for lap nelson AST/ALT 46/35 Alk Phos 113 MRCP done by GI 05/12- follow up official results Dilaudid 0.5mg IVP Q6hrs prn Toradol 15mg IV Q6hrs prn Zofran 4mg IVP q6hrs prn History Lupus continue home medication plaquenil 200mg PO daily continue methotrexate 10mg PO weekly (takes four 2.5mg tablets on Friday) prednisone listed in home medications only for lupus flares- not currently taking Consult placed to Dr. Green- follow up recs History seizures continue home medication keppra 500mg PO TID History HTN continue home medication lisinopril 10mg PO daily Prophylactic measure lovenox 40mg SC daily Protonix 40mg IV daily
--- NOTE | 2017-05-13 16:11 | MRI ---
PROCEDURE: Magnetic Resonance Cholangiopancreatography HISTORY: COMPARISON: None available. TECHNIQUE: Multiplanar, multisequence MR images of the abdomen were obtained, including heavily T2 weighted MRCP images of the biliary system. Rotating maximum intensity projection images of the biliary system were generated. FINDINGS: MRCP: The common bile duct is of a normal caliber. No evidence of choledocholithiasis. No intrahepatic biliary ductal dilatation. LIVER: Normal size and contour. Normal signal intensity. No intrahepatic biliary dilatation. No abnormal enhancement. GALLBLADDER: Probable dependent calculi and sludge within the gallbladder lumen. No mural thickening. No mural thickening, enhancement or pericholecystic fluid. SPLEEN: Unremarkable. PANCREAS: No mass. No ductal dilatation ADRENALS: Unremarkable. KIDNEYS: Unremarkable. AORTA: No aneurysm. ASCITES: None. OTHER FINDINGS: None. IMPRESSION: Cholelithiasis. No evidence of cholecystitis. No evidence of biliary obstruction or choledocholithiasis. Preliminary interpretation of this examination was reported by [employer] [facility] at 6:30 p.m. on 05/12/2017. There is concurrence of this report with the preliminary interpretation.
--- NOTE | 2017-05-13 19:08 | CP.PCM.PN ---
Subjective - Date & Time of Evaluation Date of Evaluation: 05/13/17 Time of Evaluation: 19:08 Objective - Vital Signs/Intake and Output Vital Signs (last 24 hours): Temp Pulse Resp BP Pulse Ox 98.6 F 92 H 20 113/79 98 05/13/17 15:00 05/13/17 15:00 05/13/17 15:00 05/13/17 15:00 05/13/17 15:00 Intake and Output: 05/13/17 05/14/17 18:59 06:59 Intake Total 1840 Balance 1840 - Medications Medications: Current Medications Enoxaparin Sodium (Lovenox) 40 mg SC DAILY [facility] Last Admin: 05/13/17 10:33 Dose: 40 mg Hydromorphone HCl (Dilaudid) 0.5 mg IVP Q6H PRN PRN Reason: Pain, severe (8-10) Last Admin: 05/12/17 01:14 Dose: 0.5 mg Hydroxychloroquine Sulfate (Plaquenil) 200 mg PO DAILY [facility] PRN Reason: Protocol Last Admin: 05/13/17 10:32 Dose: 200 mg Sodium Chloride (Sodium Chloride 0.45%) 1,000 mls @ 200 mls/hr IV .Q5H [facility] Last Admin: 05/13/17 06:46 Dose: 200 mls/hr Ketorolac Tromethamine (Toradol) 15 mg IV Q6 PRN PRN Reason: Pain, moderate (4-7) Levetiracetam (Keppra) 500 mg PO TID [facility] Last Admin: 05/13/17 17:47 Dose: 500 mg Lisinopril (Zestril) 10 mg PO DAILY [facility] Last Admin: 05/13/17 10:33 Dose: 10 mg Methotrexate (Methotrexate) 10 mg PO QWK [facility] Ondansetron HCl (Zofran Inj) 4 mg IVP Q6 PRN PRN Reason: Nausea/Vomiting Pantoprazole Sodium (Protonix Inj) 40 mg IVP DAILY [facility] Last Admin: 05/13/17 10:32 Dose: 40 mg Pneumococcal Polyvalent Vaccine (Pneumovax 23 Vaccine) 0.5 ml IM .ONCE ONE Stop: 05/15/17 10:01 Polyethylene Glycol (Miralax) 17 gm PO BID [facility] Last Admin: 05/13/17 17:48 Dose: 17 gm - Labs Labs: 05/13/17 07:37 05/13/17 07:37 PT 10.8 SECONDS (9.7-12.2) 05/12/17 08:27 INR 1.0 05/12/17 08:27 APTT 24 SECONDS (21-34) 05/12/17 08:27
[2017-05-13] MEDS: HYDROmorphone 0.5 mg/0.5 ml ISec IVP PRN (22:19)
[2017-05-14] MEDS: Sodium Chloride 0.45% 1,000 ML IV SCH ×2 (02:16→14:03)
[2017-05-14 07:55] LABS: BASO % 0.4 % (0.0-2.0); EOS % 1.3 % (0.0-4.0); HEMOGLOBIN 9.4 g/dL (11.0-16.0); LYMPH # 0.7 K/uL (1.0-4.3); LYMPH % 20.9 % (20.0-40.0); MEAN CELL VOLUME 83.4 fL (81.0-99.0); MEAN CORPUSCULAR HEMOGLOBIN 28.3 pg (27.0-31.0); MEAN CORPUSCULAR HGB CONC 33.9 g/dL (33.0-37.0); MEAN PLATELET VOLUME 9.1 fL (7.2-11.7); MONO # 0.3 K/uL (0.0-0.8); MONO % 7.1 % (0.0-10.0); NEUT # 2.5 K/uL (1.8-7.0); NEUT % 70.3 % (50.0-75.0); NRBC % 0.2 % (0.0-2.0); RBC 3.32 Mil/uL (3.80-5.20); RED CELL DISTRIBUTION WIDTH 13.4 % (11.5-14.5); WHITE BLOOD COUNT 3.6 K/uL (4.8-10.8)
[2017-05-14 09:09] LABS: ALB/GLOB RATIO 0.7 (1.0-2.1); ALBUMIN 2.7 g/dL (3.5-5.0); ALT/SGPT 29 U/L (9-52); AST/SGOT 35 U/L (14-36); BLOOD UREA NITROGEN 4 mg/dL (7-17); CALCIUM 7.9 mg/dl (8.6-10.4); GFR AFRICAN-AMERICAN > 60; GFR NON-AFRICAN AMERICAN > 60
[2017-05-14] MEDS ORDERED: Propofol 10 mg/ml Inj (20 ML) ONE (09:09)
[2017-05-14] MEDS ORDERED: Midazolam 2 MG/2 ML VIAL ONE (09:09)
[2017-05-14] MEDS ORDERED: Rocuronium 10 mg/ml (10 ml) ONE (09:12)
[2017-05-14] MEDS ORDERED: ceFAZolin 1 gm in NS 1 GM/100 ML BAG IVPB ONE (09:26)
[2017-05-14] MEDS ORDERED: Lidocaine Hydrochloride 0 ML INJ ONE (09:26)
[2017-05-14] MEDS ORDERED: Iohexol 240 200 ML ONE (09:26)
[2017-05-14] MEDS: POLYETHYLENE GLYCOL 3350 17 GM/Dose PACKET PO SCH ×2 (09:36→17:18)
[2017-05-14] MEDS: Iohexol 240 (50 ml) ONE ×2 (10:19→10:26)
[2017-05-14] MEDS ORDERED: Neostigmine Methylsulfate 3mg/3ml Syringe IV ONE (10:53)
--- NOTE | 2017-05-14 11:27 | PCM.SURG1 ---
Surgeon's Initial Post Op Note - Surgeon's Notes Surgeon: Dr Edward Lockstitch Front Edge Tape Sewer: Dr Waters PGY3 Type of Anesthesia: General Endo Pre-Operative Diagnosis: gallstone pancreatitis Operative Findings: see report Post-Operative Diagnosis: as above Operation Performed: laparoscopic cholecystectomy. intraoperative cholangiogram Specimen/Specimens Removed: gallbladder Estimated Blood Loss: EBL {In ML}: 50 Blood Products Given: N/A Drains Used: No Drains Post-Op Condition: Good Date of Surgery/Procedure: 05/14/17 Time of Surgery/Procedure: 11:27
[2017-05-14] MEDS ORDERED: HYDROmorphone 0.5 mg/0.5 ml ISec IVP PRN (11:28)
--- NOTE | 2017-05-14 11:36 | CP.PCM.PN ---
<Baron Carlisle - Last Filed: 05/14/17 13:31> Subjective - Date & Time of Evaluation Date of Evaluation: 05/14/17 Time of Evaluation: 11:31 - Subjective Subjective: Progress note for Dr. Horvath's Service Pt seen and examined at bedside. No acute events overnight. She is scheduled for lap nelson today. Objective - Vital Signs/Intake and Output Vital Signs (last 24 hours): Temp Pulse Resp BP Pulse Ox 98.1 F 85 20 117/74 97 05/14/17 07:46 05/14/17 07:46 05/14/17 07:46 05/14/17 07:46 05/14/17 07:46 Intake and Output: 05/14/17 05/14/17 06:59 18:59 Intake Total 3050 1100 Balance 3050 1100 - Medications Medications: Current Medications Enoxaparin Sodium (Lovenox) 40 mg SC DAILY [facility] Last Admin: 05/13/17 10:33 Dose: 40 mg Hydromorphone HCl (Dilaudid) 0.5 mg IVP Q5M PRN PRN Reason: Pain, severe (8-10) Stop: 05/14/17 13:29 Hydroxychloroquine Sulfate (Plaquenil) 200 mg PO DAILY [facility] PRN Reason: Protocol Last Admin: 05/14/17 09:36 Dose: Not Given Sodium Chloride (Sodium Chloride 0.45%) 1,000 mls @ 200 mls/hr IV .Q5H [facility] Last Admin: 05/14/17 02:16 Dose: 200 mls/hr Levetiracetam (Keppra) 500 mg PO TID [facility] Last Admin: 05/14/17 09:36 Dose: Not Given Lisinopril (Zestril) 10 mg PO DAILY [facility] Last Admin: 05/14/17 09:36 Dose: Not Given Methotrexate (Methotrexate) 10 mg PO QWK [facility] Metoclopramide HCl (Reglan) 10 mg IVP ONCE PRN PRN Reason: Nausea/Vomiting Stop: 05/14/17 13:29 Morphine Sulfate (Morphine) 2 mg IVP Q4 PRN PRN Reason: Pain, Mild (1-3) Ondansetron HCl (Zofran Inj) 4 mg IVP Q6 PRN PRN Reason: Nausea/Vomiting Oxycodone/Acetaminophen (Percocet 5/325 Mg Tab) 1 tab PO Q4H PRN PRN Reason: Pain, moderate (4-7) Stop: 05/17/17 11:29 Pantoprazole Sodium (Protonix Inj) 40 mg IVP DAILY [facility] Last Admin: 05/13/17 10:32 Dose: 40 mg Pneumococcal Polyvalent Vaccine (Pneumovax 23 Vaccine) 0.5 ml IM .ONCE ONE Stop: 05/15/17 10:01 Polyethylene Glycol (Miralax) 17 gm PO BID [facility] Last Admin: 05/14/17 09:36 Dose: Not Given - Labs Labs: 05/14/17 07:20 05/14/17 07:20 PT 10.8 SECONDS (9.7-12.2) 05/12/17 08:27 INR 1.0 05/12/17 08:27 APTT 24 SECONDS (21-34) 05/12/17 08:27 - Constitutional Appears: No Acute Distress - Head Exam Head Exam: ATRAUMATIC, NORMOCEPHALIC - Eye Exam Eye Exam: EOMI - ENT Exam ENT Exam: Mucous Membranes Moist - Respiratory Exam Respiratory Exam: Clear to Ausculation Bilateral, NORMAL BREATHING PATTERN - Cardiovascular Exam Cardiovascular Exam: REGULAR RHYTHM - GI/Abdominal Exam GI & Abdominal Exam: Soft, Tenderness (TTP upper quadrants) - Neurological Exam Neurological Exam: Alert, Awake, Oriented x3 - Psychiatric Exam Psychiatric exam: Normal Affect, Normal Mood - Skin Skin Exam: Dry, Warm Assessment and Plan - Assessment and Plan (Free Text) Plan: Gallstone pancreatitis initial lipase 730; now 345 05/13 Abd US 05/11/17: cholelithiasis, no wall thickening or pericholecystic fluid. pancreas unremarkable as visualized GI, Dr. Bueno, consulted- help appreciated -MRCP neg for filling defect -advance diet from GI standpoint -continue miralax BID, will add enemas -trend LFTs -continue protonix 40mg daily -recommend f/u with primary GI as an outpt at [facility] -lap nelson planned for Fri05/14/17 -will sign off Surgery, Dr. Edward, consulted- help appreciated -plan for OR today 05/14 for lap nelson LFT's NML today 05/14/17 MRCP done by GI 05/12- follow up official results Morphine 2mg IV q4prn -as per surgery Oxycodone 1T PO q4hrs prn -as per surgery Zofran 4mg IVP q6hrs prn History Lupus continue home medication plaquenil 200mg PO daily continue methotrexate 10mg PO weekly (takes four 2.5mg tablets on Friday) prednisone listed in home medications only for lupus flares- not currently taking Consult placed to Dr. Green- follow up recs History seizures continue home medication keppra 500mg PO TID History HTN continue home medication lisinopril 10mg PO daily Prophylactic measure lovenox 40mg SC daily Protonix 40mg IV daily Reglan prn nausea/vomiting Zofran 4mg IVP q6hrs prn case discussed with Dr. Horvath all management as per Dr. Horvath <Dhaval Horvath S - Last Filed: 05/15/17 18:33> Objective - Vital Signs/Intake and Output Vital Signs (last 24 hours): Temp Pulse Resp BP Pulse Ox 98.5 F 90 20 113/75 96 05/15/17 07:45 05/15/17 07:45 05/15/17 07:45 05/15/17 07:45 05/15/17 07:45 Intake and Output: 05/15/17 05/15/17 06:59 18:59 Intake Total 1790 1280 Balance 1790 1280 - Labs Labs: 05/14/17 07:20 05/14/17 07:20 PT 10.8 SECONDS (9.7-12.2) 05/12/17 08:27 INR 1.0 05/12/17 08:27 APTT 24 SECONDS (21-34) 05/12/17 08:27 Assessment and Plan (1) Gallstone pancreatitis Status: Acute (2) Abdominal pain Status: Acute (3) Arthralgia Status: Acute (4) Diarrhea Status: Acute (5) Lupus (systemic lupus erythematosus) Status: Acute (6) Myalgia Status: Acute (7) Nausea Status: Acute (8) Vomiting Status: Acute Attending/Attestation - Attestation I have personally seen and examined this patient.: Yes I have fully participated in the care of the patient.: Yes I have reviewed all pertinent clinical information, including history, physical exam and plan: Yes Notes (Text): Gallstone pancreatitis initial lipase 730; now 345 05/13 Abd US 05/11/17: cholelithiasis, no wall thickening or pericholecystic fluid. pancreas unremarkable as visualized GI, Dr. Bueno, consulted- help appreciated -MRCP neg for filling defect -advance diet from GI standpoint -continue miralax BID, will add enemas -trend LFTs -continue protonix 40mg daily -recommend f/u with primary GI as an outpt at [facility] -lap nelson planned for Fri05/14/17 -will sign off Surgery, Dr. Edward, consulted- help appreciated -plan for OR today 05/14 for lap nelson LFT's NML today 05/14/17 MRCP done by GI 05/12- follow up official results Morphine 2mg IV q4prn -as per surgery Oxycodone 1T PO q4hrs prn -as per surgery Zofran 4mg IVP q6hrs prn History Lupus continue home medication plaquenil 200mg PO daily continue methotrexate 10mg PO weekly (takes four 2.5mg tablets on Friday) prednisone listed in home medications only for lupus flares- not currently taking Consult placed to Dr. Green- follow up recs History seizures continue home medication keppra 500mg PO TID History HTN continue home medication lisinopril 10mg PO daily Prophylactic measure lovenox 40mg SC daily Protonix 40mg IV daily Reglan prn nausea/vomiting Zofran 4mg IVP q6hrs prn
[2017-05-14] MEDS ORDERED: HYDROmorphone 1 mg/ml ISec ONE (11:59)
[2017-05-14 13:40] VITALS: RESP 20
[2017-05-14] MEDS: Morphine 4 MG/ML VIAL IVP PRN ×2 (14:39→20:10)
--- NOTE | 2017-05-14 18:56 | CP.PCM.PN ---
Subjective - Date & Time of Evaluation Date of Evaluation: 05/14/17 Time of Evaluation: 08:00 - Subjective Subjective: clinically same Objective - Vital Signs/Intake and Output Vital Signs (last 24 hours): Temp Pulse Resp BP Pulse Ox 98.1 F 97 H 20 119/79 97 05/14/17 15:00 05/14/17 15:00 05/14/17 15:00 05/14/17 15:00 05/14/17 15:00 Intake and Output: 05/14/17 05/14/17 06:59 18:59 Intake Total 3050 3225 Balance 3050 3225 - Medications Medications: Current Medications Enoxaparin Sodium (Lovenox) 40 mg SC DAILY [facility] Last Admin: 05/13/17 10:33 Dose: 40 mg Hydroxychloroquine Sulfate (Plaquenil) 200 mg PO DAILY [facility] PRN Reason: Protocol Last Admin: 05/14/17 09:36 Dose: Not Given Sodium Chloride (Sodium Chloride 0.45%) 1,000 mls @ 75 mls/hr IV .[id number] [facility] Last Admin: 05/14/17 14:03 Dose: 75 mls/hr Levetiracetam (Keppra) 500 mg PO TID [facility] Last Admin: 05/14/17 17:18 Dose: 500 mg Lisinopril (Zestril) 10 mg PO DAILY [facility] Last Admin: 05/14/17 09:36 Dose: Not Given Methotrexate (Methotrexate) 10 mg PO QWK [facility] Morphine Sulfate (Morphine) 2 mg IVP Q4 PRN PRN Reason: Pain, Mild (1-3) Last Admin: 05/14/17 14:39 Dose: 2 mg Ondansetron HCl (Zofran Inj) 4 mg IVP Q6 PRN PRN Reason: Nausea/Vomiting Oxycodone/Acetaminophen (Percocet 5/325 Mg Tab) 1 tab PO Q4H PRN PRN Reason: Pain, moderate (4-7) Stop: 05/17/17 11:29 Pantoprazole Sodium (Protonix Inj) 40 mg IVP DAILY [facility] Last Admin: 05/14/17 10:00 Dose: Not Given Pneumococcal Polyvalent Vaccine (Pneumovax 23 Vaccine) 0.5 ml IM .ONCE ONE Stop: 05/15/17 10:01 Polyethylene Glycol (Miralax) 17 gm PO BID [facility] Last Admin: 05/14/17 17:18 Dose: 17 gm - Labs Labs: 05/14/17 07:20 05/14/17 07:20 PT 10.8 SECONDS (9.7-12.2) 05/12/17 08:27 INR 1.0 05/12/17 08:27 APTT 24 SECONDS (21-34) 05/12/17 08:27 - Constitutional Appears: Well - Head Exam Head Exam: ATRAUMATIC, NORMAL INSPECTION, NORMOCEPHALIC - Eye Exam Eye Exam: EOMI, Normal appearance, PERRL Pupil Exam: NORMAL ACCOMODATION, PERRL - ENT Exam ENT Exam: Mucous Membranes Moist, Normal Exam - Neck Exam Neck Exam: Full ROM, Normal Inspection. absent: Lymphadenopathy - Respiratory Exam Respiratory Exam: Decreased Breath Sounds - Cardiovascular Exam Cardiovascular Exam: REGULAR RHYTHM, +S1, +S2 - GI/Abdominal Exam GI & Abdominal Exam: Soft, Diminished Bowel Sounds - Rectal Exam Rectal Exam: Deferred Assessment and Plan (1) Gallstone pancreatitis Status: Acute (2) Abdominal pain Status: Acute (3) Arthralgia Status: Acute (4) Diarrhea Status: Acute (5) Lupus (systemic lupus erythematosus) Status: Acute (6) Myalgia Status: Acute (7) Nausea Status: Acute (8) Vomiting Status: Acute - Assessment and Plan (Free Text) Plan: Gallstone pancreatitis initial lipase 730; now 345 05/13 Abd US 05/11/17: cholelithiasis, no wall thickening or pericholecystic fluid. pancreas unremarkable as visualized GI, Dr. Bueno, consulted- help appreciated -MRCP neg for filling defect -advance diet from GI standpoint -continue miralax BID, will add enemas -trend LFTs -continue protonix 40mg daily -recommend f/u with primary GI as an outpt at [place] -lap nelson planned for 05/14/17 -will sign off Surgery, Dr. Edward, consulted- help appreciated -plan for OR today 05/14 for lap nelson LFT's NML today 05/14/17 MRCP done by GI 05/12- follow up official results Morphine 2mg IV q4prn -as per surgery Oxycodone 1T PO q4hrs prn -as per surgery Zofran 4mg IVP q6hrs prn History Lupus continue home medication plaquenil 200mg PO daily continue methotrexate 10mg PO weekly (takes four 2.5mg tablets on Friday) prednisone listed in home medications only for lupus flares- not currently taking Consult placed to Dr. Green- follow up recs History seizures continue home medication keppra 500mg PO TID History HTN continue home medication lisinopril 10mg PO daily Prophylactic measure lovenox 40mg SC daily Protonix 40mg IV daily Reglan prn nausea/vomiting Zofran 4mg IVP q6hrs prn
--- NOTE | 2017-05-14 22:32 | OP ---
PROCEDURE DATE: 05/14/2017 PREOPERATIVE DIAGNOSIS: Pancreatitis and cholelithiasis. PROCEDURE: Laparoscopic cholecystectomy with C-arm cholangiogram. SURGEON: Blane Edward Jr., M.D. PATTERN CLERK: Dr. Waters. ANESTHESIOLOGIST: Mr. Lau. INDICATIONS: The patient is a young woman with abdominal pain, known to have gallstones, admitted to the hospital with acute pancreatitis. OPERATIVE FINDINGS: The gallbladder was adherent densely to the liver bed and was somewhat large. There were multiple small stones. A cholangiogram carried out to the cystic duct showed free flow into the duodenum. Visualization of the hepatic pedicles. No evidence of any retained stones, but a slightly dilated duct. Rest of the intraoperative findings were unremarkable. DESCRIPTION OF PROCEDURE: The patient was given general anesthesia, intravenous antibiotics, Venodyne boots were applied. Ayaz trocar was inserted by cut-down technique. Two additional 5 mm trocars were placed. Cystic duct and cystic artery were identified. A view of safety was obtained. We removed the gallbladder. After this has been done, we then obtained excellent hemostasis in the liver bed. We clipped the cystic duct, clipped the cystic artery, carried out the cholangiogram, and after this had been done, we then terminated the procedure. We then used a closure device to help close the umbilical port. The rest of ports were self-closure. Subcuticular closure was carried out on the skin with Steri-Strips. Blood loss was 25 mL. Operation carried out was laparoscopic cholecystectomy with C-arm cholangiogram. Blane Edward Jr., MD cc: Nabil Szymanski MD
[2017-05-15] MEDS: Oxycodone/Acetaminophen 5/325 mg Tab PO PRN ×2 (00:19→13:13)
[2017-05-15] MEDS: Sodium Chloride 0.45% 1,000 ML IV SCH ×2 (01:56→04:30)
[2017-05-15] MEDS: Morphine 4 MG/ML VIAL IVP PRN (06:14)
--- NOTE | 2017-05-15 08:58 | CP.PCM.PN ---
Subjective - Date & Time of Evaluation Date of Evaluation: 05/15/17 Time of Evaluation: 08:54 - Subjective Subjective: General Surgery: Dr Edward Pt S&E. NAEO. POD#1 s/p lap nelson. Reports pain significantly improved. Tolerating diet. Passing flatus. Has been OOB and ambulating. Denies f/c, n/v , sob or chest pain. Objective - Vital Signs/Intake and Output Vital Signs (last 24 hours): Temp Pulse Resp BP Pulse Ox 98.5 F 90 20 113/75 96 05/15/17 07:45 05/15/17 07:45 05/15/17 07:45 05/15/17 07:45 05/15/17 07:45 Intake and Output: 05/15/17 05/15/17 06:59 18:59 Intake Total 1790 Balance 1790 - Medications Medications: Current Medications Enoxaparin Sodium (Lovenox) 40 mg SC DAILY [facility] Last Admin: 05/13/17 10:33 Dose: 40 mg Hydroxychloroquine Sulfate (Plaquenil) 200 mg PO DAILY [facility] PRN Reason: Protocol Last Admin: 05/14/17 09:36 Dose: Not Given Sodium Chloride (Sodium Chloride 0.45%) 1,000 mls @ 75 mls/hr IV .[id number] [facility] Last Admin: 05/15/17 04:30 Dose: 75 mls/hr Levetiracetam (Keppra) 500 mg PO TID [facility] Last Admin: 05/14/17 17:18 Dose: 500 mg Lisinopril (Zestril) 10 mg PO DAILY [facility] Last Admin: 05/14/17 09:36 Dose: Not Given Methotrexate (Methotrexate) 10 mg PO QWK [facility] Morphine Sulfate (Morphine) 2 mg IVP Q4 PRN PRN Reason: Pain, Mild (1-3) Last Admin: 05/15/17 06:14 Dose: 2 mg Ondansetron HCl (Zofran Inj) 4 mg IVP Q6 PRN PRN Reason: Nausea/Vomiting Oxycodone/Acetaminophen (Percocet 5/325 Mg Tab) 1 tab PO Q4H PRN PRN Reason: Pain, moderate (4-7) Stop: 05/17/17 11:29 Last Admin: 05/15/17 00:19 Dose: 1 tab Pantoprazole Sodium (Protonix Inj) 40 mg IVP DAILY [facility] Last Admin: 05/14/17 10:00 Dose: Not Given Pneumococcal Polyvalent Vaccine (Pneumovax 23 Vaccine) 0.5 ml IM .ONCE ONE Stop: 05/15/17 10:01 Polyethylene Glycol (Miralax) 17 gm PO BID [facility] Last Admin: 05/14/17 17:18 Dose: 17 gm - Labs Labs: 05/14/17 07:20 05/14/17 07:20 PT 10.8 SECONDS (9.7-12.2) 05/12/17 08:27 INR 1.0 05/12/17 08:27 APTT 24 SECONDS (21-34) 05/12/17 08:27 - Constitutional Appears: Non-toxic, No Acute Distress - Head Exam Head Exam: ATRAUMATIC - ENT Exam ENT Exam: Mucous Membranes Moist - Respiratory Exam Respiratory Exam: absent: Accessory Muscle Use, Respiratory Distress - Cardiovascular Exam Cardiovascular Exam: REGULAR RHYTHM. absent: Tachycardia - GI/Abdominal Exam GI & Abdominal Exam: Soft. absent: Distended, Firm, Guarding, Rigid, Tenderness Additional comments: dressing c/d/i - Neurological Exam Neurological Exam: Alert, Awake, Oriented x3 - Psychiatric Exam Psychiatric exam: Normal Affect, Normal Mood - Skin Skin Exam: Normal Color, Warm Assessment and Plan - Assessment and Plan (Free Text) Assessment: 36F POD#1 s/p andrew nelson Plan: pt doing well clear for d/c from surgery d/c instructions given at bedside f/u in clinic in 1 week d/w Dr Wagner Waters, PGY3
[2017-05-15] MEDS ORDERED: Pneumococcal 23-Valent Vaccine IM ONE ×2 (10:00→13:45)
[2017-05-15] MEDS: POLYETHYLENE GLYCOL 3350 17 GM/Dose PACKET PO SCH (10:02)
--- NOTE | 2017-05-15 10:35 | CP.PCM.PN ---
Subjective - Date & Time of Evaluation Date of Evaluation: 05/15/17 Time of Evaluation: 08:00 - Subjective Subjective: clinically same Objective - Vital Signs/Intake and Output Vital Signs (last 24 hours): Temp Pulse Resp BP Pulse Ox 98.5 F 90 20 113/75 96 05/15/17 07:45 05/15/17 07:45 05/15/17 07:45 05/15/17 07:45 05/15/17 07:45 Intake and Output: 05/15/17 05/15/17 06:59 18:59 Intake Total 1790 Balance 1790 - Medications Medications: Current Medications Enoxaparin Sodium (Lovenox) 40 mg SC DAILY [facility] Last Admin: 05/13/17 10:33 Dose: 40 mg Hydroxychloroquine Sulfate (Plaquenil) 200 mg PO DAILY [facility] PRN Reason: Protocol Last Admin: 05/15/17 10:02 Dose: 200 mg Sodium Chloride (Sodium Chloride 0.45%) 1,000 mls @ 75 mls/hr IV .[id number] [facility] Last Admin: 05/15/17 04:30 Dose: 75 mls/hr Levetiracetam (Keppra) 500 mg PO TID [facility] Last Admin: 05/15/17 10:02 Dose: 500 mg Lisinopril (Zestril) 10 mg PO DAILY [facility] Last Admin: 05/15/17 10:03 Dose: 10 mg Methotrexate (Methotrexate) 10 mg PO QWK [facility] Morphine Sulfate (Morphine) 2 mg IVP Q4 PRN PRN Reason: Pain, Mild (1-3) Last Admin: 05/15/17 06:14 Dose: 2 mg Ondansetron HCl (Zofran Inj) 4 mg IVP Q6 PRN PRN Reason: Nausea/Vomiting Oxycodone/Acetaminophen (Percocet 5/325 Mg Tab) 1 tab PO Q4H PRN PRN Reason: Pain, moderate (4-7) Stop: 05/17/17 11:29 Last Admin: 05/15/17 00:19 Dose: 1 tab Pantoprazole Sodium (Protonix Inj) 40 mg IVP DAILY [facility] Last Admin: 05/15/17 10:03 Dose: 40 mg Polyethylene Glycol (Miralax) 17 gm PO BID [facility] Last Admin: 05/15/17 10:02 Dose: 17 gm - Labs Labs: 05/14/17 07:20 05/14/17 07:20 PT 10.8 SECONDS (9.7-12.2) 05/12/17 08:27 INR 1.0 05/12/17 08:27 APTT 24 SECONDS (21-34) 05/12/17 08:27 - Constitutional Appears: Well - Head Exam Head Exam: ATRAUMATIC, NORMAL INSPECTION, NORMOCEPHALIC - Eye Exam Eye Exam: EOMI, Normal appearance, PERRL Pupil Exam: NORMAL ACCOMODATION, PERRL - ENT Exam ENT Exam: Mucous Membranes Moist, Normal Exam - Neck Exam Neck Exam: Full ROM, Normal Inspection. absent: Lymphadenopathy - Respiratory Exam Respiratory Exam: Decreased Breath Sounds - Cardiovascular Exam Cardiovascular Exam: REGULAR RHYTHM, +S1, +S2 - GI/Abdominal Exam GI & Abdominal Exam: Soft, Diminished Bowel Sounds - Rectal Exam Rectal Exam: Deferred Assessment and Plan (1) Gallstone pancreatitis Status: Acute (2) Abdominal pain Status: Acute (3) Arthralgia Status: Acute (4) Diarrhea Status: Acute (5) Lupus (systemic lupus erythematosus) Status: Acute (6) Myalgia Status: Acute (7) Nausea Status: Acute (8) Vomiting Status: Acute - Assessment and Plan (Free Text) Plan: Gallstone pancreatitis Surgery, Dr. Edward, consulted- help appreciated POD#1 lap nelson initial lipase 730; now 345 05/13 Abd US 05/11/17: cholelithiasis, no wall thickening or pericholecystic fluid. pancreas unremarkable as visualized GI, Dr. Bueno, consulted- help appreciated -MRCP neg for filling defect -advance diet from GI standpoint -continue miralax BID, will add enemas -trend LFTs -continue protonix 40mg daily -recommend f/u with primary GI as an outpt at [place] -lap nelson planned for Fri05/14/17 -will sign off LFT's NML today 05/15/17 Oxycodone 1T PO q4hrs prn -as per surgery Zofran 4mg IVP q6hrs prn History Lupus continue home medication plaquenil 200mg PO daily continue methotrexate 10mg PO weekly (takes four 2.5mg tablets on Friday) prednisone listed in home medications only for lupus flares- not currently taking Consult placed to Dr. Green- follow up recs History seizures continue home medication keppra 500mg PO TID History HTN continue home medication lisinopril 10mg PO daily Prophylactic measure lovenox 40mg SC daily Protonix 40mg IV daily Reglan prn nausea/vomiting Zofran 4mg IVP q6hrs prn followup at my office tomorrow am
[2017-05-15 11:16] VITALS: BP 113/75; PULSE 90; TEMP 98.5; O2SAT 96
--- NOTE | 2017-05-15 12:38 | CP.PCM.PN ---
<Norma Phelps DO - Last Filed: 05/15/17 13:55> Subjective - Date & Time of Evaluation Date of Evaluation: 05/15/17 Time of Evaluation: 09:45 - Subjective Subjective: Medicine progress note for Dr. Horvath's service Patient seen and examined. Patient is POD#1 laparoscopic cholecystectomy. Patient denies nausea and states pain is well-controlled. Patient admits to flatus but denies bowel movement. Patient states she ate dinner last night and tolerated well. Objective - Vital Signs/Intake and Output Vital Signs (last 24 hours): Temp Pulse Resp BP Pulse Ox 98.5 F 90 20 113/75 96 05/15/17 07:45 05/15/17 07:45 05/15/17 07:45 05/15/17 07:45 05/15/17 07:45 Intake and Output: 05/15/17 05/15/17 06:59 18:59 Intake Total 1790 Balance 1790 - Medications Medications: Current Medications Enoxaparin Sodium (Lovenox) 40 mg SC DAILY [facility] Last Admin: 05/13/17 10:33 Dose: 40 mg Hydroxychloroquine Sulfate (Plaquenil) 200 mg PO DAILY [facility] PRN Reason: Protocol Last Admin: 05/15/17 10:02 Dose: 200 mg Sodium Chloride (Sodium Chloride 0.45%) 1,000 mls @ 75 mls/hr IV .[id number] [facility] Last Admin: 05/15/17 04:30 Dose: 75 mls/hr Levetiracetam (Keppra) 500 mg PO TID [facility] Last Admin: 05/15/17 10:02 Dose: 500 mg Lisinopril (Zestril) 10 mg PO DAILY [facility] Last Admin: 05/15/17 10:03 Dose: 10 mg Methotrexate (Methotrexate) 10 mg PO QWK [facility] Morphine Sulfate (Morphine) 2 mg IVP Q4 PRN PRN Reason: Pain, Mild (1-3) Last Admin: 05/15/17 06:14 Dose: 2 mg Ondansetron HCl (Zofran Inj) 4 mg IVP Q6 PRN PRN Reason: Nausea/Vomiting Oxycodone/Acetaminophen (Percocet 5/325 Mg Tab) 1 tab PO Q4H PRN PRN Reason: Pain, moderate (4-7) Stop: 05/17/17 11:29 Last Admin: 05/15/17 00:19 Dose: 1 tab Pantoprazole Sodium (Protonix Inj) 40 mg IVP DAILY [facility] Last Admin: 05/15/17 10:03 Dose: 40 mg Polyethylene Glycol (Miralax) 17 gm PO BID [facility] Last Admin: 05/15/17 10:02 Dose: 17 gm - Labs Labs: 05/14/17 07:20 05/14/17 07:20 PT 10.8 SECONDS (9.7-12.2) 05/12/17 08:27 INR 1.0 05/12/17 08:27 APTT 24 SECONDS (21-34) 05/12/17 08:27 - Constitutional Appears: Non-toxic, No Acute Distress - Head Exam Head Exam: ATRAUMATIC, NORMOCEPHALIC - Eye Exam Eye Exam: EOMI - ENT Exam ENT Exam: Mucous Membranes Moist - Respiratory Exam Respiratory Exam: Clear to Ausculation Bilateral, NORMAL BREATHING PATTERN - Cardiovascular Exam Cardiovascular Exam: +S1, +S2 - GI/Abdominal Exam GI & Abdominal Exam: Soft, Normal Bowel Sounds. absent: Distended, Firm, Guarding, Tenderness Additional comments: laparoscopic incisions covered in clean dry dressings - Extremities Exam Extremities Exam: Normal Inspection. absent: Pedal Edema - Neurological Exam Neurological Exam: Alert, Awake - Psychiatric Exam Psychiatric exam: Normal Affect - Skin Skin Exam: Warm Assessment and Plan - Assessment and Plan (Free Text) Assessment: Gallstone pancreatitis Surgery, Dr. Edward, consulted- help appreciated POD#1 lap nelson initial lipase 730; now 345 05/13 Abd US 05/11/17: cholelithiasis, no wall thickening or pericholecystic fluid. pancreas unremarkable as visualized GI, Dr. Bueno, consulted- help appreciated -MRCP neg for filling defect -advance diet from GI standpoint -continue miralax BID, will add enemas -trend LFTs -continue protonix 40mg daily -recommend f/u with primary GI as an outpt at [place] -lap nelson planned for 05/14/17 -will sign off LFT's NML today 05/15/17 Oxycodone 1T PO q4hrs prn -as per surgery Zofran 4mg IVP q6hrs prn History Lupus continue home medication plaquenil 200mg PO daily continue methotrexate 10mg PO weekly (takes four 2.5mg tablets on Friday) prednisone listed in home medications only for lupus flares- not currently taking Consult placed to Dr. Green- follow up recs History seizures continue home medication keppra 500mg PO TID History HTN continue home medication lisinopril 10mg PO daily Prophylactic measure lovenox 40mg SC daily Protonix 40mg IV daily Reglan prn nausea/vomiting Zofran 4mg IVP q6hrs prn case discussed with Dr. Horvath all management as per Dr. Horvath Patient is stable for discharge home per Dr. Horvath. Patient is to resume home medications Methotrexate, Lisinopril, Keppra, Plaquenil. Patient is to be discharged with percocet for pain control. Patient is to follow up with Dr. Horvath tomorrow at 3PM. Patient is to follow up with her surgeon, Dr. Edward, in one week from discharge. This was explained to patient who understands and agrees. <Dhaval Horvath S - Last Filed: 05/15/17 18:32> Objective - Vital Signs/Intake and Output Vital Signs (last 24 hours): Temp Pulse Resp BP Pulse Ox 98.5 F 90 20 113/75 96 05/15/17 07:45 05/15/17 07:45 05/15/17 07:45 05/15/17 07:45 05/15/17 07:45 Intake and Output: 05/15/17 05/15/17 06:59 18:59 Intake Total 1790 1280 Balance 1790 1280 - Labs Labs: 05/14/17 07:20 05/14/17 07:20 PT 10.8 SECONDS (9.7-12.2) 05/12/17 08:27 INR 1.0 05/12/17 08:27 APTT 24 SECONDS (21-34) 05/12/17 08:27 Assessment and Plan (1) Gallstone pancreatitis Status: Acute (2) Abdominal pain Status: Acute (3) Arthralgia Status: Acute (4) Diarrhea Status: Acute (5) Lupus (systemic lupus erythematosus) Status: Acute (6) Myalgia Status: Acute (7) Nausea Status: Acute (8) Vomiting Status: Acute
--- NOTE | 2017-05-15 16:42 | RAD ---
PROCEDURE: HISTORY: As Above COMPARISON: TECHNIQUE: Total fluoroscopic time utilized during the procedure: 76.5 seconds. Total dose 0.62548 mGy cm squared FINDINGS: Submitted images from the current procedure: 10 Please refer to the physician's notes performing the procedure. IMPRESSION: Less than 1 hour fluoroscopic time utilized during performance of the procedure
== END 2017-05-15 16:05 | disposition home or self-care (01) | DRG 417 ==
LOC: C.ER 21:15 → C.3T 05-12 00:06
PROVIDERS: ADMIT Internal Medicine Critical Care Medicine; ATTEND Internal Medicine Nephrology
PROC: BF101ZZ Fluoroscopy of Bile Ducts using Low Osmolar Contrast (ICD-10-PCS; 2017-05-14)
PROC: 0FT44ZZ Resection of Gallbladder, Percutaneous Endoscopic Approach (ICD-10-PCS; principal; 2017-05-14 09:30)
DX: K80.20 Calculus of gallbladder without cholecystitis without obstruction (principal); K85.10 Biliary acute pancreatitis without necrosis or infection; I10 Essential (primary) hypertension; M32.9 Systemic lupus erythematosus, unspecified; Z82.49 Family history of ischemic heart disease and other diseases of the circulatory system; M25.50 Pain in unspecified joint; K59.09 Other constipation; G40.909 Epilepsy, unspecified, not intractable, without status epilepticus

== ENCOUNTER 2017-06-15 16:31 | Emergency (ER) | payer BC, MEDICAID ==
[2017-06-15 16:31] VITALS: BMI 25.8
--- NOTE | 2017-06-15 16:50 | C.PDOC ---
History Of Present Illness 36 year old female presents to the emergency department with complaints of a painful rash with blisters on her left abdomen and back that started . Patient has a PMHx of SLE Lupus and is currently taking Plaquenil, and she denies any fever or rashes elsewhere on her body. Time Seen by Provider: 06/15/17 16:41 Chief Complaint (Nursing): Abnormal Skin Integrity History Per: Patient History/Exam Limitations: no limitations Onset/Duration Of Symptoms: Days (3) Location Of Injury: Left: Abdomen, Back Quality Of Symptoms: Other (rash, blisters) Past Medical History Reviewed: Historical Data, Nursing Documentation, Vital Signs Vital Signs: Last Vital Signs Temp 98.4 F 06/15/17 17:40 Pulse 90 06/15/17 17:40 Resp 16 06/15/17 17:40 BP 133/93 H 06/15/17 17:40 Pulse Ox 97 06/15/17 17:40 - Medical History PMH: Gall Bladder Disease (Gallstones), HTN, Seizures (10/2016 last seizure) Denies: Chronic Kidney Disease Surgical History: No Surg Hx - [facility] Procedures FLUOROSCOPY OF BILE DUCTS USING LOW OSMOLAR CONTRAST (05/12/17) RESECTION OF GALLBLADDER, PERCUTANEOUS ENDOSCOPIC APPROACH (05/12/17) Family History: States: No Known Family Hx - Social History Hx Tobacco Use: No Hx Alcohol Use: No Hx Substance Use: No - Immunization History Hx Tetanus Toxoid Vaccination: No Hx Influenza Vaccination: No Hx Pneumococcal Vaccination: No Review Of Systems Constitutional: Negative for: Fever Skin: Positive for: Rash, Other (blisters) Physical Exam - Physical Exam Appears: Non-toxic, In Acute Distress (moderate pain) Skin: Rash (dermatome vasicular rash noted on left abdomen and pack, tender to palpation. ) Cardiovascular: Rhythm Regular Respiratory: Normal Breath Sounds Gastrointestinal/Abdominal: Normal Exam, No Tenderness ED Course And Treatment Progress Note: Plan: Percocet 1 Tab PO. Acyclovir 800mg PO. Patient treated with and provided prescriptions for aforementioned medications, and was advised to follow up with her PMD. Disposition Counseled Patient/Family Regarding: Diagnosis, Need For Followup, Rx Given - Disposition Referrals: Darvin Fortune MD [Staff Provider] - Disposition: HOME/ ROUTINE Disposition Time: 17:15 Condition: STABLE Additional Instructions: FOLLOW UP WITH YOUR DOCTOR IN 1-2 DAYS USE MEDICATIONS DIRECTED RETURN TO ER IF SYMPTOMS WORSEN Prescriptions: Acyclovir [Zovirax] 800 mg PO 5XD #50 tablet oxyCODONE/Acetaminophen [Percocet 5/325 mg Tab] 1 tab PO QID PRN #15 tab PRN Reason: Pain Instructions: Shingles (DC) Forms: [employer] (Armenian) Print Language: ETHIOPIAN - POA Present On Arrival: None - Clinical Impression Clinical Impression: Shingles - Scribe Statement The provider has reviewed the documentation as recorded by the Scribe (Thad Bradshaw) Provider Attestation: All medical record entries made by the Scribe were at my direction and personally dictated by me. I have reviewed the chart and agree that the record accurately reflects my personal performance of the history, physical exam, medical decision making, and the department course for this patient. I have also personally directed, reviewed, and agree with the discharge instructions and disposition.
[2017-06-15] MEDS ORDERED: Oxycodone/Acetaminophen 5/325 mg Tab PO STA (16:59)
[2017-06-15] MEDS ORDERED: Oxycodone/Acetaminophen 5/325 mg Tab ONE (17:05)
[2017-06-15 17:46] VITALS: BP 133/93; PULSE 90; RESP 16; TEMP 98.4; O2SAT 97
== END 2017-06-15 17:41 | disposition home or self-care (01) ==
LOC: C.ER 16:31
DX: B02.9 Zoster without complications (principal)

== ENCOUNTER 2017-07-26 18:01 | Inpatient (IN) | payer BC, MEDICAID ==
[2017-07-26 18:01] VITALS: BMI 25.8
[2017-07-26] MEDS ORDERED: Lactated Ringer's 1,000 ML IVB STA (19:16)
[2017-07-26] MEDS ORDERED: Lactated Ringer's 1,000 ML ONE (19:35)
[2017-07-26 19:57] LABS: BASO % 0.5 % (0.0-2.0); EOS # 0.1 K/uL (0.0-0.7); EOS % 1.4 % (0.0-4.0); HEMOGLOBIN 8.4 g/dL (11.0-16.0); LYMPH # 1.3 K/uL (1.0-4.3); LYMPH % 26.4 % (20.0-40.0); MEAN CELL VOLUME 83.1 fL (81.0-99.0); MEAN CORPUSCULAR HEMOGLOBIN 27.1 pg (27.0-31.0); MEAN CORPUSCULAR HGB CONC 32.6 g/dL (33.0-37.0); MONO # 0.4 K/uL (0.0-0.8); MONO % 9.1 % (0.0-10.0); NEUT % 62.6 % (50.0-75.0); RBC 3.1 Mil/uL (3.80-5.20); RED CELL DISTRIBUTION WIDTH 13.6 % (11.5-14.5); WHITE BLOOD COUNT 4.8 K/uL (4.8-10.8)
[2017-07-26 20:13] LABS: ALB/GLOB RATIO 0.6 (1.0-2.1); ALBUMIN 3.1 g/dL (3.5-5.0); CALCIUM 8.8 mg/dl (8.6-10.4)
[2017-07-26] MEDS ORDERED: Morphine 4 MG/ML VIAL ONE (20:56)
[2017-07-26 21:02] LABS: HCG,QUALITATIVE URINE NEGATIVE (NEGATIVE)
[2017-07-26 21:04] LABS: SQUAMOUS EPITHIAL 4 /hpf (0-5); URINE BACTERIA RARE (<OCC); URINE BILIRUBIN NEGATIVE (NEGATIVE); URINE BLOOD 1+ (NEGATIVE); URINE CLARITY Hazy (Clear); URINE COLOR Yellow (YELLOW); URINE GLUCOSE (UA) NORMAL (Normal); URINE LEUKOCYTE ESTERASE NEG Leu/uL (Negative); URINE PROTEIN 2+ mg/dL (NEGATIVE); URINE UROBILINOGEN NORMAL mg/dL (0.2-1.0)
[2017-07-26 21:15] LABS: BARBITURATES, UR NEGATIVE (NEGATIVE); BENZODIAZEPINES, UR NEGATIVE (NEGATIVE); OPIATES, UR NEGATIVE (NEGATIVE); PHENCYCLIDINE, UR NEGATIVE (NEGATIVE)
--- NOTE | 2017-07-26 21:26 | C.PDOC ---
History Of Present Illness Pt c/o generalized pain. Arthralgias. Time Seen by Provider: 07/26/17 19:09 Chief Complaint (Nursing): Medical Clearance History Per: Patient Onset/Duration Of Symptoms: Days (1) Current Symptoms Are (Timing): Still Present Severity: Moderate Context: SLE Location: Generalized Quality: Pain Reports Recent Trauma: Denies Additional History Per: Prior Records Past Medical History Reviewed: Historical Data, Nursing Documentation, Vital Signs Vital Signs: Last Vital Signs Temp 98.7 F 07/26/17 18:16 Pulse 95 H 07/26/17 18:16 Resp 20 07/26/17 18:16 BP 132/87 07/26/17 18:16 Pulse Ox 98 07/26/17 18:16 - Medical History PMH: Gall Bladder Disease, HTN, Seizures Other PMH: SLE Surgical History: Cholecystectomy - [facility] Procedures FLUOROSCOPY OF BILE DUCTS USING LOW OSMOLAR CONTRAST (05/12/17) RESECTION OF GALLBLADDER, PERCUTANEOUS ENDOSCOPIC APPROACH (05/12/17) Family History: States: Unknown Family Hx - Social History Hx Tobacco Use: No Hx Alcohol Use: No Hx Substance Use: No - Immunization History Hx Tetanus Toxoid Vaccination: No Hx Influenza Vaccination: No Hx Pneumococcal Vaccination: No Review Of Systems Except As Marked, All Systems Reviewed And Found Negative. Constitutional: Positive for: Malaise. Negative for: Fever Cardiovascular: Negative for: Chest Pain Respiratory: Negative for: Cough, Shortness of Breath Gastrointestinal: Negative for: Vomiting, Abdominal Pain, Diarrhea Genitourinary: Negative for: Dysuria Musculoskeletal: Negative for: Neck Pain, Back Pain Skin: Negative for: Rash Neurological: Negative for: Weakness, Numbness, Headache Physical Exam - Physical Exam Appears: Chronically Ill, Other (Uncomfortable in pain) Skin: Normal Color, Warm, Dry Head: Atraumatic, Normacephalic Eye(s): bilateral: PERRL, EOMI Neck: Normal ROM, Supple Cardiovascular: Rhythm Regular Respiratory: Normal Breath Sounds, No Accessory Muscle Use Gastrointestinal/Abdominal: Soft, No Tenderness Back: No CVA Tenderness Extremity: Normal ROM Neurological/Psych: Oriented x3, Normal Speech, Normal Motor, Normal Sensation ED Course And Treatment - Laboratory Results Result Diagrams: 07/26/17 19:54 07/26/17 19:54 Lab Interpretation: Abnormal Interpretation Of Abnormal: Acute renal injury. Anemia. O2 Sat by Pulse Oximetry: 98 Pulse Ox Interpretation: Normal Progress - Interventions Interventions:: Observation, Intravenous fluid - Medications Administered Intravenous: Opiate - Data Reviewed Data Reviewed: Lab, Old records - Continuity of Care Discussed patient case with:: Patient, ED Nurse, On-call PMD-pt unassigned - Patient Plan Patient Plan: Admission Disposition Discussed With : Moises Ruvalcaba Comment: He accepted pt on his service. Doctor Will See Patient In The: Hospital Counseled Patient/Family Regarding: Studies Performed, Diagnosis - Disposition Disposition: HOSPITALIZED Disposition Time: 21:27 Condition: FAIR - Clinical Impression Clinical Impression: Acute renal injury, Anemia, Exacerbation of systemic lupus erythematosus
[2017-07-27] MEDS: Sodium Chloride 0.9% 1,000 ML IV SCH (02:45)
[2017-07-27 09:21] LABS: CALCIUM 8.7 mg/dl (8.6-10.4)
--- NOTE | 2017-07-27 14:55 | CP.PCM.CON ---
History of Present Illness - History of Present Illness History of Present Illness: 36 yr old female with htn, seizure dis, lupus on meds follows with rheum opt is admited with joint pain and muscleaches. no prior hx of ckd or lupus renal disease. no kidney stones no urinary complaints n ostones no sob or chest pain pmh as above complete ros is negative except fro those noted above social x non smoker, no alcohol no drugs labs and meds reviewed vitals reviewed heent normal op moist no jvd s1s2 present no resp distress abd soft nt nd skin nromal no edema ao times 3, n ofnd cooeprative DELGADO/lupushtn/seizure/anemia cr improving, continue iv fluids monitor UOP lytes reviewed continue iv fluids bp stable i have ordered urine studies, renal usg, c3 c4 and dsdna levels continue to monitor Past Patient History - Infectious Disease Hx of Infectious Diseases: None - Past Medical History & Family History Past Medical History?: Yes - Past Social History Smoking Status: Never Smoked - CARDIAC Hx Cardiac Disorders: Yes Hx Hypertension: Yes - PULMONARY Hx Respiratory Disorders: No - NEUROLOGICAL Hx Neurological Disorder: Yes Hx Seizures: Yes (last episode was a year ago) - HEENT Hx HEENT Problems: No - RENAL Hx Chronic Kidney Disease: No - ENDOCRINE/METABOLIC Hx Endocrine Disorders: Yes Hx Systemic Lupus Erythematosus: Yes - HEMATOLOGICAL/ONCOLOGICAL Hx Blood Disorders: No - INTEGUMENTARY Hx Dermatological Problems: No Other/Comment: History of herpes zoster 1 month with treatment - MUSCULOSKELETAL/RHEUMATOLOGICAL Hx Falls: No - GASTROINTESTINAL Hx Gall Bladder Disease: Yes - GENITOURINARY/GYNECOLOGICAL Hx Genitourinary Disorders: No - PSYCHIATRIC Hx Substance Use: No - SURGICAL HISTORY Hx Cholecystectomy: Yes - ANESTHESIA Hx Anesthesia: Yes Hx Anesthesia Reactions: No Hx Malignant Hyperthermia: No Meds Allergies/Adverse Reactions: Allergies Allergy/AdvReac Type Severity Reaction Status Date / Time No Known Allergies Allergy Verified 06/15/17 16:46 - Medications Medications: Current Medications Acetaminophen (Tylenol 325mg Tab) 650 mg PO Q6 PRN PRN Reason: Pain, moderate (4-7) Last Admin: 07/27/17 13:21 Dose: 650 mg Folic Acid (Folic Acid) 1 mg PO DAILY [facility] Last Admin: 07/27/17 09:46 Dose: 1 mg Heparin Sodium (Porcine) (Heparin) 5,000 units SC Q8 [facility] Last Admin: 07/27/17 13:18 Dose: 5,000 units Hydroxychloroquine Sulfate (Plaquenil) 200 mg PO BID [facility] PRN Reason: Protocol Last Admin: 07/27/17 09:46 Dose: 200 mg Sodium Chloride (Sodium Chloride 0.9%) 1,000 mls @ 100 mls/hr IV .Q10H [facility] Last Admin: 07/27/17 02:45 Dose: 100 mls/hr Levetiracetam (Keppra) 750 mg PO BID [facility] Last Admin: 07/27/17 09:46 Dose: 750 mg Valacyclovir HCl (Valtrex) 500 mg PO BID [facility] PRN Reason: Protocol Last Admin: 07/27/17 10:22 Dose: 500 mg Results - Vital Signs Recent Vital Signs: Last Vital Signs Temp 98.7 F 07/27/17 07:00 Pulse 87 07/27/17 07:00 Resp 20 07/27/17 07:00 BP 125/84 07/27/17 07:00 Pulse Ox 98 07/27/17 07:00 - Labs Result Diagrams: 07/26/17 19:54 07/27/17 08:59 Labs: Laboratory Results - last 24 hr 07/26/17 07/26/17 07/26/17 19:54 19:54 20:53 WBC 4.8 RBC 3.10 L Hgb 8.4 L Hct 25.8 L MCV 83.1 MCH 27.1 MCHC 32.6 L RDW 13.6 Plt Count 304 D MPV 9.0 Neut % (Auto) 62.6 Lymph % (Auto) 26.4 [place] % (Auto) 9.1 Eos % (Auto) 1.4 Baso % (Auto) 0.5 Neut # (Auto) 3.0 Lymph # (Auto) 1.3 [place] # (Auto) 0.4 Eos # (Auto) 0.1 Baso # (Auto) 0.0 Sodium 140 Potassium 4.6 Chloride 107 Carbon Dioxide 20 L Anion Gap 18 BUN 40 H Creatinine 2.5 H Est GFR ( Amer) 26 Est GFR (Non-Af Amer) 22 Random Glucose 96 Calcium 8.8 Magnesium 1.6 Total Bilirubin 0.5 AST 39 H ALT 15 Alkaline Phosphatase 79 Total Creatine Kinase 179 H Total Protein 8.1 Albumin 3.1 L Globulin 4.9 H Albumin/Globulin Ratio 0.6 L Urine Color Yellow Urine Clarity Hazy Urine pH 5.0 Ur Specific [place] 1.011 Urine Protein 2+ H Urine Glucose (UA) Normal Urine Ketones Negative Urine Blood 1+ H Urine Nitrate Negative Urine Bilirubin Negative Urine Urobilinogen Normal Ur Leukocyte Esterase Neg Urine WBC (Auto) 7 H Urine RBC (Auto) 11 H Ur Squamous Epith Cells 4 Urine Bacteria Rare Urine HCG, Qual Negative Urine Opiates Screen Urine Methadone Screen Ur Barbiturates Screen Ur Phencyclidine Scrn Ur Amphetamines Screen U Benzodiazepines Scrn U Oth Cocaine Metabols U Cannabinoids Screen 07/26/17 07/27/17 20:53 08:59 WBC RBC Hgb Hct MCV MCH MCHC RDW Plt Count MPV Neut % (Auto) Lymph % (Auto) [place] % (Auto) Eos % (Auto) Baso % (Auto) Neut # (Auto) Lymph # (Auto) [place] # (Auto) Eos # (Auto) Baso # (Auto) Sodium 142 Potassium 4.1 Chloride 112 H Carbon Dioxide 20 L Anion Gap 13 BUN 30 H Creatinine 1.3 H Est GFR ( Amer) 55 Est GFR (Non-Af Amer) 46 Random Glucose 75 Calcium 8.7 Magnesium Total Bilirubin AST ALT Alkaline Phosphatase Total Creatine Kinase Total Protein Albumin Globulin Albumin/Globulin Ratio Urine Color Urine Clarity Urine pH Ur Specific [place] Urine Protein Urine Glucose (UA) Urine Ketones Urine Blood Urine Nitrate Urine Bilirubin Urine Urobilinogen Ur Leukocyte Esterase Urine WBC (Auto) Urine RBC (Auto) Ur Squamous Epith Cells Urine Bacteria Urine HCG, Qual Urine Opiates Screen Negative Urine Methadone Screen Negative Ur Barbiturates Screen Negative Ur Phencyclidine Scrn Negative Ur Amphetamines Screen Negative U Benzodiazepines Scrn Negative U Oth Cocaine Metabols Negative U Cannabinoids Screen Negative
--- NOTE | 2017-07-27 16:10 | CP.PCM.CON ---
History of Present Illness - History of Present Illness History of Present Illness: admitted for exac of Lupus, DELGADO on immunosuppresive rx as out pt hx of recent shingles left flank denies fever , chills Review of Systems - Review of Systems All systems: reviewed and no additional remarkable complaints except - Constitutional Constitutional: As Per HPI - EENT Nose/Mouth/Throat: absent: As Per HPI, Epistaxis, Nasal Congestion, Nasal Discharge, Nasal Obstruction, Nasal Trauma, Nose Pain, Post Nasal Drip, Sinus Pain, Sinus Pressure, Bleeding Gums, Change in Voice, Dental Pain, Dry Mouth, Dysphagia, Halitosis, Hoarsness, Lip Swelling, Mouth Lesions, Mouth Pain, Odynophagia, Sore Throat, Throat Swelling, Tongue Swelling, Facial Pain, Neck Pain, Neck Mass, Other - Breasts Breasts: absent: As Per HPI, Change in Shape, Mass, Pain, Nipple Discharge, Nipple Inversion, Skin Changes, Swelling, Other - Cardiovascular Cardiovascular: absent: As Per HPI, Acrocyanosis, Chest Pain, Chest Pain at Rest , Chest Pain with Activity, Claudication, Diaphoresis, Dyspnea, Dyspnea on Exertion, Edema, Irregular Heart Rhythm, Pain Radiating to Arm/Neck/Jaw, Leg Edema, Leg Ulcers, Lightheadedness, Orthopnea, Palpitations, Paroxysmal Nocturnal Dyspnea, Pedal Edema, Radiating Pain, Rapid Heart Rate, Slow Heart Rate, Syncope, Other - Respiratory Respiratory: absent: As Per HPI, Cough, Dyspnea, Hemoptysis, Dyspnea on Exertion , Wheezing, Snoring, Stridor, Pain on Inspiration, Chest Congestion, Excessive Mucous Production, Change in Mucous Color, Pain with Coughing, Other - Gastrointestinal Gastrointestinal: absent: As Per HPI, Abdominal Pain, Belching, Bloating, Change in Bowel Habits, Change in Stool Character, Coffee Ground Emesis, Constipation, Cramping, Diarrhea, Dyspepsia, Dysphagia, Early Satiety, Excessive Flatus, Fecal Incontinence, Heartburn, Hematemesis, Hematochezia, Loose Stools, Melena, Nausea, Odynophagia, Temesmus, Vomiting, Other - Genitourinary Genitourinary: absent: As Per HPI, Change in Urinary Stream, Difficulty Urinating, Dysuria, Flank Pain, Hematuria, Pyuria, Nocturia, Urinary Incontinence, Urinary Frequency, Urinary Hesitance, Urinary Urgency, Voiding Freq/Small Amts, Freq UTI, Hx Renal/Bladder Calculi, Hx /Renal Surgery, Bladder Distension, Other - Reproductive: Female Reproductive:Female: absent: As Per HPI, Amenorrhea, Amenorrhea/ Control, Currently Menstual, Cycle <21 Days, Cycle >35 Days, Cycle Variable, Menses 1-7 Days, Menses >/= 8 Days, Menses Variable, Cycle > 4 Weeks Between, No Menses for 6 Months, Heavy Menses, Light Menses, Normal Menses, Spotting Between Cycles , S/P Hysterectomy, Menopausal, Post Menopausal, Premenarche, Abnormal Vaginal Bleeding, Dysmenorrhea, Dyspareunia, Genital Lesions, Genital Pruritis, Pelvic Pain, Prolapse Symptoms, Sexual Dysfunction, Vaginal Discharge, Vaginal Dryness , Vaginal Odor, Vaginal Pruritis, Other - Menstruation Menstruation: absent: As Per HPI, Amenorrhea, Amenorrhea/ Control, Currently Menstual, Cycle <21 Days, Cycle >35 Days, Cycle Variable, Menses 1-7 Days, Menses >/= 8 Days, Menses Variable, Cycle > 4 Weeks Between, No Menses for 6 Months, Heavy Menses, Light Menses, Normal Menses, Spotting Between Cycles , S/P Hysterectomy, Menopausal, Post Menopausal, Premenarche, Abnormal Vaginal Bleeding, Dysmenorrhea, Other - Musculoskeletal Musculoskeletal: As Per HPI - Integumentary Integumentary: absent: As Per HPI, Acne, Alopecia, Bleeding Lesions, Change in Hair, Change in Nails, Change in Pigmentation, Changing Lesions, Dry Skin, Erythema, Furuncle, Hirsutism, Lesions, New Lesions, Non-Healing Lesions, Photosensitivity, Pruritus, Rash, Skin Pain, Skin Ulcer, Sores, Striae, Swelling , Unusual Bruising, Wounds, Jaundice, Other - Neurological Neurological: absent: As Per HPI, Abnormal Gait, Abnormal Hearing, Abnormal Movements, Abnormal Speech, Behavioral Changes, Burning Sensations, Confusion, Convulsions, Disequilibrium, Dizziness, Numbness, Focal Weakness, Frequent Falls , Headaches, Lack of Coordination, Loss of Vision, Memory Loss, Paresthesias, Radicular Pain, Restless Legs, Sensory Deficit, Syncope, Tingling, Tremor, Vertigo, Weakness, Other Visual Disturbances, Other - Psychiatric Psychiatric: absent: As Per HPI, Abnormal Sleep Pattern, Anhedonia, Anxiety, Auditory Hallucinations, Behavioral Changes, Change in Appetite, Change in Libido, Confusion, Depression, Difficulty Concentrating, Hallucinations, Homicidal Ideation, Hopelessness, Irritability, Memory Loss, Mood Swings, Panic Attacks, Paranoia, Suicidal Ideation, Visual Hallucinations, Tactile Hallucinations, Other - Endocrine Endocrine: absent: As Per HPI, Change in Body Appearance, Change in Libido, Cold Intolorance, Deepening of Voice, Excessive Sweating, Fatigue, Flushing, Heat Intolorance, Increase in Ring/Shoe/Hat Size, Palpitations, Polydipsia, Polyphagia, Polyuria, Other - Hematologic/Lymphatic Hematologic: absent: As Per HPI, Easy Bleeding, Easy Bruising, Lymphadenopathy, Other Past Patient History - Infectious Disease Hx of Infectious Diseases: None - Past Medical History & Family History Past Medical History?: Yes - Past Social History Smoking Status: Never Smoked - CARDIAC Hx Cardiac Disorders: Yes Hx Hypertension: Yes - PULMONARY Hx Respiratory Disorders: No - NEUROLOGICAL Hx Neurological Disorder: Yes Hx Seizures: Yes (last episode was a year ago) - HEENT Hx HEENT Problems: No - RENAL Hx Chronic Kidney Disease: No - ENDOCRINE/METABOLIC Hx Endocrine Disorders: Yes Hx Systemic Lupus Erythematosus: Yes - HEMATOLOGICAL/ONCOLOGICAL Hx Blood Disorders: No - INTEGUMENTARY Hx Dermatological Problems: No Other/Comment: History of herpes zoster 1 month with treatment - MUSCULOSKELETAL/RHEUMATOLOGICAL Hx Falls: No - GASTROINTESTINAL Hx Gall Bladder Disease: Yes - GENITOURINARY/GYNECOLOGICAL Hx Genitourinary Disorders: No - PSYCHIATRIC Hx Substance Use: No - SURGICAL HISTORY Hx Cholecystectomy: Yes - ANESTHESIA Hx Anesthesia: Yes Hx Anesthesia Reactions: No Hx Malignant Hyperthermia: No Meds Allergies/Adverse Reactions: Allergies Allergy/AdvReac Type Severity Reaction Status Date / Time No Known Allergies Allergy Verified 06/15/17 16:46 - Medications Medications: Current Medications Acetaminophen (Tylenol 325mg Tab) 650 mg PO Q6 PRN PRN Reason: Pain, moderate (4-7) Last Admin: 07/27/17 13:21 Dose: 650 mg Folic Acid (Folic Acid) 1 mg PO DAILY [facility] Last Admin: 07/27/17 09:46 Dose: 1 mg Heparin Sodium (Porcine) (Heparin) 5,000 units SC Q8 [facility] Last Admin: 07/27/17 13:18 Dose: 5,000 units Hydroxychloroquine Sulfate (Plaquenil) 200 mg PO BID [facility] PRN Reason: Protocol Last Admin: 07/27/17 09:46 Dose: 200 mg Sodium Chloride (Sodium Chloride 0.9%) 1,000 mls @ 100 mls/hr IV .Q10H [facility] Last Admin: 07/27/17 02:45 Dose: 100 mls/hr Levetiracetam (Keppra) 750 mg PO BID [facility] Last Admin: 07/27/17 09:46 Dose: 750 mg Valacyclovir HCl (Valtrex) 500 mg PO BID [facility] PRN Reason: Protocol Last Admin: 07/27/17 10:22 Dose: 500 mg Physical Exam - Constitutional Appears: Non-toxic, Chronically Ill - Head Exam Head Exam: ATRAUMATIC, NORMAL INSPECTION, NORMOCEPHALIC - Eye Exam Eye Exam: EOMI, PERRL. absent: Scleral icterus - ENT Exam ENT Exam: Mucous Membranes Dry, Normal External Ear Exam - Neck Exam Neck exam: Negative for: Lymphadenopathy - Respiratory Exam Respiratory Exam: Decreased Breath Sounds, Clear to Auscultation Bilateral - Cardiovascular Exam Cardiovascular Exam: REGULAR RHYTHM, +S1, +S2 - GI/Abdominal Exam GI & Abdominal Exam: Diminished Bowel Sounds, Soft. absent: Tenderness - Rectal Exam Rectal Exam: Deferred - Exam Exam: NORMAL INSPECTION - Extremities Exam Extremities exam: Negative for: pedal edema - Back Exam Back exam: absent: CVA tenderness (L), CVA tenderness (R) - Neurological Exam Neurological exam: Alert, CN II-XII Intact, Oriented x3, Reflexes Normal - Psychiatric Exam Psychiatric exam: Normal Mood - Skin Skin Exam: Dry Results - Vital Signs Recent Vital Signs: Last Vital Signs Temp 98.7 F 07/27/17 07:00 Pulse 87 07/27/17 07:00 Resp 20 07/27/17 07:00 BP 125/84 07/27/17 07:00 Pulse Ox 98 07/27/17 07:00 - Labs Result Diagrams: 07/26/17 19:54 07/27/17 08:59 Labs: Laboratory Results - last 24 hr 07/26/17 07/26/17 07/26/17 19:54 19:54 20:53 WBC 4.8 RBC 3.10 L Hgb 8.4 L Hct 25.8 L MCV 83.1 MCH 27.1 MCHC 32.6 L RDW 13.6 Plt Count 304 D MPV 9.0 Neut % (Auto) 62.6 Lymph % (Auto) 26.4 [place] % (Auto) 9.1 Eos % (Auto) 1.4 Baso % (Auto) 0.5 Neut # (Auto) 3.0 Lymph # (Auto) 1.3 [place] # (Auto) 0.4 Eos # (Auto) 0.1 Baso # (Auto) 0.0 Sodium 140 Potassium 4.6 Chloride 107 Carbon Dioxide 20 L Anion Gap 18 BUN 40 H Creatinine 2.5 H Est GFR ( Amer) 26 Est GFR (Non-Af Amer) 22 Random Glucose 96 Calcium 8.8 Magnesium 1.6 Total Bilirubin 0.5 AST 39 H ALT 15 Alkaline Phosphatase 79 Total Creatine Kinase 179 H Total Protein 8.1 Albumin 3.1 L Globulin 4.9 H Albumin/Globulin Ratio 0.6 L Urine Color Yellow Urine Clarity Hazy Urine pH 5.0 Ur Specific [place] 1.011 Urine Protein 2+ H Urine Glucose (UA) Normal Urine Ketones Negative Urine Blood 1+ H Urine Nitrate Negative Urine Bilirubin Negative Urine Urobilinogen Normal Ur Leukocyte Esterase Neg Urine WBC (Auto) 7 H Urine RBC (Auto) 11 H Ur Squamous Epith Cells 4 Urine Bacteria Rare Urine HCG, Qual Negative Urine Opiates Screen Urine Methadone Screen Ur Barbiturates Screen Ur Phencyclidine Scrn Ur Amphetamines Screen U Benzodiazepines Scrn U Oth Cocaine Metabols U Cannabinoids Screen 07/26/17 07/27/17 20:53 08:59 WBC RBC Hgb Hct MCV MCH MCHC RDW Plt Count MPV Neut % (Auto) Lymph % (Auto) [place] % (Auto) Eos % (Auto) Baso % (Auto) Neut # (Auto) Lymph # (Auto) [place] # (Auto) Eos # (Auto) Baso # (Auto) Sodium 142 Potassium 4.1 Chloride 112 H Carbon Dioxide 20 L Anion Gap 13 BUN 30 H Creatinine 1.3 H Est GFR ( Amer) 55 Est GFR (Non-Af Amer) 46 Random Glucose 75 Calcium 8.7 Magnesium Total Bilirubin AST ALT Alkaline Phosphatase Total Creatine Kinase Total Protein Albumin Globulin Albumin/Globulin Ratio Urine Color Urine Clarity Urine pH Ur Specific [place] Urine Protein Urine Glucose (UA) Urine Ketones Urine Blood Urine Nitrate Urine Bilirubin Urine Urobilinogen Ur Leukocyte Esterase Urine WBC (Auto) Urine RBC (Auto) Ur Squamous Epith Cells Urine Bacteria Urine HCG, Qual Urine Opiates Screen Negative Urine Methadone Screen Negative Ur Barbiturates Screen Negative Ur Phencyclidine Scrn Negative Ur Amphetamines Screen Negative U Benzodiazepines Scrn Negative U Oth Cocaine Metabols Negative U Cannabinoids Screen Negative Assessment & Plan (1) Acute renal injury Status: Acute (2) Anemia Status: Acute (3) Exacerbation of systemic lupus erythematosus Status: Acute (4) Shingles Status: Acute - Assessment and Plan (Free Text) Assessment: Acute renal injury, Anemia, Exacerbation of systemic lupus erythematosus cont supportive rx renal eval
[2017-07-27 16:59] LABS: COMPLEMENT C4 8.4 mg/dL (14.0-44.0)
[2017-07-27 17:00] LABS: COMPLEMENT C3 < 40.0 mg/dL (88.0-165.0)
--- NOTE | 2017-07-27 17:26 | CP.PCM.HP ---
History of Present Illness - History of Present Illness History of Present Illness: History of Present Illness: 36 yr old female with htn, seizure dis, lupus on meds follows with rheum opt is admited with joint pain and muscleaches. no prior hx of ckd or lupus renal disease. no kidney stones no urinary complaints n ostones no sob or chest pain pmh as above complete ros is negative except fro those noted above social x non smoker, no alcohol no drugs labs and meds reviewed vitals reviewed heent normal op moist no jvd s1s2 present no resp distress abd soft nt nd skin nromal no edema ao times 3, n ofnd cooeprative DELGADO/lupushtn/seizure/anemia cr improving, continue iv fluids monitor UOP lytes reviewed continue iv fluids bp stable i have ordered urine studies, renal usg, c3 c4 and dsdna levels continue to monitor Present on Admission - Present on Admission Any Indicators Present on Admission: No Past Patient History - Infectious Disease Hx of Infectious Diseases: None - Past Medical History & Family History Past Medical History?: Yes - Past Social History Smoking Status: Never Smoked - CARDIAC Hx Cardiac Disorders: Yes Hx Hypertension: Yes - PULMONARY Hx Respiratory Disorders: No - NEUROLOGICAL Hx Neurological Disorder: Yes Hx Seizures: Yes (last episode was a year ago) - HEENT Hx HEENT Problems: No - RENAL Hx Chronic Kidney Disease: No - ENDOCRINE/METABOLIC Hx Endocrine Disorders: Yes Hx Systemic Lupus Erythematosus: Yes - HEMATOLOGICAL/ONCOLOGICAL Hx Blood Disorders: No - INTEGUMENTARY Hx Dermatological Problems: No Other/Comment: History of herpes zoster 1 month with treatment - MUSCULOSKELETAL/RHEUMATOLOGICAL Hx Falls: No - GASTROINTESTINAL Hx Gall Bladder Disease: Yes - GENITOURINARY/GYNECOLOGICAL Hx Genitourinary Disorders: No - PSYCHIATRIC Hx Substance Use: No - SURGICAL HISTORY Hx Cholecystectomy: Yes - ANESTHESIA Hx Anesthesia: Yes Hx Anesthesia Reactions: No Hx Malignant Hyperthermia: No Meds Allergies/Adverse Reactions: Allergies Allergy/AdvReac Type Severity Reaction Status Date / Time No Known Allergies Allergy Verified 06/15/17 16:46 Results - Vital Signs Recent Vital Signs: Last Vital Signs Temp 99.0 F 07/27/17 15:34 Pulse 95 H 07/27/17 15:34 Resp 18 07/27/17 15:34 BP 120/87 07/27/17 15:34 Pulse Ox 97 07/27/17 15:34 - Labs Result Diagrams: 07/26/17 19:54 07/27/17 08:59 Labs: Laboratory Results - last 24 hr 07/26/17 07/26/17 07/26/17 19:54 19:54 20:53 WBC 4.8 RBC 3.10 L Hgb 8.4 L Hct 25.8 L MCV 83.1 MCH 27.1 MCHC 32.6 L RDW 13.6 Plt Count 304 D MPV 9.0 Neut % (Auto) 62.6 Lymph % (Auto) 26.4 [place] % (Auto) 9.1 Eos % (Auto) 1.4 Baso % (Auto) 0.5 Neut # (Auto) 3.0 Lymph # (Auto) 1.3 [place] # (Auto) 0.4 Eos # (Auto) 0.1 Baso # (Auto) 0.0 Sodium 140 Potassium 4.6 Chloride 107 Carbon Dioxide 20 L Anion Gap 18 BUN 40 H Creatinine 2.5 H Est GFR ( Amer) 26 Est GFR (Non-Af Amer) 22 Random Glucose 96 Calcium 8.8 Magnesium 1.6 Total Bilirubin 0.5 AST 39 H ALT 15 Alkaline Phosphatase 79 Total Creatine Kinase 179 H C-React Prot High Sens Total Protein 8.1 Albumin 3.1 L Globulin 4.9 H Albumin/Globulin Ratio 0.6 L Urine Color Yellow Urine Clarity Hazy Urine pH 5.0 Ur Specific [place] 1.011 Urine Protein 2+ H Urine Glucose (UA) Normal Urine Ketones Negative Urine Blood 1+ H Urine Nitrate Negative Urine Bilirubin Negative Urine Urobilinogen Normal Ur Leukocyte Esterase Neg Urine WBC (Auto) 7 H Urine RBC (Auto) 11 H Ur Squamous Epith Cells 4 Urine Bacteria Rare Urine HCG, Qual Negative Urine Opiates Screen Urine Methadone Screen Ur Barbiturates Screen Ur Phencyclidine Scrn Ur Amphetamines Screen U Benzodiazepines Scrn U Oth Cocaine Metabols U Cannabinoids Screen Complement C3 Complement C4 07/26/17 07/27/17 07/27/17 20:53 08:59 16:33 WBC RBC Hgb Hct MCV MCH MCHC RDW Plt Count MPV Neut % (Auto) Lymph % (Auto) [place] % (Auto) Eos % (Auto) Baso % (Auto) Neut # (Auto) Lymph # (Auto) [place] # (Auto) Eos # (Auto) Baso # (Auto) Sodium 142 Potassium 4.1 Chloride 112 H Carbon Dioxide 20 L Anion Gap 13 BUN 30 H Creatinine 1.3 H Est GFR ( Amer) 55 Est GFR (Non-Af Amer) 46 Random Glucose 75 Calcium 8.7 Magnesium Total Bilirubin AST ALT Alkaline Phosphatase Total Creatine Kinase C-React Prot High Sens > 15.00 H Total Protein Albumin Globulin Albumin/Globulin Ratio Urine Color Urine Clarity Urine pH Ur Specific [place] Urine Protein Urine Glucose (UA) Urine Ketones Urine Blood Urine Nitrate Urine Bilirubin Urine Urobilinogen Ur Leukocyte Esterase Urine WBC (Auto) Urine RBC (Auto) Ur Squamous Epith Cells Urine Bacteria Urine HCG, Qual Urine Opiates Screen Negative Urine Methadone Screen Negative Ur Barbiturates Screen Negative Ur Phencyclidine Scrn Negative Ur Amphetamines Screen Negative U Benzodiazepines Scrn Negative U Oth Cocaine Metabols Negative U Cannabinoids Screen Negative Complement C3 < 40.0 L Complement C4 8.4 L
--- NOTE | 2017-07-27 17:28 | CP.PCM.PN ---
Subjective - Date & Time of Evaluation Date of Evaluation: 07/27/17 Time of Evaluation: 20:00 - Subjective Subjective: admitted for exac of Lupus, DELGADO on immunosuppresive rx as out pt hx of recent shingles left flank denies fever , chills Objective - Vital Signs/Intake and Output Vital Signs (last 24 hours): Temp Pulse Resp BP Pulse Ox 99.0 F 95 H 18 120/87 97 07/27/17 15:34 07/27/17 15:34 07/27/17 15:34 07/27/17 15:34 07/27/17 15:34 Intake and Output: 07/27/17 07/27/17 06:59 18:59 Intake Total 1200 Balance 1200 - Medications Medications: Current Medications Acetaminophen (Tylenol 325mg Tab) 650 mg PO Q6 PRN PRN Reason: Pain, moderate (4-7) Last Admin: 07/27/17 13:21 Dose: 650 mg Folic Acid (Folic Acid) 1 mg PO DAILY [facility] Last Admin: 07/27/17 09:46 Dose: 1 mg Heparin Sodium (Porcine) (Heparin) 5,000 units SC Q8 [facility] Last Admin: 07/27/17 13:18 Dose: 5,000 units Hydroxychloroquine Sulfate (Plaquenil) 200 mg PO BID [facility] PRN Reason: Protocol Last Admin: 07/27/17 09:46 Dose: 200 mg Sodium Chloride (Sodium Chloride 0.9%) 1,000 mls @ 100 mls/hr IV .Q10H [facility] Last Admin: 07/27/17 02:45 Dose: 100 mls/hr Levetiracetam (Keppra) 750 mg PO BID [facility] Last Admin: 07/27/17 09:46 Dose: 750 mg Valacyclovir HCl (Valtrex) 500 mg PO BID [facility] PRN Reason: Protocol Last Admin: 07/27/17 10:22 Dose: 500 mg - Labs Labs: 07/26/17 19:54 07/27/17 08:59
[2017-07-27 18:43] LABS: ANTI SREPTOLYSIN O NEGATIVE (NEGATIVE)
[2017-07-27 19:10] LABS: SQUAMOUS EPITHIAL 8 /hpf (0-5); URINE BACTERIA RARE (<OCC); URINE BILIRUBIN NEGATIVE (NEGATIVE); URINE BLOOD 1+ (NEGATIVE); URINE CLARITY Hazy (Clear); URINE COLOR Yellow (YELLOW); URINE GLUCOSE (UA) NORMAL (Normal); URINE LEUKOCYTE ESTERASE TRACE Leu/uL (Negative); URINE PROTEIN 2+ mg/dL (NEGATIVE); URINE UROBILINOGEN NORMAL mg/dL (0.2-1.0)
--- NOTE | 2017-07-27 22:16 | CP.PCM.CON ---
History of Present Illness - History of Present Illness History of Present Illness: 36 year old female with a history of SLE on immunosuppression, presenting with worsening joint pain secondary to SLE flair, with anemia. The patient is unaware of having blood problems in the past. She does note her periods was heavy last month but denies further abnormal bleeding and bruising. She denies fevers and chills. She does note to fatigue but denies chest pain and shortness of breath. She has never required a blood transfusion. Past medical history: SLE Past surgical history: Cholecystectomy Family history: Denies hematologic and oncologic problems Social history: Denies tobacco, alcohol, and illicit drug use Allergies: NKA Review of systems: All remaining review of systems including HEENT, cardiovascular, respiratory, gastrointestinal, genitourinary, musculoskeletal, dermatologic, neurologic, and psychiatric are negative unless mentioned in the HPI. Past Patient History - Infectious Disease Hx of Infectious Diseases: None - Past Medical History & Family History Past Medical History?: Yes - Past Social History Smoking Status: Never Smoked - CARDIAC Hx Cardiac Disorders: Yes Hx Hypertension: Yes - PULMONARY Hx Respiratory Disorders: No - NEUROLOGICAL Hx Neurological Disorder: Yes Hx Seizures: Yes (last episode was a year ago) - HEENT Hx HEENT Problems: No - RENAL Hx Chronic Kidney Disease: No - ENDOCRINE/METABOLIC Hx Endocrine Disorders: Yes Hx Systemic Lupus Erythematosus: Yes - HEMATOLOGICAL/ONCOLOGICAL Hx Blood Disorders: No - INTEGUMENTARY Hx Dermatological Problems: No Other/Comment: History of herpes zoster 1 month with treatment - MUSCULOSKELETAL/RHEUMATOLOGICAL Hx Falls: No - GASTROINTESTINAL Hx Gall Bladder Disease: Yes - GENITOURINARY/GYNECOLOGICAL Hx Genitourinary Disorders: No - PSYCHIATRIC Hx Substance Use: No - SURGICAL HISTORY Hx Cholecystectomy: Yes - ANESTHESIA Hx Anesthesia: Yes Hx Anesthesia Reactions: No Hx Malignant Hyperthermia: No Meds Allergies/Adverse Reactions: Allergies Allergy/AdvReac Type Severity Reaction Status Date / Time No Known Allergies Allergy Verified 06/15/17 16:46 - Medications Medications: Current Medications Acetaminophen (Tylenol 325mg Tab) 650 mg PO Q6 PRN PRN Reason: Pain, moderate (4-7) Last Admin: 07/27/17 13:21 Dose: 650 mg Folic Acid (Folic Acid) 1 mg PO DAILY [facility] Last Admin: 07/27/17 09:46 Dose: 1 mg Heparin Sodium (Porcine) (Heparin) 5,000 units SC Q8 [facility] Last Admin: 07/27/17 21:28 Dose: 5,000 units Hydroxychloroquine Sulfate (Plaquenil) 200 mg PO BID [facility] PRN Reason: Protocol Last Admin: 07/27/17 18:02 Dose: 200 mg Sodium Chloride (Sodium Chloride 0.9%) 1,000 mls @ 100 mls/hr IV .Q10H [facility] Last Admin: 07/27/17 02:45 Dose: 100 mls/hr Levetiracetam (Keppra) 750 mg PO BID [facility] Last Admin: 07/27/17 18:02 Dose: 750 mg Valacyclovir HCl (Valtrex) 500 mg PO BID [facility] PRN Reason: Protocol Last Admin: 07/27/17 18:02 Dose: 500 mg Physical Exam - Head Exam Head Exam: ATRAUMATIC - Eye Exam Eye Exam: Normal appearance - ENT Exam ENT Exam: Mucous Membranes Dry - Respiratory Exam Respiratory Exam: NORMAL BREATHING PATTERN - Cardiovascular Exam Cardiovascular Exam: +S1, +S2 - GI/Abdominal Exam GI & Abdominal Exam: Normal Bowel Sounds Results - Vital Signs Recent Vital Signs: Last Vital Signs Temp 99.0 F 07/27/17 15:34 Pulse 95 H 07/27/17 15:34 Resp 18 07/27/17 15:34 BP 120/87 07/27/17 15:34 Pulse Ox 97 07/27/17 15:34 - Labs Result Diagrams: 07/28/17 12:00 07/28/17 12:00 Labs: Laboratory Results - last 24 hr 07/27/17 07/27/17 07/27/17 08:59 16:33 16:33 ESR Sodium 142 Potassium 4.1 Chloride 112 H Carbon Dioxide 20 L Anion Gap 13 BUN 30 H Creatinine 1.3 H Est GFR ( Amer) 55 Est GFR (Non-Af Amer) 46 Random Glucose 75 Calcium 8.7 C-React Prot High Sens > 15.00 H Urine Color Urine Clarity Urine pH Ur Specific [place] Urine Protein Urine Glucose (UA) Urine Ketones Urine Blood Urine Nitrate Urine Bilirubin Urine Urobilinogen Ur Leukocyte Esterase Urine WBC (Auto) Urine RBC (Auto) Ur Squamous Epith Cells Urine Bacteria Ur Random Creatinine U Random Total Protein Complement C3 < 40.0 L Complement C4 8.4 L Anti-Staphylolysin O Negative 07/27/17 07/27/17 07/27/17 16:33 18:59 18:59 ESR 77 H Sodium Potassium Chloride Carbon Dioxide Anion Gap BUN Creatinine Est GFR ( Amer) Est GFR (Non-Af Amer) Random Glucose Calcium C-React Prot High Sens Urine Color Yellow Urine Clarity Hazy Urine pH 6.0 Ur Specific [place] 1.010 Urine Protein 2+ H Urine Glucose (UA) Normal Urine Ketones Negative Urine Blood 1+ H Urine Nitrate Negative Urine Bilirubin Negative Urine Urobilinogen Normal Ur Leukocyte Esterase Trace Urine WBC (Auto) 7 H Urine RBC (Auto) 7 H Ur Squamous Epith Cells 8 H Urine Bacteria Rare Ur Random Creatinine 52.4 U Random Total Protein Complement C3 Complement C4 Anti-Staphylolysin O 07/27/17 19:41 ESR Sodium Potassium Chloride Carbon Dioxide Anion Gap BUN Creatinine Est GFR ( Amer) Est GFR (Non-Af Amer) Random Glucose Calcium C-React Prot High Sens Urine Color Urine Clarity Urine pH Ur Specific [place] Urine Protein Urine Glucose (UA) Urine Ketones Urine Blood Urine Nitrate Urine Bilirubin Urine Urobilinogen Ur Leukocyte Esterase Urine WBC (Auto) Urine RBC (Auto) Ur Squamous Epith Cells Urine Bacteria Ur Random Creatinine U Random Total Protein 97.0 H Complement C3 Complement C4 Anti-Staphylolysin O Assessment & Plan (1) Anemia Assessment and Plan: will check retic count, b12, folate, ferritin to further characterize likely chronic disease from SLE and bone marrow suppression from immunosuppression meds. Thank you for this interesting consult. Status: Acute
[2017-07-28] MEDS: Sodium Chloride 0.9% 1,000 ML IV SCH ×2 (05:04→12:23)
[2017-07-28 07:42] LABS: FOLATE > 20.0 ng/mL
[2017-07-28 09:49] LABS: HEPATITIS B SURFACE AG Negative (NEGATIVE)
[2017-07-28 09:54] LABS: HEPATITIS A IGM NEGATIVE (NEGATIVE); HEPATITIS B CORE AB NEGATIVE (NEGATIVE)
[2017-07-28 10:05] LABS: HEPATITIS C ANTIBODY NEGATIVE (NEGATIVE)
--- NOTE | 2017-07-28 11:01 | US ---
Renal ultrasound History: Acute renal insufficiency. History of lupus. Comparison: None available. Technique: Real-time sonography was performed through the kidneys. Findings: Right kidney: 12.0 x 5.0 x 5.3 centimeters. Mild increased echogenicity of the renal parenchymal cortex suggestive for medical renal disease. Clinical correlation. No calculi or hydronephrosis. Left Kidney: 11.2 x 6.5 x 7.4 centimeters. Mild increased echogenicity of the renal parenchymal cortex suggestive for medical renal disease. Clinical correlation. No calculi or hydronephrosis. Visualized aorta is grossly preserved. Underdistended urinary bladder limits evaluation. Impression: Mild increased echogenicity of the bilateral renal parenchymal cortices which may represent mild medical renal disease. Clinical correlation.
--- NOTE | 2017-07-28 11:31 | CP.PCM.PN ---
Subjective - Date & Time of Evaluation Date of Evaluation: 07/28/17 Time of Evaluation: 08:00 - Subjective Subjective: C/O PAIN ALL OVER AFEB ALERT Objective - Vital Signs/Intake and Output Vital Signs (last 24 hours): Temp Pulse Resp BP Pulse Ox 98.3 F 83 18 144/92 H 96 07/28/17 07:00 07/28/17 07:00 07/28/17 07:00 07/28/17 07:00 07/28/17 07:00 Intake and Output: 07/28/17 07/28/17 06:59 18:59 Intake Total 2079 Balance 2079 - Medications Medications: Current Medications Acetaminophen (Tylenol 325mg Tab) 650 mg PO Q6 PRN PRN Reason: Pain, moderate (4-7) Last Admin: 07/27/17 13:21 Dose: 650 mg Folic Acid (Folic Acid) 1 mg PO DAILY [facility] Last Admin: 07/28/17 09:27 Dose: 1 mg Heparin Sodium (Porcine) (Heparin) 5,000 units SC Q8 [facility] Last Admin: 07/28/17 05:22 Dose: 5,000 units Hydroxychloroquine Sulfate (Plaquenil) 200 mg PO BID [facility] PRN Reason: Protocol Last Admin: 07/28/17 09:29 Dose: 200 mg Sodium Chloride (Sodium Chloride 0.9%) 1,000 mls @ 100 mls/hr IV .Q10H [facility] Last Admin: 07/28/17 05:04 Dose: Not Given Levetiracetam (Keppra) 750 mg PO BID [facility] Last Admin: 07/28/17 09:27 Dose: 750 mg Valacyclovir HCl (Valtrex) 500 mg PO BID [facility] PRN Reason: Protocol Last Admin: 07/28/17 09:29 Dose: 500 mg - Labs Labs: 07/26/17 19:54 07/27/17 08:59 - Constitutional Appears: Non-toxic, Chronically Ill - Head Exam Head Exam: NORMOCEPHALIC - Eye Exam Eye Exam: PERRL - ENT Exam ENT Exam: Mucous Membranes Dry - Neck Exam Neck Exam: absent: Lymphadenopathy - Respiratory Exam Respiratory Exam: Decreased Breath Sounds - Cardiovascular Exam Cardiovascular Exam: REGULAR RHYTHM - GI/Abdominal Exam GI & Abdominal Exam: Distended Assessment and Plan (1) Acute renal injury Status: Acute (2) Anemia Status: Acute (3) Exacerbation of systemic lupus erythematosus Status: Acute (4) Shingles Status: Acute
[2017-07-28 12:13] LABS: EOS % 0.9 % (0.0-4.0); HEMOGLOBIN 8.7 g/dL (11.0-16.0); LYMPH % 32.2 % (20.0-40.0); MEAN CELL VOLUME 83.6 fL (81.0-99.0); MEAN CORPUSCULAR HEMOGLOBIN 27.8 pg (27.0-31.0); MEAN CORPUSCULAR HGB CONC 33.3 g/dL (33.0-37.0); MEAN PLATELET VOLUME 9.2 fL (7.2-11.7); MONO # 0.3 K/uL (0.0-0.8); MONO % 9.6 % (0.0-10.0); NEUT # 1.7 K/uL (1.8-7.0); NEUT % 56.3 % (50.0-75.0); NRBC % 0.3 % (0.0-2.0); RBC 3.14 Mil/uL (3.80-5.20); RED CELL DISTRIBUTION WIDTH 13.7 % (11.5-14.5)
[2017-07-28 12:28] LABS: BLOOD UREA NITROGEN 13 mg/dL (7-17); CALCIUM 8.4 mg/dl (8.6-10.4); GFR AFRICAN-AMERICAN > 60; GFR NON-AFRICAN AMERICAN > 60
[2017-07-28] MEDS: Oxycodone/Acetaminophen 5/325 mg Tab PO PRN ×2 (14:17→20:48)
[2017-07-28 14:56] LABS: ANA PATTERN HOMOGENOUS
--- NOTE | 2017-07-28 15:37 | CP.PCM.PN ---
Subjective - Date & Time of Evaluation Date of Evaluation: 07/28/17 Time of Evaluation: 15:29 - Subjective Subjective: Nephrology Consultation Note Assessment: Stable Acute Kidney Injury (N17.9) ? 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 resolved DELGADO Hypertension control with meds as ordered. 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 Explained possibility in future of worsening of renal parameters (such as proteinuria or serum cr rise) and will need evaluation with kidney biopsy and different treatment with immunosuppression in that case. she will need close renal follow up heme ID and rheum following. Dose meds/antibiotics for GFR >60. Glycemic control Further work up for as per primary team Thanks for allowing me to participate in care of your patient. Will follow patient with you. Please call if any Qs Dr Denzel Cruz Office: [phone] Subjective: Noted events overnight. Patients feels sick with diffuse joint pain. Denies chest pain, palpitation, shortness of breath, leg swelling. All other negative Hx of SLE x 12 years Physical Examination: General Appearance: uncomfortable, in no acute respiratory distress, co- operative . Vitals reviewed and noted as below Head; Atraumatic, normocephalic ENT: no ulcers no thrush. Tongue is midline. Oropharynx: no rash or ulcers. EYES: Pupils are equal, round and reactive to light accommodation. Eye muscles and extraocular movement intact. Sclera is anicteric. Neck; supple no lymphadenopathy, no thyromegaly or bruit Lungs: Normal respiratory rate/effort. Breath sounds bilateral equal and clear Heart: Normal rate. s1s2 normal. No rub or gallop. Extremities: no edema. No varicose veins Neurological: Patient is alert, awake and oriented to person, place and time. No focal deficit. Strength bilateral appropriate and equal Skin: Warm and dry. Normal turgor. No rash. Palpitation: Normal elasticity for age. shingles rash resolved Abdomen: Abdomen is soft. Bowel sounds +. There is no abdominal tenderness, no guarding/rigidity no organomegaly Psych: normal insight and normal affect/mood MSK: Digits and nails normal, no deformity. diffuse arthralgia + : kidney or bladder not palpable Labs/imaging reviewed. Past medical history, past surgical history, family history, social history, allergy reviewed and noted as below Family hx: no hx of CKD. Rest non-contributory renal sono: mildly echogenic kidneys C3<40 c4: 8 Objective - Vital Signs/Intake and Output Vital Signs (last 24 hours): Temp Pulse Resp BP Pulse Ox 98.3 F 94 H 18 128/86 96 07/28/17 07:00 07/28/17 14:15 07/28/17 07:00 07/28/17 14:15 07/28/17 07:00 Intake and Output: 07/28/17 07/28/17 06:59 18:59 Intake Total 2079 Balance 2079 - Medications Medications: Current Medications Acetaminophen (Tylenol 325mg Tab) 650 mg PO Q6 PRN PRN Reason: Pain, moderate (4-7) Last Admin: 07/27/17 13:21 Dose: 650 mg Folic Acid (Folic Acid) 1 mg PO DAILY [facility] Last Admin: 07/28/17 09:27 Dose: 1 mg Heparin Sodium (Porcine) (Heparin) 5,000 units SC Q8 [facility] Last Admin: 07/28/17 14:16 Dose: 5,000 units Hydroxychloroquine Sulfate (Plaquenil) 200 mg PO BID [facility] PRN Reason: Protocol Last Admin: 07/28/17 09:29 Dose: 200 mg Sodium Chloride (Sodium Chloride 0.9%) 1,000 mls @ 100 mls/hr IV .Q10H [facility] Last Admin: 07/28/17 12:23 Dose: 100 mls/hr Levetiracetam (Keppra) 750 mg PO BID [facility] Last Admin: 07/28/17 09:27 Dose: 750 mg Oxycodone/Acetaminophen (Percocet 5/325 Mg Tab) 1 tab PO Q6H PRN PRN Reason: Pain, severe (8-10) Stop: 07/31/17 13:39 Last Admin: 07/28/17 14:17 Dose: 1 tab Valacyclovir HCl (Valtrex) 500 mg PO BID [facility] PRN Reason: Protocol Last Admin: 07/28/17 09:29 Dose: 500 mg - Labs Labs: 07/28/17 12:00 07/28/17 12:00
[2017-07-28 15:58] VITALS: RESP 20
--- NOTE | 2017-07-28 21:36 | CP.PCM.PN ---
Subjective - Date & Time of Evaluation Date of Evaluation: 07/28/17 Time of Evaluation: 20:00 - Subjective Subjective: Has pain in joints. Objective - Vital Signs/Intake and Output Vital Signs (last 24 hours): Temp Pulse Resp BP Pulse Ox 98.6 F 96 H 20 129/80 100 07/28/17 15:57 07/28/17 15:57 07/28/17 15:57 07/28/17 15:57 07/28/17 15:57 Intake and Output: 07/28/17 07/29/17 18:59 06:59 Intake Total 1000 Balance 1000 - Medications Medications: Current Medications Acetaminophen (Tylenol 325mg Tab) 650 mg PO Q6 PRN PRN Reason: Pain, moderate (4-7) Last Admin: 07/27/17 13:21 Dose: 650 mg Folic Acid (Folic Acid) 1 mg PO DAILY [facility] Last Admin: 07/28/17 09:27 Dose: 1 mg Heparin Sodium (Porcine) (Heparin) 5,000 units SC Q8 [facility] Last Admin: 07/28/17 14:16 Dose: 5,000 units Hydroxychloroquine Sulfate (Plaquenil) 200 mg PO BID [facility] PRN Reason: Protocol Last Admin: 07/28/17 17:37 Dose: 200 mg Levetiracetam (Keppra) 750 mg PO BID [facility] Last Admin: 07/28/17 17:37 Dose: 750 mg Lisinopril (Zestril) 10 mg PO DAILY [facility] Last Admin: 07/28/17 17:37 Dose: 10 mg Oxycodone/Acetaminophen (Percocet 5/325 Mg Tab) 1 tab PO Q6H PRN PRN Reason: Pain, severe (8-10) Stop: 07/31/17 13:39 Last Admin: 07/28/17 20:48 Dose: 1 tab Valacyclovir HCl (Valtrex) 500 mg PO BID [facility] PRN Reason: Protocol Last Admin: 07/28/17 17:36 Dose: 500 mg - Labs Labs: 07/28/17 12:00 07/28/17 12:00 - Head Exam Head Exam: ATRAUMATIC - Eye Exam Eye Exam: Normal appearance - ENT Exam ENT Exam: Mucous Membranes Dry - Respiratory Exam Respiratory Exam: NORMAL BREATHING PATTERN - Cardiovascular Exam Cardiovascular Exam: +S1, +S2 - GI/Abdominal Exam GI & Abdominal Exam: Normal Bowel Sounds Assessment and Plan (1) Anemia Assessment & Plan: hypoproliferative erythroid response likely from anemia of chronic disease and immunosuppressive meds on bone marrow Status: Acute
--- NOTE | 2017-07-28 23:46 | CP.PCM.PN ---
Objective - Vital Signs/Intake and Output Vital Signs (last 24 hours): Temp Pulse Resp BP Pulse Ox 98.6 F 96 H 20 129/80 100 07/28/17 15:57 07/28/17 15:57 07/28/17 15:57 07/28/17 15:57 07/28/17 15:57 Intake and Output: 07/28/17 07/29/17 18:59 06:59 Intake Total 1000 Balance 1000 - Medications Medications: Current Medications Acetaminophen (Tylenol 325mg Tab) 650 mg PO Q6 PRN PRN Reason: Pain, moderate (4-7) Last Admin: 07/27/17 13:21 Dose: 650 mg Folic Acid (Folic Acid) 1 mg PO DAILY [facility] Last Admin: 07/28/17 09:27 Dose: 1 mg Heparin Sodium (Porcine) (Heparin) 5,000 units SC Q8 [facility] Last Admin: 07/28/17 22:45 Dose: 5,000 units Hydroxychloroquine Sulfate (Plaquenil) 200 mg PO BID [facility] PRN Reason: Protocol Last Admin: 07/28/17 17:37 Dose: 200 mg Levetiracetam (Keppra) 750 mg PO BID [facility] Last Admin: 07/28/17 17:37 Dose: 750 mg Lisinopril (Zestril) 10 mg PO DAILY [facility] Last Admin: 07/28/17 17:37 Dose: 10 mg Oxycodone/Acetaminophen (Percocet 5/325 Mg Tab) 1 tab PO Q6H PRN PRN Reason: Pain, severe (8-10) Stop: 07/31/17 13:39 Last Admin: 07/28/17 20:48 Dose: 1 tab Valacyclovir HCl (Valtrex) 500 mg PO BID [facility] PRN Reason: Protocol Last Admin: 07/28/17 17:36 Dose: 500 mg - Labs Labs: 07/28/17 12:00 07/28/17 12:00
[2017-07-29] MEDS: Oxycodone/Acetaminophen 5/325 mg Tab PO PRN ×2 (03:23→10:40)
[2017-07-29] MEDS ORDERED: Pneumococcal 23-Valent Vaccine IM ONE (10:00)
--- NOTE | 2017-07-29 11:31 | CP.PCM.PN ---
Subjective - Date & Time of Evaluation Date of Evaluation: 07/29/17 Time of Evaluation: 08:00 - Subjective Subjective: cultures neg c/o pain Objective - Vital Signs/Intake and Output Vital Signs (last 24 hours): Temp Pulse Resp BP Pulse Ox 98.2 F 98 H 20 123/84 97 07/29/17 07:00 07/29/17 10:39 07/29/17 07:00 07/29/17 10:39 07/29/17 07:00 Intake and Output: 07/29/17 07/29/17 06:59 18:59 Intake Total 200 Balance 200 - Medications Medications: Current Medications Acetaminophen (Tylenol 325mg Tab) 650 mg PO Q6 PRN PRN Reason: Pain, moderate (4-7) Last Admin: 07/27/17 13:21 Dose: 650 mg Folic Acid (Folic Acid) 1 mg PO DAILY [facility] Last Admin: 07/29/17 10:40 Dose: 1 mg Heparin Sodium (Porcine) (Heparin) 5,000 units SC Q8 [facility] Last Admin: 07/29/17 05:35 Dose: 5,000 units Hydroxychloroquine Sulfate (Plaquenil) 200 mg PO BID [facility] PRN Reason: Protocol Last Admin: 07/29/17 10:42 Dose: 200 mg Levetiracetam (Keppra) 750 mg PO BID [facility] Last Admin: 07/29/17 10:42 Dose: 750 mg Lisinopril (Zestril) 10 mg PO DAILY [facility] Last Admin: 07/29/17 10:42 Dose: 10 mg Oxycodone/Acetaminophen (Percocet 5/325 Mg Tab) 1 tab PO Q6H PRN PRN Reason: Pain, severe (8-10) Stop: 07/31/17 13:39 Last Admin: 07/29/17 10:40 Dose: 1 tab Valacyclovir HCl (Valtrex) 500 mg PO BID [facility] PRN Reason: Protocol Last Admin: 07/29/17 10:44 Dose: 500 mg - Labs Labs: 07/28/17 12:00 07/28/17 12:00 - Constitutional Appears: Non-toxic, Chronically Ill - Head Exam Head Exam: NORMOCEPHALIC - Eye Exam Eye Exam: PERRL - ENT Exam ENT Exam: Mucous Membranes Dry - Neck Exam Neck Exam: absent: Lymphadenopathy - Respiratory Exam Respiratory Exam: Decreased Breath Sounds - Cardiovascular Exam Cardiovascular Exam: REGULAR RHYTHM - GI/Abdominal Exam GI & Abdominal Exam: Distended - Rectal Exam Rectal Exam: Deferred Assessment and Plan (1) Acute renal injury Status: Acute (2) Anemia Status: Acute (3) Exacerbation of systemic lupus erythematosus Status: Acute (4) Shingles Status: Acute
--- NOTE | 2017-07-29 14:39 | CP.PCM.PN ---
Subjective - Date & Time of Evaluation Date of Evaluation: 07/29/17 Time of Evaluation: 14:38 - Subjective Subjective: Nephrology Consultation Note Assessment: Stable Acute Kidney Injury (N17.9) ? 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 resolved DELGADO Hypertension control with meds as ordered. 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 Explained possibility in future of worsening of renal parameters (such as proteinuria or serum cr rise) and will need evaluation with kidney biopsy and different treatment with immunosuppression in that case. she will need close renal follow up heme ID and rheum following. Dose meds/antibiotics for GFR >60. Glycemic control Further work up for as per primary team Thanks for allowing me to participate in care of your patient. Will follow patient with you. Please call if any Qs Dr Denzel Cruz Office: [phone] Subjective: Noted events overnight. Patients feels sick with diffuse joint pain. Denies chest pain, palpitation, shortness of breath, leg swelling. c/o left side pleuritic pain on deep breaths All other negative Hx of SLE x 12 years Physical Examination: General Appearance: comfortable, in no acute respiratory distress, co-operative . Vitals reviewed and noted as below Head; Atraumatic, normocephalic ENT: no ulcers no thrush. Tongue is midline. Oropharynx: no rash or ulcers. EYES: Pupils are equal, round and reactive to light accommodation. Eye muscles and extraocular movement intact. Sclera is anicteric. Neck; supple no lymphadenopathy, no thyromegaly or bruit Lungs: Normal respiratory rate/effort. Breath sounds bilateral equal and clear Heart: Normal rate. s1s2 normal. No rub or gallop. Extremities: no edema. No varicose veins Neurological: Patient is alert, awake and oriented to person, place and time. No focal deficit. Strength bilateral appropriate and equal Skin: Warm and dry. Normal turgor. No rash. Palpitation: Normal elasticity for age. shingles rash resolved Abdomen: Abdomen is soft. Bowel sounds +. There is no abdominal tenderness, no guarding/rigidity no organomegaly Psych: normal insight and normal affect/mood MSK: Digits and nails normal, no deformity. diffuse arthralgia + : kidney or bladder not palpable Labs/imaging reviewed. Past medical history, past surgical history, family history, social history, allergy reviewed and noted as below Family hx: no hx of CKD. Rest non-contributory renal sono: mildly echogenic kidneys C3<40 c4: 8 Objective - Vital Signs/Intake and Output Vital Signs (last 24 hours): Temp Pulse Resp BP Pulse Ox 98.2 F 98 H 20 123/84 97 07/29/17 07:00 07/29/17 10:39 07/29/17 07:00 07/29/17 10:39 07/29/17 07:00 Intake and Output: 07/29/17 07/29/17 06:59 18:59 Intake Total 200 Balance 200 - Medications Medications: Current Medications Acetaminophen (Tylenol 325mg Tab) 650 mg PO Q6 PRN PRN Reason: Pain, moderate (4-7) Last Admin: 07/27/17 13:21 Dose: 650 mg Folic Acid (Folic Acid) 1 mg PO DAILY [facility] Last Admin: 07/29/17 10:40 Dose: 1 mg Heparin Sodium (Porcine) (Heparin) 5,000 units SC Q8 [facility] Last Admin: 07/29/17 05:35 Dose: 5,000 units Hydroxychloroquine Sulfate (Plaquenil) 200 mg PO BID [facility] PRN Reason: Protocol Last Admin: 07/29/17 10:42 Dose: 200 mg Levetiracetam (Keppra) 750 mg PO BID [facility] Last Admin: 07/29/17 10:42 Dose: 750 mg Lisinopril (Zestril) 10 mg PO DAILY [facility] Last Admin: 07/29/17 10:42 Dose: 10 mg Oxycodone/Acetaminophen (Percocet 5/325 Mg Tab) 1 tab PO Q6H PRN PRN Reason: Pain, severe (8-10) Stop: 07/31/17 13:39 Last Admin: 07/29/17 10:40 Dose: 1 tab Valacyclovir HCl (Valtrex) 500 mg PO BID [facility] PRN Reason: Protocol Last Admin: 07/29/17 10:44 Dose: 500 mg - Labs Labs: 07/28/17 12:00 07/28/17 12:00
[2017-07-29 15:40] VITALS: BP 123/81; PULSE 87; TEMP 97.8; O2SAT 98
[2017-07-29 16:25] LABS: RNP 7.9 AI (<1.0)
--- NOTE | 2017-07-30 00:29 | CP.PCM.PN ---
Subjective - Date & Time of Evaluation Date of Evaluation: 07/29/17 Time of Evaluation: 14:00 - Subjective Subjective: Feeling better Objective - Vital Signs/Intake and Output Vital Signs (last 24 hours): Temp Pulse Resp BP Pulse Ox 97.8 F 87 20 123/81 98 07/29/17 15:00 07/29/17 15:00 07/29/17 15:00 07/29/17 15:00 07/29/17 15:00 Intake and Output: 07/29/17 07/30/17 18:59 06:59 Intake Total 350 Balance 350 - Labs Labs: 07/28/17 12:00 07/28/17 12:00 - Head Exam Head Exam: ATRAUMATIC - Eye Exam Eye Exam: Normal appearance - ENT Exam ENT Exam: Mucous Membranes Dry - Respiratory Exam Respiratory Exam: NORMAL BREATHING PATTERN - Cardiovascular Exam Cardiovascular Exam: +S1, +S2 - GI/Abdominal Exam GI & Abdominal Exam: Normal Bowel Sounds Assessment and Plan (1) Anemia Assessment & Plan: chronic disease and bone marrow suppression from immunosuppression Status: Acute
--- NOTE | 2017-07-30 08:59 | CP.PCM.DIS ---
Provider - Provider Date of Admission: 07/26/17 21:28 Attending physician: Moises Ruvalcaba MD Time Spent in preparation of Discharge (in minutes): 12 Hospital Course - Lab Results Lab Results: Most Recent Lab Values WBC 3.0 K/uL (4.8-10.8) L 07/28/17 12:00 RBC 3.14 Mil/uL (3.80-5.20) L 07/28/17 12:00 Hgb 8.7 g/dL (11.0-16.0) L 07/28/17 12:00 Hct 26.3 % (34.0-47.0) L 07/28/17 12:00 MCV 83.6 fL (81.0-99.0) 07/28/17 12:00 MCH 27.8 pg (27.0-31.0) 07/28/17 12:00 MCHC 33.3 g/dL (33.0-37.0) 07/28/17 12:00 RDW 13.7 % (11.5-14.5) 07/28/17 12:00 Plt Count 296 K/uL (130-400) 07/28/17 12:00 MPV 9.2 fL (7.2-11.7) 07/28/17 12:00 Neut % (Auto) 56.3 % (50.0-75.0) 07/28/17 12:00 Lymph % (Auto) 32.2 % (20.0-40.0) 07/28/17 12:00 Republic % (Auto) 9.6 % (0.0-10.0) 07/28/17 12:00 Eos % (Auto) 0.9 % (0.0-4.0) 07/28/17 12:00 Baso % (Auto) 1.0 % (0.0-2.0) 07/28/17 12:00 Neut # (Auto) 1.7 K/uL (1.8-7.0) L 07/28/17 12:00 Lymph # (Auto) 1.0 K/uL (1.0-4.3) 07/28/17 12:00 Republic # (Auto) 0.3 K/uL (0.0-0.8) 07/28/17 12:00 Eos # (Auto) 0.0 K/uL (0.0-0.7) 07/28/17 12:00 Baso # (Auto) 0.0 K/uL (0.0-0.2) 07/28/17 12:00 ESR 77 mm/hr (0-20) H 07/27/17 16:33 Retic Count 1.2 % (0.5-1.5) 07/28/17 06:18 Sodium 142 mmol/L (132-148) 07/28/17 12:00 Potassium 4.2 mmol/L (3.6-5.2) 07/28/17 12:00 Chloride 113 mmol/L (98-107) H 07/28/17 12:00 Carbon Dioxide 20 mmol/L (22-30) L 07/28/17 12:00 Anion Gap 13 (10-20) 07/28/17 12:00 BUN 13 mg/dL (7-17) 07/28/17 12:00 Creatinine 0.7 mg/dL (0.7-1.2) 07/28/17 12:00 Est GFR ( Amer) > 60 07/28/17 12:00 Est GFR (Non-Af Amer) > 60 07/28/17 12:00 Random Glucose 75 mg/dL (65-105) 07/28/17 12:00 Calcium 8.4 mg/dl (8.6-10.4) L 07/28/17 12:00 Magnesium 1.6 mg/dL (1.6-2.3) 07/26/17 19:54 Ferritin 209.0 ng/mL 07/28/17 06:18 Total Bilirubin 0.5 mg/dL (0.2-1.3) 07/26/17 19:54 AST 39 U/L (14-36) H 07/26/17 19:54 ALT 15 U/L (9-52) 07/26/17 19:54 Alkaline Phosphatase 79 U/L (38-126) 07/26/17 19:54 Total Creatine Kinase 179 U/L (30-135) H 07/26/17 19:54 C-React Prot High Sens > 15.00 mg/L (1.00-3.00) H 07/27/17 16:33 Total Protein 8.1 g/dL (6.3-8.3) 07/26/17 19:54 Albumin 3.1 g/dL (3.5-5.0) L 07/26/17 19:54 Globulin 4.9 gm/dL (2.2-3.9) H 07/26/17 19:54 Albumin/Globulin Ratio 0.6 (1.0-2.1) L 07/26/17 19:54 Vitamin B12 604 pg/mL (239-931) 07/28/17 06:18 Folate > 20.0 ng/mL 07/28/17 06:18 Urine Color Yellow (YELLOW) 07/27/17 18:59 Urine Clarity Hazy (Clear) 07/27/17 18:59 Urine pH 6.0 (5.0-8.0) 07/27/17 18:59 Ur Specific Crowley 1.010 (1.003-1.030) 07/27/17 18:59 Urine Protein 2+ mg/dL (NEGATIVE) H 07/27/17 18:59 Urine Glucose (UA) Normal mg/dL (Normal) 07/27/17 18:59 Urine Ketones Negative mg/dL (NEGATIVE) 07/27/17 18:59 Urine Blood 1+ (NEGATIVE) H 07/27/17 18:59 Urine Nitrate Negative (NEGATIVE) 07/27/17 18:59 Urine Bilirubin Negative (NEGATIVE) 07/27/17 18:59 Urine Urobilinogen Normal mg/dL (0.2-1.0) 07/27/17 18:59 Ur Leukocyte Esterase Trace Yareli/uL (Negative) 07/27/17 18:59 Urine WBC (Auto) 7 /hpf (0-5) H 07/27/17 18:59 Urine RBC (Auto) 7 /hpf (0-3) H 07/27/17 18:59 Ur Squamous Epith Cells 8 /hpf (0-5) H 07/27/17 18:59 Urine Bacteria Rare (<OCC) 07/27/17 18:59 Ur Random Creatinine 52.4 mg/dL 07/27/17 18:59 U Random Total Protein 97.0 mg/dL (0.0-12.0) H 07/27/17 19:41 Urine HCG, Qual Negative (NEGATIVE) 07/26/17 20:53 Urine Opiates Screen Negative (NEGATIVE) 07/26/17 20:53 Urine Methadone Screen Negative (NEGATIVE) 07/26/17 20:53 Ur Barbiturates Screen Negative (NEGATIVE) 07/26/17 20:53 Ur Phencyclidine Scrn Negative (NEGATIVE) 07/26/17 20:53 Ur Amphetamines Screen Negative (NEGATIVE) 07/26/17 20:53 U Benzodiazepines Scrn Negative (NEGATIVE) 07/26/17 20:53 U Oth Cocaine Metabols Negative (NEGATIVE) 07/26/17 20:53 U Cannabinoids Screen Negative (NEGATIVE) 07/26/17 20:53 MARCELINA 6 Profile Positive (NEGATIVE) H 07/27/17 16:33 MARCELINA Titer 1:320 H 07/27/17 16:33 MARCELINA Pattern Homogenous H 07/27/17 16:33 SS-A Antibody >8.0 AI (<1.0) H 07/27/17 16:33 SS-B Ab Interp Positive (Negative) H 07/27/17 16:33 SS-B Antibody <1.0 AI (<1.0) 07/27/17 16:33 SS-B Ab Interp Negative (Negative) 07/27/17 16:33 [employer]CIAL SERVICE TECHNICIAN Antibody 7.9 AI (<1.0) H 07/27/17 16:33 COMMERCIAL SERVICE TECHNICIAN Antibody Interp Positive (Negative) H 07/27/17 16:33 Double Strand DNA Ab >300 IU/mL H 07/27/17 16:33 Complement C3 < 40.0 mg/dL (88.0-165.0) L 07/27/17 16:33 Complement C4 8.4 mg/dL (14.0-44.0) L 07/27/17 16:33 Hepatitis A IgM Ab Negative (NEGATIVE) 07/28/17 06:18 Hep Bs Antigen Negative (NEGATIVE) 07/28/17 06:18 Hep B Core IgM Ab Negative (NEGATIVE) 07/28/17 06:18 Hepatitis C Antibody Negative (NEGATIVE) 07/28/17 06:18 HIV 1&2 Antibody Screen Negative (NEGATIVE) 07/28/17 06:18 Anti-Staphylolysin O Negative (NEGATIVE) 07/27/17 16:33 - Hospital Course Hospital Course: Pt is seen and examined, is stable for discharge, cultures neg, pt is feeling better Discharge Exam - Head Exam Head Exam: ATRAUMATIC - Eye Exam Eye Exam: Normal appearance - ENT Exam ENT Exam: Mucous Membranes Moist - Cardiovascular Exam Cardiovascular Exam: REGULAR RHYTHM, +S1, +S2 - GI/Abdominal Exam GI & Abdominal Exam: Normal Bowel Sounds - Rectal Exam Rectal Exam: Deferred Discharge Plan - Discharge Medications Prescriptions: Lisinopril [Zestril] 10 mg PO DAILY #30 tab - Follow Up Plan Condition: FAIR Disposition: HOME/ ROUTINE Instructions: Acute Kidney Failure (DC), Normocytic Normochromic Anemia (DC) Additional Instructions: Please follow up with PMD in 1 week Please follow up with in 1-2 weeks Please follow up with Dr. Guillermo office in 2 weeks continue medication as per med. rec. Please merchandise pickup/receiving associate you lisinopril from [facility] Referrals: Remigio Guillermo MD [Staff Provider] - Heriberto Morataya MD [Staff Provider] - Moises Ruvalcaba MD [Staff Provider] -
== END 2017-07-29 18:45 | disposition home or self-care (01) | DRG 546 ==
LOC: C.ER 18:01 → C.9E 21:28 → C.6T 21:51
PROVIDERS: ADMIT Internal Medicine; ATTEND Internal Medicine
DX: M32.14 Glomerular disease in systemic lupus erythematosus (principal); N17.9 Acute kidney failure, unspecified; I12.9 Hypertensive chronic kidney disease with stage 1 through stage 4 chronic kidney disease, or unspecified chronic kidney disease; N18.9 Chronic kidney disease, unspecified; R31.29 Other microscopic hematuria; G40.909 Epilepsy, unspecified, not intractable, without status epilepticus; B02.9 Zoster without complications; D63.8 Anemia in other chronic diseases classified elsewhere; Z90.49 Acquired absence of other specified parts of digestive tract